=== PATIENT | female | born 1990 | race Two or more races ===

== ENCOUNTER → 2021-09-10 12:45 | Outpatient (BNVA) | payer OTHER, SELFPAY | PROVIDERS: PCP Internal Medicine; Referring Provider Internal Medicine; Visit Provider Physician Assistant ==

== ENCOUNTER → 2021-10-02 08:13 | Outpatient (BNVA) | payer OTHER, SELFPAY | PROVIDERS: PCP Internal Medicine; Visit Provider Dietitian, Registered | DX: E66.01 Morbid (severe) obesity due to excess calories (principal) | CPT/HCPCS: 97802 ==

== ENCOUNTER → 2021-10-22 08:14 | Outpatient (BNVA) | payer OTHER, SELFPAY | PROVIDERS: PCP Internal Medicine; Referring Provider Physician Assistant; Visit Provider Dietitian, Registered | DX: E66.9 Obesity, unspecified (principal) | CPT/HCPCS: 97803 ==

== ENCOUNTER → 2021-11-04 13:30 | Outpatient (BNVA) | payer OTHER, SELFPAY | PROVIDERS: PCP Internal Medicine; Visit Provider Counselor Mental Health | DX: Z13.89 Encounter for screening for other disorder (principal) ==

== ENCOUNTER → 2021-11-18 08:15 | Outpatient (BNVA) | payer OTHER, SELFPAY | PROVIDERS: PCP Internal Medicine; Referring Provider Physician Assistant; Visit Provider Dietitian, Registered | DX: Z13.89 Encounter for screening for other disorder (principal) ==

== ENCOUNTER 2024-05-08 10:30 | Outpatient (AMB) | payer OTHER, SELFPAY ==
--- NOTE | 2024-05-08 10:17 | A.OFFPC_ITS ---
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 Intake Note: New patient visit Allergies peanut Allergy (Severe, Verified 05/08/24 10:17) Anaphylaxis tree nut Allergy (Severe, Verified 05/08/24 10:17) Anaphylaxis, HIVE Tobacco use date assessed: 05/08/24 Dental Screening Dental Screen Date: 05/08/24 Did you have a dental visit in the last 12 months?: No Did you have a dental problem in the last 6 months where you did not have access to dental care?: No Was dental information given to patient?: Yes HPI HPI Comments 2 History of Present Illness Details This is a 34-year-old female with a past medical history of binge eating disorder, depression, obstructive sleep apnea, PCOS, asthma and morbid obesity presenting to [facility]. She transferred from [facility]. She is a hospital discharge follow up. She brought records from the hospitalization to her appointment today. Patient had acute hypoxic respiratory failure with hypercapnia secondary to status asthmaticus that was exacerbated by parainfluenza viral infection and community acquired pneumonia. She required intubation 02/07/2024. She was extubated on 02/18/2024 to BiPAP and weaned down to room air. She was treated with a course of antibiotics, Depo-Medrol and budesonide and oral prednisone. She was evaluated for cardiomyopathy with echocardiogram showing 40-45% ejection fraction. Cardiology was consulted. She was instructed to remain on Lasix 40 mg twice daily on discharge. She had an KAMILA. She had normal renal function prior to admission. During admission creatinine peaked at 2.49 and at discharge was between 1.4 and 1.6. Notes indicate she had elevated transaminase levels secondary to congestive hepatopathy. She was discharged to [place] for 5 days. She did PT and OT. Today patient says she is doing much better. She feels thankful to be alive. It was very traumatic. Her blood pressure is elevated today. Patient attributes this to healthcare anxiety stemming from the hospitalization. She says typically her blood pressure is 120/80. Dr.. Guillen is her expressive art therapist. She had an echo 04/21/24. She did not get the results yet. She has a follow up scheduled. She continues Lasix 40 mg twice daily and potassium supplementation. She monitors her weight every day. She is following a low-sodium diet. She has lost weight. Dr. Shirley is her color matcher. She had pulmonary function tests done in March, and she has a follow up in June. She has a center based sleep study scheduled this week. She uses a CPAP at night. She is not on supplemental oxygen. She was on Breo in rehab. She had a cold a week ago. She required her rescue inhaler for wheezing, and her symptoms resolved. She quit smoking cigarettes entirely. She smokes a small amount of cannabis once a month. This is substantially less than she was using prior to hospitalization. She takes Seroquel as needed from the hospital at night to help her sleep. She is not using this frequently. She was seeing a traditional therapist, and now she has transferred care to a holistic therapist. She feels well supported by friends and family. She is treated with Prozac for depression. She needs a refill on the medication. She went through a break-up last year after a 3 year relationship. There was also a lot of changes at her job. She works at an [employer] center. Her epipen is UTD. She is allergic to peanuts and tree nuts. ROS: Constitutional: No unexplained weight loss, fever, chills, fatigue or night sweats. Respiratory: No shortness of breath, cough or sputum production. Cardiovascular: No chest pain, chest pressure or chest discomfort. No palpitations or pedal edema. Psychiatric: No SI/HI. Physical exam: Constitutional: Alert, in no distress. Neck: Supple, Full range of motion. No lymphadenopathy. Respiratory: Clear to auscultation. Cardiovascular: S1 S2 regular. No murmurs. Neurologic: No focal neurological deficits. Extremities: Warm and well perfused. No clubbing, cyanosis or edema. Psychiatric: Normal mood and affect [facility] Medical History (Updated 05/08/24 @ 11:46 by MICHELE Kam) Major depressive disorder Severe obesity KAMILA (acute kidney injury) History of fluid overload Cardiomyopathy CAP (community acquired pneumonia) Respiratory failure with hypoxia and hypercapnia Surgical History (Updated 09/10/21 @ 13:00 by Franchesca España CMA) Hx of tonsillectomy Family History (Updated 05/08/24 @ 10:18 by Sugey Nesbitt CMA) Mother Lupus Psoriasis Kidney stone Asthma Allergies Father Thyroid condition Asthma Addiction Hypertension Stroke Brother ADHD Brother Autism Brother Obesity Brother Obesity Sister Obesity Social History (Updated 09/10/21 @ 13:06 by Franchesca España CMA) Housing: Apartment Alcohol intake: current Alcohol intake frequency: holidays/special occasions only Patient Tobacco Use Status: Former Tobacco user Cigarettes Per Day: 5 Years Smoked: 10 e-Cigarette/Vaping Use: Never Used Second Hand Smoke Exposure: No service: No Current occupational status: employed 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 How often do you have a drink containing alcohol?: Monthly or less 2. How many drinks containing alcohol do you have on a typical day when you are drinking?: 1 or 2 3. How often do you have six or more drinks on one occasion?: Never Total Score: 1 Physical exam (Primary Care) Vital Signs: Last Vital Signs Temp 98.8 F 05/08/24 10:44 Pulse 96 05/08/24 10:44 Resp 18 05/08/24 10:44 BP 141/77 H 05/08/24 10:44 Pulse Ox 98 05/08/24 10:44 Oxygen Delivery Method Room Air 05/08/24 10:44 BMI result Body Mass Index 60.6 Tobacco/Smoking Status: Tobacco use Status Tobacco use date assessed 05/08/24 05/08/24 10:19 Patient Tobacco Use Status Former Tobacco user 05/08/24 10:19 e-Cigarette/Vaping Use Never Used 05/08/24 10:19 Assessment and Plan Assessment & Plan (1) Major depressive disorder: Code(s): F32.9 - Major depressive disorder, single episode, unspecified Qualifiers: Major depression recurrence: recurrent Active/Remission status: currently active Major depression episode severity: unspecified Qualified Code(s): F33.9 - Major depressive disorder, recurrent, unspecified (2) MARJORIE on CPAP: Code(s): G47.33 - Obstructive sleep apnea (adult) (pediatric); Z99.89 - Dependence on other enabling machines and devices (3) Asthma: Code(s): J45.909 - Unspecified asthma, uncomplicated Qualifiers: Asthma severity: mild Asthma persistence: persistent Asthma complication type: uncomplicated Qualified Code(s): J45.30 - Mild persistent asthma, uncomplicated (4) Cardiomyopathy: Code(s): I42.9 - Cardiomyopathy, unspecified Qualifiers: Cardiomyopathy type: unspecified Qualified Code(s): I42.9 - Cardiomyopathy, unspecified (5) CAP (community acquired pneumonia): Code(s): J18.9 - Pneumonia, unspecified organism Qualifiers: Laterality: unspecified laterality Qualified Code(s): J18.9 - Pneumo molly, unspecified organism (6) Respiratory failure with hypoxia and hypercapnia: Code(s): J96.91 - Respiratory failure, unspecified with hypoxia; J96.92 - Respiratory failure, unspecified with hypercapnia Qualifiers: Chronicity: acute Qualified Code(s): J96.01 - Acute respiratory failure with hypoxia; J96.02 - Acute respiratory failure with hypercapnia (7) KAMILA (acute kidney injury): Code(s): N17.9 - Acute kidney failure, unspecified (8) Morbid obesity: Code(s): E66.01 - Morbid (severe) obesity due to excess calories Plan The patient recovered well following hospitalization for acute respiratory failure secondary to asthma exacerbation due to parainfluenza virus infection and community-acquired pneumonia. She went back to work last week. 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 She is doing fine with this. She feels well supported by her therapist and friends and family. I refilled her fluoxetine. She can continue Seroquel 25 mg at night as needed. She does not take it frequently. She had an echocardiogram repeated. Results are pending. She continues Lasix per Cardiology recommendations. No evidence of fluid overload on exam today. She will contact her color matcher to ask if she should restart a maintenance inhaler as she was on Breo during rehab. I recommended calling today rather than waiting until the follow up in June since we are heading into the viral season. I recommend seasonal influenza vaccine and pneumonia vaccine. Check CMP. Patient will continue her efforts at weight loss. We can discuss options to support weight loss in more detail at her follow up if she is open to that. Continue CPAP. She has a sleep study scheduled this week. Patient's blood pressure is mildly elevated today. She has PTSD related to healthcare now. I gave her a prescription for a blood pressure cuff. She will monitor at home a couple of times per week and bring the cuff and home log to her appointment in a month. Orders: Orders Comprehensive Met. Panel Today N17.9 - Acute kidney failure, unspecified Medications: New fluoxetine 10 mg PO DAILY 90 caps 3RF blood pressure kit-extra large As directed 1 ea 0RF blood pressure kit-extra large As directed 1 ea 0RF Coding Level of Care Code New Pt Level 4 (48820) Complex EM visit Add On G2211 Diagnoses Episode of recurrent major depressive disorder, unspecified depression episode severity F33.9 Major depression recurrence: recurrent Active/Remission status: currently active Major depression episode severity: unspecified MARJORIE on CPAP G47.33; Z99.89 Mild persistent asthma without complication J45.30 Asthma severity: mild Asthma persistence: persistent Asthma complication type: uncomplicated Cardiomyopathy, unspecified type I42.9 Cardiomyopathy type: unspecified Community acquired pneumonia, unspecified laterality J18.9 Laterality: unspecified laterality Acute respiratory failure with hypoxia and hypercapnia J96.01; J96.02 Chronicity: acute KAMILA (acute kidney injury) N17.9 Morbid obesity E66.01
[2024-05-08 10:44] VITALS: BP 141/77; PULSE 96; RESP 18; TEMP 37.1; O2SAT 98; BMI 60.6
[2024-05-08 10:54] VITALS: BP 137/94
== END 2024-05-08 11:26 | disposition home or self-care (01) ==
PROVIDERS: PCP Internal Medicine; Visit Provider Physician Assistant Medical
DX: I42.9 Cardiomyopathy, unspecified (principal); F33.9 Major depressive disorder, recurrent, unspecified; Z68.44 Body mass index [BMI] 60.0-69.9, adult; E66.01 Morbid (severe) obesity due to excess calories; J96.01 Acute respiratory failure with hypoxia; J96.02 Acute respiratory failure with hypercapnia; N17.9 Acute kidney failure, unspecified; G47.33 Obstructive sleep apnea (adult) (pediatric); Z99.89 Dependence on other enabling machines and devices; J45.30 Mild persistent asthma, uncomplicated; J18.9 Pneumonia, unspecified organism

== ENCOUNTER → 2024-05-08 10:30 | Outpatient (BNVA) | payer OTHER, SELFPAY | PROVIDERS: PCP Internal Medicine; Visit Provider Physician Assistant Medical ==

== ENCOUNTER 2024-05-08 11:31 | Outpatient (REF) | payer OTHER, SELFPAY ==
[2024-05-08 14:41] LABS: Alanine Aminotransferase 12 U/L (0-31); Alkaline Phosphatase 49 U/L (39-117); Anion Gap 11 (12-20); Aspartate Amino Transferase 10 U/L (5-31); Bilirubin Total 0.3 mg/dL (0.0-1.0); Blood Urea Nitrogen 19 mg/dL (9-16); Calcium 9.9 mg/dL (8.4-10.2); Carbon Dioxide 31 mmol/L (22-29); Chloride 104 mmol/L (96-108); Estimated Glomerular Filt Rate > 60; Glucose Random 91 mg/dL (60-115); Potassium 4.1 mmol/L (3.3-5.1); Sodium 142 mmol/L (135-145); Total Protein 7.3 g/dL (6.5-8.0)
== END 2024-05-08 11:32 | disposition home or self-care (01) ==
LOC: HO.WFDLDS 11:31
PROVIDERS: Visit Provider Physician Assistant Medical
DX: N17.9 Acute kidney failure, unspecified (principal)
CPT/HCPCS: 36415; 80053

== ENCOUNTER 2024-06-05 09:57 | Outpatient (AMB) | payer OTHER, SELFPAY ==
--- NOTE | 2024-06-05 10:03 | MHC.PC.OV ---
Vital Signs 06/05/24 10:06 Height 5 ft 3 in Weight 358 lb 2 oz BMI 63.4 BP 128/82 Blood Pressure Location Lt brachial Position Sitting Respiration 18 Pulse 105 H Pulse Source Pulse Oximeter Pulse Oximetry (%) 95 Oxygen Delivery Method Room Air Intake Visit Reasons: recheck blood pressure Intake Note: Blood pressure follow up. Needs refill on furosemide 40 mg. 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 Elevated blood pressure her blood pressure was 118/70 at her sleep study last week. Today it is 128/82. She she was checking it at home, but her cuff size is too small and was giving her falsely elevated readings. She has a prescription to get a new cuff. Pulmonary-as you recall the patient had acute hypoxic respiratory failure with hypercapnia secondary to status asthmaticus that was exacerbated by parainfluenza viral infection and community acquired pneumonia. She required intubation 02/07/2024. She was extubated on 02/18/2024 to BiPAP and weaned down to room air. She was treated with a course of antibiotics, Depo-Medrol and budesonide and oral prednisone. She was evaluated for cardiomyopathy with echocardiogram showing 40-45% ejection fraction. Cardiology was consulted. She was instructed to remain on Lasix 40 mg twice daily. She ran out of the prescription a week ago because the last refill from the cardiology office was sent as 40 mg once a day. She does note increased lower extremity edema and weight, but she denies increased shortness of breath, wheezing, chest pain or weakness. She is on a potassium supplement. Dr.. Guillen is her fermenter wine. She had an echo 04/21/24. She did not get the results yet. She is following a low-sodium diet. Patient says she has gained some weight due to dietary indiscretion and being off Lasix for the past week. She is seen weight management in the past, but she does not want surgery. She isn't interested in weight loss medications at this time including GLP 1. She is going to try Noom again. She has a follow up with her fermenter wine in August. Dr. 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 She had pulmonary function tests done in March, and she has a follow up in two weeks.ek. She got her new Bipap last week, and she feels like a new woman. Sleep feels restorative. Daytime fatigue resolved. She is working full-time again, and she isn't feeling like she has to fight through the [place]. She's required her albuterol rescue 3 times within the past month for wheezing. She is going to receive the flu vaccine and pneumonia vaccine at her pharmacy. She quit smoking cigarettes entirely. She has not needed to take Seroquel at night for sleep since her last visit. She is on Prozac for depression which works well. She saw a traditional therapist in the past, and she transferred care to a holistic therapist. Patient works at an [employer]. ROS: Constitutional: No unexplained weight loss, fever, chills, fatigue or night sweats. Respiratory: No shortness of breath, cough or sputum production. Cardiovascular: No chest pain, chest pressure or chest discomfort. No palpitations. Psychiatric: No SI/HI. Physical exam: Constitutional: Alert, in no distress. Neck: Supple, Full range of motion. No lymphadenopathy. Respiratory: Clear to auscultation. No wheezes, crackles or rales. Cardiovascular: S1 S2 regular. No murmurs. Neurologic: No focal neurological deficits. Extremities: Warm and well perfused. No clubbing, cyanosis. 2+ bilateral lower extremity edema. Psychiatric: Normal mood and affect [facility] Medical History (Updated 06/05/24 @ 10:45 by MICHELE Kam) Morbid obesity Asthma MARJORIE on CPAP MARJORIE (obstructive sleep apnea) Major depressive disorder Severe obesity KAMILA (acute kidney injury) History of fluid overload Cardiomyopathy CAP (community acquired pneumonia) Respiratory failure with hypoxia and hypercapnia Surgical History (Updated 09/10/21 @ 13:00 by Franchesca España CMA) Hx of tonsillectomy Family History (Updated 05/08/24 @ 10:18 by Sugey Nesbitt CMA) Mother Lupus Psoriasis Kidney stone Asthma Allergies Father Thyroid condition Asthma Addiction Hypertension Stroke Brother ADHD Brother Autism Brother Obesity Brother Obesity Sister Obesity Social History (Updated 09/10/21 @ 13:06 by Franchesca España [facility]) Housing: Apartment Alcohol intake: current Alcohol intake frequency: holidays/special occasions only Patient Tobacco Use Status: Former Tobacco user Cigarettes Per Day: 5 Years Smoked: 10 e-Cigarette/Vaping Use: Never Used Second Hand Smoke Exposure: No service: No Current occupational status: employed 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 1. Little interest or pleasure in doing things: several days 2. Feeling down, depressed, or hopeless: several days 3. Trouble falling or staying asleep, or sleeping too much: more than half the days 4. Feeling tired or having little energy: nearly every day 5. Poor appetite or overeating: several days 6. Feeling bad about yourself - or that you are a failure or have let yourself or your family down: not at all 7. Trouble concentrating on things, such as reading the newspaper or watching television: several days 8. Moving or speaking so slowly that other people could have noticed. Or the opposite - being so fidgety or restless that you have been moving around a lot more than usual: not at all 9. Thoughts that you would be better off or of hurting yourself in some way: not at all Total score: 9 Depression Screening Interpretation: Positive Depression Screening Follow-up: Existing condition and In treatment Depression Screening Done: Yes Source: Developed by Drs. Casey Samuel, Diane Doyle, Surya James and colleagues, with an educational newton from [employer]. Thrive Questionnaire I am a: Patient What is your living situation today?: I have a steady place to live Within the past 12 months, did the food you bought not last and you didn't have the money to get more?: Never true Within the past 12 months, did you worry whether your food would run out before you got money to buy more?: Never true Do you have trouble paying for medicines?: No Do you have trouble getting transportation to medical appointments?: No Do you have trouble paying your heating and electricity bill?: No Do you have trouble taking care of your child, family member or friend?: No Do you have trouble with day-to-day activities such as bathing, preparing meals, shopping, managing finances, etc.?: No Are you currently unemployed and looking for a job?: No Are you interested in more education?: No Please select the resources that you would like help with: None Currently or been in a relationship where the following occur: No concerns reported THRIVE Score: 0 AUDIT C Alcohol Use Questionnaire (AUDIT-C) 1. How often do you have a drink containing alcohol?: Monthly or less Total Score: 1 CONOR-7 AMB Questionnaire CONOR-7 Feeling nervous, anxious, or on edge: 1 = Several days Not being able to stop or control worryin = Several days Worrying too much about different things: 0 = Not at all Trouble relaxin = Several days Being so restless that it is hard to sit still: 0 = Not at all Becoming easily annoyed or irritable: 1 = Several days Feeling afraid as if something awful might happen: 0 = Not at all Total CONOR-7 score (0-4 normal; 5-9 mild; 10-14 moderate; 15-21 severe): 4 Source: Developed by Drs. Casey Samuel, Diane Doyle, Surya James and colleagues, with an educational newton from [employer]. Physical exam (Primary Care) Vital Signs: Last Vital Signs Pulse 105 H 06/05/24 10:06 Resp 18 06/05/24 10:06 BP 128/82 06/05/24 10:06 Pulse Ox 95 06/05/24 10:06 Oxygen Delivery Method Room Air 06/05/24 10:06 BMI result Body Mass Index 63.4 Tobacco/Smoking Status: Tobacco use Status Tobacco use date assessed 05/08/24 06/05/24 10:04 Patient Tobacco Use Status Former Tobacco user 06/05/24 10:04 e-Cigarette/Vaping Use Never Used 06/05/24 10:04 PHQ-9: PHQ-9 Score PHQ-9: Total score 9 06/05/24 10:29 Depression Screening Interpretation: Positive Depression Screening Follow-up: Existing condition and In treatment Currently or been in a relationship where the following occur: No concerns reported Coding Level of Care Code Est Pt Level 4 (86297) Complex EM visit Add On G2211 Diagnoses Acute respiratory failure with hypoxia and hypercapnia J96.01; J96.02 Chronicity: acute MARJORIE (obstructive sleep apnea) G47.33 Morbid obesity E66.01 Mild persistent asthma without complication J45.30 Asthma severity: mild Asthma persistence: persistent Asthma complication type: uncomplicated Cardiomyopathy, unspecified type I42.9 Cardiomyopathy type: unspecified Episode of recurrent major depressive disorder, unspecified depression episode severity F33.9 Major depression recurrence: recurrent Active/Remission status: currently active Major depression episode severity: unspecified Assessment & Plan Assessment & Plan (1) Respiratory failure with hypoxia and hypercapnia: Code(s): J96.91 - Respiratory failure, unspecified with hypoxia; J96.92 - Respiratory failure, unspecified with hypercapnia Category: Medical Qualifiers: Chronicity: acute Qualified Code(s): J96.01 - Acute respiratory failure with hypoxia; J96.02 - Acute respiratory failure with hypercapnia (2) MARJORIE (obstructive sleep apnea): Code(s): G47.33 - Obstructive sleep apnea (adult) (pediatric) Category: Medical (3) Morbid obesity: Code(s): E66.01 - Morbid (severe) obesity due to excess calories Category: Medical (4) Asthma: Code(s): J45.909 - Unspecified asthma, uncomplicated Category: Medical Qualifiers: Asthma severity: mild Asthma persistence: persistent Asthma complication type: uncomplicated Qualified Code(s): J45.30 - Mild persistent asthma, uncomplicated (5) Cardiomyopathy: Code(s): I42.9 - Cardiomyopathy, unspecified Category: Medical Qualifiers: Cardiomyopathy type: unspecified Qualified Code(s): I42.9 - Cardiomyopathy, unspecified (6) Major depressive disorder: Code(s): F32.9 - Major depressive disorder, single episode, unspecified Category: Medical Qualifiers: Major depression recurrence: recurrent Active/Remission status: currently active Major depression episode severity: unspecified Qualified Code(s): F33.9 - Major depressive disorder, recurrent, unspecified Plan The patient and I discussed the impact of morbid obesity on her medical conditions. She declines referral to weight loss management, and she does not want to take weight loss medications. She is going to try Noom again. I refilled her furosemide prescription. She will pick it up today. Recent electrolytes and renal function within normal. Patient will keep her follow up appointment scheduled with pulmonology and Cardiology. She will receive influenza and pneumococcal vaccines at the pharmacy. She is feeling well using her new BiPAP for MARJORIE. Stable on fluoxetine for depression. She is not currently taking Seroquel, but I will keep it on her med list for now. Patient's blood pressure normalized. She does have healthcare anxiety following her hospital admission. Follow up in 6 weeks for a physical exam. Medications: Changed From furosemide 40 mg PO BID To furosemide 40 mg PO BID 180 tabs 1RF 90 days
[2024-06-05 10:06] VITALS: BP 128/82; PULSE 105; RESP 18; O2SAT 95; BMI 63.4
== END 2024-06-05 10:43 | disposition home or self-care (01) ==
PROVIDERS: PCP Physician Assistant Medical; Visit Provider Physician Assistant Medical
DX: J96.01 Acute respiratory failure with hypoxia (principal); J96.02 Acute respiratory failure with hypercapnia; E66.01 Morbid (severe) obesity due to excess calories; Z68.44 Body mass index [BMI] 60.0-69.9, adult; I42.9 Cardiomyopathy, unspecified; F33.9 Major depressive disorder, recurrent, unspecified; G47.33 Obstructive sleep apnea (adult) (pediatric); J45.30 Mild persistent asthma, uncomplicated

== ENCOUNTER → 2024-06-05 09:57 | Outpatient (BNVA) | payer OTHER, SELFPAY | PROVIDERS: PCP Physician Assistant Medical; Visit Provider Physician Assistant Medical ==

== ENCOUNTER 2024-07-20 15:33 | Outpatient (AMB) | payer OTHER, SELFPAY ==
--- NOTE | 2024-07-20 15:41 | A.OFFPC_ITS ---
Vital Signs 07/20/24 15:45 Height 5 ft 3 in Weight 361 lb BMI 63.9 BP 115/73 Blood Pressure Location Rt brachial Position Sitting Pulse 107 H Pulse Source Pulse Oximeter Temp 98.2 F Temp Source Temporal Artery Scan Pulse Oximetry (%) 95 Oxygen Delivery Method Room Air Intake Visit Reasons: Has cold, negative covid test Intake Note: Chest congestion, cough. SX started Wednesday. Tested for covid on Wednesday and was negative. Allergies peanut Allergy (Severe, Verified 07/20/24 15:42) Anaphylaxis tree nut Allergy (Severe, Verified 07/20/24 15:42) Anaphylaxis, HIVE Tobacco use date assessed: 05/08/24 Dental Screening Dental Screen Date: 05/08/24 HPI HPI Comments History of Present Illness Details This is a 34-year-old female with a past medical history of MARJORIE, morbid obesity, asthma, community-acquired pneumonia resulting in hospitalization for respiratory failure in 2023 presenting for a sick visit. Patient was informed and verbally consented to the use of an ambient scribe for clinic note documentation during this visit. The symptoms began on , coinciding with dry throat that escalated by Wednesday to cough, wheezing and shortness of breath. Interim self-care involved ekta shots, vitamin C, hydration, and albuterol treatments every four hours which provided relief. 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 This past Wednesday the patient was working from home and contacted our office for evaluation albeit having titrated down albuterol treatment. Her symptoms further included coughing up white phlegm without fever or chills and a minor degree of wheezing and dyspnea. Oxygen saturation was stable, reporting 95% or higher. The historical diagnosis of COVID and recent course of Paxlovid without respiratory complications were noted. The current exacerbation began after recent beginning of Symbicort for maintenance inhalation therapy. She is followed by pulmonology. She quit smoking 6 months ago. She took a COVID test that was negative. Today she used her nebulizer only this morning, and she took her rescue heel inhaler once in the afternoon. Patient says she continues to have a very deep cough. ROS: Constitutional: No fevers or chills or night sweats. Eyes: No eye redness or discharge ENT: No ear pain or sore throat. + nasal congestion. Respiratory: See HPI. No hemoptysis. Cardiovascular: No chest pain, palpitations or increased pedal edema. Gastrointestinal: No anorexia, nausea, vomiting or diarrhea. Physical exam: Constitutional: Alert, in no distress. Ear, Nose and Throat: Canals clear. TMs normal. Nasal mucosa erythematous, clear nasal discharge present. No oral lesions, erythema or exudates. Neck: Supple, Full range of motion. No lymphadenopathy. Respiratory: crackles in right middle/lower posterior lung nesbitt which clear after coughing, normal respiratory effort, no dyspnea Cardiovascular: S1 S2 regular. No murmurs. Extremities: Warm and well perfused. No clubbing, cyanosis or edema. Psychiatric: Normal mood and affect [facility] Medical History (Updated 07/20/24 @ 16:29 by MICHELE Kam) Asthma exacerbation Morbid obesity Asthma MARJORIE on CPAP MARJORIE (obstructive sleep apnea) Major depressive disorder Severe obesity KAMILA (acute kidney injury) History of fluid overload Cardiomyopathy CAP (community acquired pneumonia) Respiratory failure with hypoxia and hypercapnia Surgical History (Updated 09/10/21 @ 13:00 by Franchesca España CRUSHER MACHINE OPERATOR) Hx of tonsillectomy Family History (Updated 05/08/24 @ 10:18 by Sugey Nesbitt CMA) Mother Lupus Psoriasis Kidney stone Asthma Allergies Father Thyroid condition Asthma Addiction Hypertension Stroke Brother ADHD Brother Autism Brother Obesity Brother Obesity Sister Obesity Social History (Updated 09/10/21 @ 13:06 by Franchesca España CMA) Housing: Apartment Alcohol intake: current Alcohol intake frequency: holidays/special occasions only Patient Tobacco Use Status: Former Tobacco user Cigarettes Per Day: 5 Years Smoked: 10 e-Cigarette/Vaping Use: Never Used Second Hand Smoke Exposure: No service: No Current occupational status: employed 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) Cognitive needs: No Hearing needs: No Vision needs: No Questionnaire Thrive Questionnaire Date Thrive assessed: 06/05/24 I am a: Patient What is your living situation today?: I have a steady place to live Within the past 12 months, did the food you bought not last and you didn't have the money to get more?: Never true Within the past 12 months, did you worry whether your food would run out before you got money to buy more?: Never true Do you have trouble paying for medicines?: No Do you have trouble getting transportation to medical appointments?: No Do you have trouble paying your heating and electricity bill?: No Do you have trouble taking care of your child, family member or friend?: No Do you have trouble with day-to-day activities such as bathing, preparing meals, shopping, managing finances, etc.?: No Are you currently unemployed and looking for a job?: No Are you interested in more education?: No Please select the resources that you would like help with: None Currently or been in a relationship where the following occur: No concerns reported THRIVE Score: 0 Physical exam (Primary Care) Vital Signs: Last Vital Signs Temp 98.2 F 07/20/24 15:45 Pulse 107 H 07/20/24 15:45 BP 115/73 07/20/24 15:45 Pulse Ox 95 07/20/24 15:45 Oxygen Delivery Method Room Air 07/20/24 15:45 BMI result Body Mass Index 63.9 Tobacco/Smoking Status: Tobacco use Status Tobacco use date assessed 05/08/24 07/20/24 15:49 Patient Tobacco Use Status Former Tobacco user 07/20/24 15:49 e-Cigarette/Vaping Use Never Used 07/20/24 15:49 Thrive Assessment: Date of Thrive Assessment Date Thrive assessed 06/05/24 07/20/24 15:49 Currently or been in a relationship where the following occur: No concerns reported Coding Level of Care Code Est Pt Level 4 (22110) Complex EM visit Add On G2211 Diagnoses Asthma exacerbation J45.901 Cough R05.9 Assessment & Plan Assessment & Plan (1) Asthma exacerbation: Code(s): J45.901 - Unspecified asthma with (acute) exacerbation Category: Medical (2) Cough: Code(s): R05.9 - Cough, unspecified Plan Patient prescribed prednisone and azithromycin. Stat chest x-ray ordered. Continue albuterol via nebulizer or inhaler every 4 hours as needed for coughing, wheezing and shortness of breath. Continue Symbicort 2 puffs twice daily. Warning signs warranting ER evaluation reviewed. Orders: Orders XR chest 2V Today R05.9 - Cough, unspecified Medications: New albuterol sulfate 90 mcg/actuation 2 puffs inhalation Q4H PRN 8.5 grams 3RF wheezing prednisone orally daily; Take 3 tabs po qam x 3 days, then take 2 tabs po qam x 3 days, then take 1 tab po qam x 3 days 18 tabs 0RF azithromycin For 250 mg dose pack: take 500 mg today (day 1), then 250 mg for 4 days (days 2-5) PO 6 tabs 0RF
[2024-07-20 15:45] VITALS: BP 115/73; PULSE 107; TEMP 36.8; O2SAT 95; BMI 63.9
== END 2024-07-20 16:18 | disposition home or self-care (01) ==
PROVIDERS: PCP Physician Assistant Medical; Visit Provider Physician Assistant Medical
DX: J45.901 Unspecified asthma with (acute) exacerbation (principal); R05.9 Cough, unspecified

== ENCOUNTER 2024-07-22 13:26 | Outpatient (REF) | payer OTHER, SELFPAY ==
--- NOTE | ~2024-07-22 | XR_ITS ---
EXAMINATION: XR CHEST CLINICAL INFORMATION: R05.9 - Cough, unspecified COMPARISON: None available. TECHNIQUE: 2 views of the chest were obtained. FINDINGS: There is no gross pneumothorax. Cardiac silhouette is enlarged. Limited visualization due to body habitus. No significant pleural effusion. Dextroscoliosis of the thoracic spine with multilevel degenerative changes. Prominence of the right hilar region possibly related to vascular technical factors or adenopathy or other lesion. Mild retrocardiac streaky opacities. XR/XR chest 2V IMPRESSION: 1. Cardiac silhouette is enlarged. Limited visualization due to body habitus. 2. Prominence of the right hilar region possibly related to vascular technical factors or adenopathy or other lesion. 3. Mild retrocardiac streaky opacities. This study was presented today to July 19, 2024 for interpretation. Stat results provided at this time as requested by referring provider. Electronically signed by: Emmie Mccoy MD 07/24/2024 09:01 AM KORI
== END 2024-07-22 13:27 | disposition home or self-care (01) ==
LOC: HO.HMGCX 13:26
PROVIDERS: PCP Physician Assistant Medical; Visit Provider Physician Assistant Medical
DX: R05.9 Cough, unspecified (principal)
CPT/HCPCS: 71046

== ENCOUNTER 2024-12-07 14:32 | Outpatient (AMB) | payer OTHER, SELFPAY ==
--- NOTE | 2024-12-07 14:35 | A.OFFPC_ITS ---
Vital Signs 12/07/24 14:43 Height 5 ft 3 in Weight 373 lb 2 oz BMI 66.1 BP 116/72 Blood Pressure Location Rt brachial Position Sitting Respiration 18 Pulse 91 Pulse Source Pulse Oximeter Temp 97.9 F Temp Source Temporal Artery Scan Pulse Oximetry (%) 96 Oxygen Delivery Method Room Air Intake Visit Reasons: annual physical Intake Note: Miriam presents in the office today for her annual physical. Allergies peanut Allergy (Severe, Verified 12/07/24 14:39) Anaphylaxis tree nut Allergy (Severe, Verified 12/07/24 14:39) Anaphylaxis, HIVE mold Allergy (Verified 12/07/24 14:39) Asthma flare Seasonal Allergies Allergy (Verified 12/07/24 14:39) Runny nose, watery eyes Cat dander Allergy (Uncoded 12/07/24 14:38) Itchy eyes, SOB Medication List - Last Reconciled 12/08/24 by MICHELE Kam albuterol sulfate 90 mcg/actuation 2 puffs inhalation Q4H PRN blood pressure kit-extra large As directed budesonide-formoterol 160-4.5 mcg/actuation (Symbicort) 1 inh inhalation BID empagliflozin (Jardiance) 10 mg PO DAILY epinephrine (EpiPen) 0.3 mg (0.3 mL) IM Q10M PRN fluoxetine 10 mg PO DAILY furosemide 40 mg PO BID 90 days loratadine 10 mg PO DAILY losartan 25 mg PO DAILY potassium chloride ER 20 mEq PO DAILY Tobacco use date assessed: 12/07/24 Dental Screening Dental Screen Date: 12/07/24 Did you have a dental visit in the last 12 months?: No Did you have a dental problem in the last 6 months where you did not have access to dental care?: No Was dental information given to patient?: Yes HPI HPI Comments History of Present Illness Details This is a 34-year-old female with a past medical history of binge eating disorder, depression, obstructive sleep apnea, PCOS, asthma and morbid obesity presenting for a physical exam. The patient has a history of acute hypoxic respiratory failure with hypercapnia secondary to status asthmaticus that was exacerbated by parainfluenza viral infection and community acquired pneumonia requiring intubation in February 2024. During hospitalization echocardiogram showed left ventricular ejection fraction around 45%, and Cardiology was consulted. Patient reports having repeat echocardiogram in April 2024, but we do not have the results from that or her most recent cardiology note. Patient said she had a recent follow up, and they told her she is doing well. She remains on furosemide, losartan, Jardiance. Dr. Shirley is her b2b sales consultant. She is using a BiPAP and uses supplemental oxygen at night. She is on Symbicort and albuterol as needed. She also takes loratadine for allergies. She quit smoking cigarettes following hospitalization. She is on Prozac for depression which works well. She is seeing a holistic therapist. The patient has had ongoing discussions about obesity with her providers. BMI is 66.1. She is not interested in bariatric surgery. GLP 1 has been discussed, but she continues to decline it today. She would like to be referred to dietitian because she has not been able to lose weight on her own. She recognizes how her weight impacts her health. She has been overweight all her life. She sees Gynecology for annual exams. She did not receive the pneumonia vaccine which was unavailable at the office today. She was asked to get this at her pharmacy, and I explained the importan ce of it. Also recommended remaining up-to-date with COVID-19 boosters and annual influenza vaccine. She declined Tdap vaccine. ROS: Constitutional: No unexplained weight loss, fever, chills, fatigue or night sweats. Eyes: No vision changes, blurry vision, double vision, eye pain, eye redness, eye discharge. ENT: No hearing loss, sneezing, congestion, runny nose or sore throat. Respiratory: No shortness of breath, cough or sputum production. Cardiovascular: No chest pain, chest pressure or chest discomfort. No palpitations or pedal edema. Gastrointestinal: No anorexia, nausea, vomiting or diarrhea. No abdominal pain or blood in stool. Genitourinary: No dysuria, hematuria, urinary frequency. Neurologic: No headache, dizziness, syncope, unilateral weakness, ataxia, num bness or tingling in the extremities. Musculoskeletal: No muscle pain, back pain, joint pain or swelling. Hematologic/Lymphatics: No bleeding or bruising. No painful lymph nodes. Skin: No rash Endocrine: No cold or heat intolerance. No polyuria or polydipsia. Psychiatric: No depression symptoms and anxiety. No SI or HI. Physical exam: Constitutional: Alert, in no distress. Head: Normocephalic. Eyes: Pupils are equal, round and reactive to light. Extraocular muscles intact. Ear, Nose and Throat: Canals clear. TMs normal. Normal nasal mucosa. No nasal discharge. No oral lesions. Neck: Supple, Full range of motion. No lymphadenopathy. No palpable thyroid masses. Respiratory: Clear to auscultation. Cardiovascular: S1 S2 regular. No murmurs. Gastrointestinal: Abdomen soft, non-tender, non-distended. Normal bowel sounds. No palpable masses. Neurologic: No focal neurological deficits. Symmetric patellar reflexes. Moves all extremities spontaneously. Sensation intact bilaterally. Skin: No rash Musculoskeletal: No gross deformities. Normal range of motion. Extremities: Warm and well perfused. No clubbing, cyanosis. 1+ lower extremity edema bilaterally. Intact peripheral pulses. Psychiatric: Normal mood and affect [facility] Medical History (Updated 12/08/24 @ 09:34 by MICHELE Kam) Routine physical examination Asthma exacerbation Morbid obesity Asthma MARJORIE on CPAP MARJORIE (obstructive sleep apnea) Major depressive disorder Severe obesity KAMILA (acute kidney injury) History of fluid overload Cardiomyopathy CAP (community acquired pneumonia) Respiratory failure with hypoxia and hypercapnia Surgical History (Updated 09/10/21 @ 13:00 by Franchesca España CMA) Hx of tonsillectomy Family History Mother Lupus Psoriasis Kidney stone Asthma Allergies Father Thyroid condition Asthma Addiction Hypertension Stroke Brother ADHD Brother Autism Brother Obesity Brother Obesity Sister Obesity Social History (Updated 12/07/24 @ 14:41 by Suyapa Sy MA) Housing: Apartment Alcohol intake: current Alcohol intake frequency: holidays/special occasions only Patient Tobacco Use Status: Former Tobacco user Cigarettes Per Day: 5 Years Smoked: 10 e-Cigarette/Vaping Use: Never Used Second Hand Smoke Exposure: No Substance Use Type: Marijuana service: No Current occupational status: employed 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 1. Little interest or pleasure in doing things: not at all 2. Feeling down, depressed, or hopeless: not at all 3. Trouble falling or staying asleep, or sleeping too much: not at all 4. Feeling tired or having little energy: several days 5. Poor appetite or overeating: not at all 6. Feeling bad about yourself - or that you are a failure or have let yourself or your family down: not at all 7. Trouble concentrating on things, such as reading the newspaper or watching television: not at all 8. Moving or speaking so slowly that other people could have noticed. Or the opposite - being so fidgety or restless that you have been moving around a lot more than usual: not at all 9. Thoughts that you would be better off or of hurting yourself in some way: not at all Total score: 1 Depression Screening Interpretation: Negative Depression Screening Done: Yes 25957 - PHQ-9 Billing: Patient declined-do not bill Source: Developed by Drs. Casey Samuel, Diane Doyle, Surya James and colleagues, with an educational newton from [employer]. Thrive Questionnaire Date Thrive assessed: 12/07/24 I am a: Patient What is your living situation today?: I have a steady place to live Within the past 12 months, did the food you bought not last and you didn't have the money to get more?: Never true Within the past 12 months, did you worry whether your food would run out before you got money to buy more?: Never true Do you have trouble paying for medicines?: No Do you have trouble getting transportation to medical appointments?: No Do you have trouble paying your heating and electricity bill?: No Do you have trouble taking care of your child, family member or friend?: No Do you have trouble with day-to-day activities such as bathing, preparing meals, shopping, managing finances, etc.?: No Are you currently unemployed and looking for a job?: No Are you interested in more education?: No Please select the resources that you would like help with: None Currently or been in a relationship where the following occur: No concerns reported THRIVE Score: 0 AUDIT C Alcohol Use Questionnaire (AUDIT-C) 1. How often do you have a drink containing alcohol?: 2-4 times a month 2. How many drinks containing alcohol do you have on a typical day when you are drinking?: 1 or 2 3. How often do you have six or more drinks on one occasion?: Never Total Score: 2 Score Reviewed/Action Taken: No CONOR-7 AMB Questionnaire CONOR-7 Date CONOR - 7 assessed: 12/07/24 Feeling nervous, anxious, or on edge: 0 = Not at all Not being able to stop or control worryin = Not at all Worrying too much about different things: 0 = Not at all Trouble relaxin = Not at all Being so restless that it is hard to sit still: 0 = Not at all Becoming easily annoyed or irritable: 0 = Not at all Feeling afraid as if something awful might happen: 0 = Not at all Total CONOR-7 score (0-4 normal; 5-9 mild; 10-14 moderate; 15-21 severe): 0 Source: Developed by Drs. Casey Samuel, Diane Doyle, Surya James and colleagues, with an educational newton from [employer]. CONOR-7 Assessment Billing CONOR-7 Assessment Tool: CONOR-7 Assessment 16346 ACT Questionnaire In the past 4 weeks, how much of the time did your asthma keep you from getting as much done at work, school or at home?: None of the time During the past 4 weeks, how often have you had shortness of breath?: Not at all During the past 4 weeks, how often did your asthma symptoms wake you up at night or earlier than usual in the morning?: Not at all During the past 4 weeks, how often have you had to use your rescue inhaler or nebulizer medication?: Not at all How would you rate your asthma control during the past 4 weeks?: Well controlled Score: 24 Physical exam (Primary Care) Vital Signs: Last Vital Signs Temp 97.9 F 12/07/24 14:43 Pulse 91 12/07/24 14:43 Resp 18 12/07/24 14:43 BP 116/72 12/07/24 14:43 Pulse Ox 96 12/07/24 14:43 Oxygen Delivery Method Room Air 12/07/24 14:43 BMI result Body Mass Index 66.1 Tobacco/Smoking Status: Tobacco use Status Tobacco use date assessed 12/07/24 12/07/24 14:46 Patient Tobacco Use Status Former Tobacco user 12/07/24 14:46 e-Cigarette/Vaping Use Never Used 12/07/24 14:46 PHQ-9: PHQ-9 Score PHQ-9: Total score 1 12/07/24 14:48 Depression Screening Interpretation: Negative Thrive Assessment: Date of Thrive Assessment Date Thrive assessed 12/07/24 12/07/24 14:46 Currently or been in a relationship where the following occur: No concerns reported Coding Level of Care Code Est Pt Prev Care 18-39y(90748) Diagnoses MARJORIE (obstructive sleep apnea) G47.33 Morbid obesity E66.01 Mild persistent asthma without complication J45.30 Asthma severity: mild Asthma persistence: persistent Asthma complication type: uncomplicated Cardiomyopathy, unspecified type I42.9 Cardiomyopathy type: unspecified Episode of recurrent major depressive disorder, unspecified depression episode severity F33.9 Major depression recurrence: recurrent Active/Remission status: currently active Major depression episode severity: unspecified Routine physical examination Z00.00 Additional Codes CONOR-7 Assessment Billing - CONOR-7 Assessment Tool: CONOR-7 Assessment 48172 ([id number]) Assessment & Plan Assessment & Plan (1) MARJORIE (obstructive sleep apnea): Code(s): G47.33 - Obstructive sleep apnea (adult) (pediatric) Category: Medical (2) Morbid obesity: Code(s): E66.01 - Morbid (severe) obesity due to excess calories Category: Medical (3) Asthma: Code(s): J45.909 - Unspecified asthma, uncomplicated Category: Medical Qualifiers: Asthma severity: mild Asthma persistence: persistent Asthma complication type: uncomplicated Qualified Code(s): J45.30 - Mild persistent asthma, uncomplicated (4) Cardiomyopathy: Code(s): I42.9 - Cardiomyopathy, unspecified Category: Medical Qualifiers: Cardiomyopathy type: unspecified Qualified Code(s): I42.9 - Cardiomyopathy, unspecified (5) Major depressive disorder: Code(s): F32.9 - Major depressive disorder, single episode, unspecified Category: Medical Qualifiers: Major depression recurrence: recurrent Active/Remission status: currently active Major depression episode severity: unspecified Qualified Code(s): F33.9 - Major depressive disorder, recurrent, unspecified (6) Routine physical examination: Code(s): Z00.00 - Encounter for general adult medical examination without abnormal findings Category: Medical Plan Patient is seen today for a routine physical. As part of this visit we reviewed the following issues, which are considered and essential part of preventative health in this age group: - Breast Cancer screening - Annual Cylinder Valve Repairer exam - Blood pressure screening - Cholesterol screening - Osteoporosis prevention including calcium/vitamin D intake, weight bearing exercise & smoking cessation - Nutritional and exercise counseling - Counseling of injury prevention including fire prevention, smoke alarms and seat belt usage - Screening for depression - Prevention of and/or testing for infectious diseases - declined screening labs - Education about skin cancer - Recommendations about immunizations - Recommendation of an eye exam - Screening for substance abuse EpiPen refilled for food allergies. Administration reviewed. The patient and I discussed the impact of morbid obesity on her medical conditions. She declines weight loss medication and referral to bariatric surgery. She accepts referral to the registered dietitian. We will make a follow up appointment in 8 weeks for re-evaluation and to discuss medication further. She declines contraindications to GLP 1. Check labs. Continue routine follow up with pulmonology and Cardiology and current medications. Orders: Orders Comprehensive Met. Panel 12/07/24 E66.01 - Morbid (severe) obesity due to excess calories, J45.30 - Mild persistent asthma, uncomplicated Lipid Panel 12/07/24 E66.01 - Morbid (severe) obesity due to excess calories, E78.5 - Hyperlipidemia, unspecified, J45.30 - Mild persistent asthma, uncomplicated Hemoglobin A1c 12/07/24 E11.9 - Type 2 diabetes mellitus without complications, E66.01 - Morbid (severe) obesity due to excess calories, J45.30 - Mild persistent asthma, uncomplicated Cortisol Random 12/07/24 E66.01 - Morbid (severe) obesity due to excess calories Complete Blood Count no Diff 12/07/24 E66.01 - Morbid (severe) obesity due to excess calories, J45.30 - Mild persistent asthma, uncomplicated TSH reflex Free T4 12/07/24 E66.01 - Morbid (severe) obesity due to excess calories, J45.30 - Mild persistent asthma, uncomplicated Referrals Housetrailer Servicer Nutrition Referral E66.01 - Morbid (severe) obesity due to excess calories Medications: New epinephrine (EpiPen) for 2 doses 0.3 mg (0.3 mL) IM Q10M PRN 2 ea 0RF anaphylaxis Refilled fluoxetine 10 mg PO DAILY 90 caps 3RF
[2024-12-07 14:43] VITALS: BP 116/72; PULSE 91; RESP 18; TEMP 36.6; O2SAT 96; BMI 66.1
--- OUTSIDE RECORDS SUMMARY | 2024-12-07 16:36 | XMS_ITS | Data Portability ---
Author Organization MICHELE Gunn s, [address] Address [address] [place] [address] Care Team Providers Care Manager Art Name Role Phone NATALIE ENNIS Electronics Specialist Assessment No assessment recorded. Plan of Treatment Reminders Order Date Submit Date Provider Last Modified By Organization Details Last Modified Time Details Appointments None recorded. Lab None recorded. Referral None recorded. Procedures None recorded. Surgeries None recorded. Imaging None recorded. Medication Orders prednisone 20 mg tablet 2023 024 [id number], [address], [place], [id number], 4 10:05:22 prednisone 50 mg tablet 2023 024 [facility] #[id number], [address], [place], [id number], 4 09:48:28 Zithromax Z-Bunny 250 mg tablet 2023 024 [facility][id number], [address], [place], [id number], 4 09:48:32 Tessalon Perles 100 mg capsule 2023 024 [id number], [address], [place], [id number], 4 09:48:34 Patient TargetsNo targets recorded. Patient Instructions Encounter Date Encounter Id Patient Instructions Last Modified By Organization Details Last Modified Time 11/26/2023 [id number] cough: care instructions grant Not available 11/26/2023 08:50:45 02/07/2024 [id number] Follow-up with your doctor if no improvement in 3 days. Seek Emergency Medical evaluation for any worsening symptoms. [email or web address] Not available 02/07/2024 10:05:15 Reason for Referral None Reported. Problems Name Problem SNOMED Code Status Onset Date Resolution Date Notes Provider Name and Address Organization Details Recorded Time Asthma 495405485 Active [place] - [facility] 4 08:25:11 Cough 14064296 Active 2023 BELKYS GRAY NP [address] [place], [place], [address], [place] - [facility] 4 08:47:33 Exacerbation of intermittent asthma 112101016 Active 2023 BELKYS GRAY NP [address], [address], [place] - [facility] 4 08:49:41 Problem Notes None recorded. Procedures Surgical History Date Name Laterality Status Provider Name and Address Organization Details Recorded Time 4 Virtual Visit completed Laure Mendoza [place] - [facility] 02/07/2024 09:49:27 4 Virtual Visit completed Yulisa Maravilla [place] - [facility] 11/26/2023 08:41:07 Imaging Results None recorded. Procedure Notes None recorded. Medical Equipment None Reported. Allergies No known drug allergies Medications Name Sig Start Date Stop Date Status Note LastModified by Organization Details LastModified Time azithromyci n 250 mg tablet TAKE 2 TABLETS (500 MG) BY ORAL ROUTE ONCE DAILY FOR 1 DAY THEN 1 TABLET (250 MG) BY ORAL ROUTE ONCE DAILY FOR 4 DAYS 02/06 completed Not Available Not Available Not Available fluconazole 150 mg tablet TAKE 1 TABLET BY MOUTH 1 TIME FOR 1 DOSE. MAY REPEAT IN 3 DAYS. IF NO IMPROVEME NT 11/25 completed Not Available Not Available Not Available Claritin 10 mg tablet Take 1 tablet every day by oral route. 02/06 completed Not Available Not Available Not Available prednisone 20 mg tablet Take 3 tablets every day by oral route in the morning for 7 days, for Asthma. 2023 active Not Available Not Available Not Avai lable fluoxetine 10 mg tablet TAKE 1 TABLET BY MOUTH DAILY 11/25 completed Not Available Not Available Not Available benzonatate 100 mg capsule TAKE 1 CAPSULE BY MOUTH THREE TIMES DAILY FOR 10 DAYS 02/06 completed Not Available Not Available Not Available prednisone 50 mg tablet TAKE 1 TABLET BY MOUTH EVERY DAY FOR 5 DAYS 02/06 completed Not Available Not Available Not Available albuterol 90 mcg-budeson albert 80 mcg/actuati on HFA aerosol inhaler Inhale by inhalatio n route. active Not Available Not Available No t Available Vitals Date Recorded Body height Body mass index (BMI) Body weight Provider Name and Address Organization Details Last Updated DateTime 11/26/2023 157.48 cm 62.2 kg/m2 022694.41 g [place] Mckeon [facility] 11/26/2023 08:26:11 Date Recorded Body height Body mass index (BMI) Body weight Pain severity - 0-10 verbal numeric rating [Score] - Reported Provider Name and Address Organization Details Last Updated DateTime 02/07/2024 157.48 cm 62.2 kg/m2 975284.41 g 0 Laure Mendoza [facility] 02/07/2024 09:47:52 Social History Question Answer Notes LastModified by Organizat ion Details LastModified Time Tobacco Smoking Status Never Smoker Laure dc [facility] 02/07/2024 09:48:44 What Is Your Level Of Alcohol Consumption? None Information not available 11/26/2023 Are You Currently Employed? Yes Information not available 11/26/2023 Which Illicit Or Recreational Drugs Have You Used? William Information not available 11/26/2023 Have You Had A Flu Shot This Season? No Information not available 11/26/2023 If No, Would You Like A Flu Shot Today? No Information not available 11/26/2023 Have You Had Direct Contact, Or Contact During Intimacy, With Monkeypox Rash, Scabs, Or Body Fluids From A Person With Monkeypox? No Information not available 11/26/2023 What Was The Date Of Your Most Recent Tobacco Screening? 11/26/2023 Information not available 11/26/2023 What Is Your Current Pack Years? 10packyears Information not available 11/26/2023 What Is Your Relationship Status? Single Information not available 11/26/2023 How Much Tobacco Do You Smoke? 1 PPW Information not available 11/26/2023 Do You Use Any Illicit Or Recreational Drugs? No [email or web address] Information not available 02/07/2024 Have You Recently Traveled Abroad? No Information no t available 11/26/2023 Are You Currently In School? No Information not available 11/26/2023 Do You Or Have You Ever Used Any Other Forms Of Tobacco Or Nicotine? No Information not available 11/26/2023 Sex: Unknown Functional Status None recorded. Mental Status None recorded. Family History Relationship Description Onset Age of this Age Resolved Age Notes LastModified by Organization Details LastModified Time Father No current problems or disability [email or web address] ivis Not available 11/26/2023 08:30:51 Mother No current problems or disability [email or web address] ivis Not available 11/26/2023 08:30:51 Medical History No medical history recorded. Gynecological History Statement/Question Response Date of LMP 01/28/2024 Is there any chance of ? No LMP Approximate Obstetrics History GPAL:G 0 P 0 0 0 0 Immunizations Vaccine Type Date Status Note Provider Nam e and Address Organization Details Recorded Time Influenza, MDCK, quadrivalent, PF 0 completed [place] Mckeon null, [place] - [facility] 11/26/2023 08:25:24 Influenza, MDCK, quadrivalent, PF 2 completed [place] Mckeon null, [place] - [facility] 11/26/2023 08:25:24 Influenza, MDCK, quadrivalent, PF 0 completed [place] Mckeon null, [place] - [facility] 11/26/2023 08:25:24 MMR 7 completed [place] Linda null, [place] - [facility] 11/26/2023 08:25:24 MMR 3 completed [place] Linda null, [place] - [facility] 11/26/2023 08:25:24 COVID-19, mRNA, LNP-S, PF, 100 mcg/0.5mL dose or 50 mcg/0.25mL dose 2 completed [place] Linda null, [place] - [facility] 11/26/2023 08:25:24 COVID-19, mRNA, LNP-S, PF, 100 mcg/0.5mL dose or 50 mcg/0.25mL dose 2 completed [place] Linda null, [place] - [facility] 11/26/2023 08:25:24 Tdap 9 completed [place] Linda null, [place] - [facility] 11/26/2023 08:25:24 varicella 2 completed [place] Linda null, [place] - [facility] 11/26/2023 08:25:24 varicella 9 completed [place] Linda null, [place] - [facility] 11/26/2023 08:25:24 DTP 3 completed [place] Linda null, [place] - [facility] 11/26/2023 08:25:24 DTP 4 completed [place] Linda null, [place] - [facility] 11/26/2023 08:25:24 DTP 3 completed [place] Linda null, [place] - [facility] 11/26/2023 08:25:24 DTP 7 completed [place] Linda null, [place] - [facility] 11/26/2023 08:25:24 DTP 2 completed [place] Linda null, [place] - [facility] 11/26/2023 08:25:24 OPV 3 completed [place] Linda null, [place] - [facility] 11/26/2023 08:25:24 OPV 4 completed [place] Linda null, [place] - [facility] 11/26/2023 08:25:24 OPV 3 completed [place] Linda null, [place] - [facility] 11/26/2023 08:25:24 OPV 7 completed [place] Linda null, [place] - [facility] 11/26/2023 08:25:24 OPV 2 completed [place] Linda null, [place] - [facility] 11/26/2023 08:25:24 Influenza, split virus, trivalent, preservative 2 completed [place] Linda null, [place] - [facility] 11/26/2023 08:25:24 Influenza, split virus, trivalent, preservative 6 completed [place] Linda null, [place] - [facility] 11/26/2023 08:25:24 Influenza, split virus, trivalent, preservative 5 completed [place] Linda null, [place] - [facility] 11/26/2023 08:25:24 Influenza, split virus, trivalent, preservative 7 completed [place] Linda null, [place] - [facility] 11/26/2023 08:25:24 Influenza, split virus, trivalent, preservative 8 completed [place] Linda null, [place] - [facility] 11/26/2023 08:25:24 Influenza, split virus, trivalent, preservative 1 completed [place] Linda null, [place] - [facility] 11/26/2023 08:25:24 Influenza, split virus, trivalent, preservative 3 completed [place] Linda null, [place] - [facility] 11/26/2023 08:25:24 Influenza, split virus, trivalent, preservative 0 completed [place] Linda null, [place] - [facility] 11/26/2023 08:25:24 Influenza, split virus, trivalent, preservative 4 completed [place] Linda null, [place] - [facility] 11/26/2023 08:25:24 Novel [id number], preservative-free 9 completed [place] Lnida null, [place] - [facility] 11/26/2023 08:25:24 HPV, quadrivalent 8 completed [place] Linda null, [place] - [facility] 11/26/2023 08:25:24 HPV, quadrivalent 7 completed [place] Linda null, [place] - [facility] 11/26/2023 08:25:24 HPV, quadrivalent 7 completed [place] Linda null, [place] - [facility] 11/26/2023 08:25:24 Td (adult), 2 Lf tetanus toxoid, preservative free, adsorbed 4 completed [place] Linda null, [place] - [facility] 11/26/2023 08:25:24 Hep B, adolescent or pediatric 2 completed [place] Linda null, [place] - [facility] 11/26/2023 08:25:24 Hep B, adolescent or pediatric 3 completed [place] Linda null, [place] - [facility] 11/26/2023 08:25:24 Hep B, adolescent or pediatric 2 completed [place] Linda null, [place] - [facility] 11/26/2023 08:25:24 Hib (HbOC) 3 completed [place] Linda null, [place] - [facility] 11/26/2023 08:25:24 Hib (HbOC) 3 completed [place] Linda null, [place] - [facility] 11/26/2023 08:25:24 Hib (HbOC) 2 completed [place] Linda null, [place] - [facility] 11/26/2023 08:25:24 Hib (HbOC) 3 completed [place] Linda null, [place] - [facility] 11/26/2023 08:25:24 meningococcal MCV4P 7 completed [place] Linda null, [place] - [facility] 11/26/2023 08:25:24 Past Encounters Encounter ID Performer Location Encounter Start Date Encounter Closed Date Diagnosis/Indication Diagnosis SNOMED-CT Code Diagnosis ICD10 Code Diagnosis Note [id number] [facility] [address] 10/24/2018 11:21:37 10/24/2018 12:36:[id number] [place] [address] [facility] [address] [place] [address] 07/23/2016 11:05:23 07/23/2016 11:27:00 [id number] [address] [place] [address] 06/04/2022 09:34:07 06/04/2022 13:57:[id number] [place] [address] [address] [address] 09/23/2016 11:14:37 09/23/2016 12:37:[id number] [place] [address] [address] [address] 06/27/2018 18:22:51 06/27/2018 19:24:[id number] [place] [address] [address] 07/14/2016 14:01:34 07/14/2016 14:36:[id number] [place] [address] [address] 11/21/2016 18:15:31 11/21/2016 18:51:17 [id number] BELKYS GRAY NP [address] [place] [address] 11/26/2023 08:19:53 11/26/2023 09:04:47 Cough 58324118 R05.9 Exacerbati on of intermittent asthma 964531718 J45.21 [id number] [place] [address] [facility] [address] [place] [address] 02/07/2024 09:42:05 02/07/2024 10:06:49 Cough 46054868 R05.9 CoughBlack Elderberry Syrup:1-2 tsp 2-3 times a day for 5 days as needed for coughing.S ambucol Black Elderberry Original Syrup (available at [email or web address] )Salena Herbs Black Elderberry Syrup, 5.4-Ounce Bottle (available at [employer] or [employer]) Use a cool mist humidifier in the room that you sleep to add moisture to the air, which should soothe the airways and help loosen any mucus that may be present. Exacerbati on of mild persistent asthma 777485814 J45.31 Continue the albuterol nebulizer 3 times a day for 7 days Health Concerns Section Related Observation LastModified by Organization Detai ls LastModified Time None Recorded Concern Status LastModified by Organization Details LastModified Time None Recorded Advance Directives Directive None Recorded Payers Encounter Date Sequence Insurance Name Policy Number Policy [place] Covered Member ID [place] Member ID Guarantor Name 06/04/2022 1 [facility] [id number] Anaralis M Frias [id number] Anaralis Frias 11/26/2023 1 [facility] [id number] Anaralis M Frias [id number] Anaralis Frias 02/07/2024 1 [facility] [id number] Anaralis M Frias [id number] Anaralis Frias Notes Date Note Type Note Provider Name and Address Organization Details Recorded Time 11/26/2023 text/html Verified the Patient's Name and at the start of visit.Audio/Visual Technology was used and functioning properly.Patient (and Guardian) - verbally understands limitations of a medical exam using A/V Technology - understands alternative treatment would be to visit an on-site medical facility.The patient did confirm they are physically located in the state that I hold a valid medical license. BELKYS GRAY NP [address] [place], [address], [place] - [facility] 11/26/2023 09:00:57 02/07/2024 text/html 33 yo female c/o persistent cough x 3 days after smoking cannabis. Hx of Asthma and is using albuterol inhaler and nebulizer intermittently. She states she usually responds to the addition of prednisone. Tmax = 99.2. No ear pian, headache, sore throat, abdo pian, n/v/rash. JEIMY ANAND MD [address] [facility] [place], [address], [place] - [facility] 02/07/2024 10:11:16 OBGyn Episode No OBEpisode recorded.
--- OUTSIDE RECORDS SUMMARY | 2024-12-07 16:36 | XMS_ITS | Clinical Summary ---
Author Organization [facility] [address] [place] [address] [place] [phone] Phone Care Team Providers Care Long Wall Mining Machine Tender Name Role Phone Vika Bustamante MD Primary Care Provider [phone] Allergies Active Allergy Reactions Criticality Noted Date Comments Cat Hair Standardized Allergenic Extract Other 07/22/2008 Dog Dander Other 07/22/2008 Horse Dander Other 07/22/2008 House Dust Runny nose 07/22/2008 Mold Runny nose 07/22/2008 Peanut 07/10/2024 Other Reaction(s): pt uses an epi pen with this food and all other nuts also per pt Walnuts, Almonds Pollen Extracts Runny nose 07/22/2008 Tree Nuts Other 07/22/2008 Medications albuterol HFA (PROAIR HFA ; PROVENTIL HFA ; VENTOLIN HFA) 90 mcg/actuation inhaler Inhale 2 Puffs into the lungs every 4 hours as needed for Cough, Wheezing or Shortness of Breath. 2 Active EPINEPHrine (EpiPen 2-Bunny) 0.3 mg/0.3 mL injection Inject 0.3 mL into the muscle as needed for Anaphylaxis for up to 30 days. 1 Active ibuprofen (ADVIL,MOTRIN) 800 mg tablet 8 Active loratadine (CLARITIN) 10 mg tablet Take 1 Tablet by mouth daily. 3 Active Lactobacillus acidophilus (PROBIOTIC ACIDOPHILUS ORAL) Take by mouth. Activ e budesonide-formo teroL (SYMBICORT) 80-4.5 mcg/actuation inhaler Inhale 2 puffs by mouth 2 (two) times a day. Rinse mouth with water after use to reduce aftertaste and incidence of candidiasis. Do not swallow. Active furosemide (LASIX) 40 mg tablet Take 1 tablet (40 mg total) by mouth 2 (two) times a day. Active potassium chloride (KLOR-CON) 20 mEq packet 20 mEq 1 (one) time each day. Active FLUoxetine (PROzac) 10 mg capsule Take 1 capsule (10 mg total) by mouth 1 (one) time each day. Active Jardiance 10 mg tablet Take 1 tablet (10 mg total) by mouth 1 (one) time each day. 5 Active losartan (COZAAR) 25 mg tablet Take 1 tablet (25 mg total) by mouth 1 (one) time each day. 5 Active furosemide (Lasix) 80 mg tablet Take 0.5 tablets (40 mg total) by mouth. 4 Active Active Problems Problem Noted Date Diagnosed Date PCOS (polycystic ovarian syndrome) 09/14/2022 Prediabetes 09/14/2022 Osteoarthritis of right knee 09/20/2020 Marijuana smoker, episodic 10/28/2012 Obstructive sleep apnea 08/27/2011 Overview (05/19/2024): [facility] Home sleep test 09/25/2021; weight 350; BMI 64. AHI 37, AI 2; HI 35. 14 obstructive apneas and 254 hypopneas. Average oxygen saturation 81% and oxygen jenni 63%. Obstructive sleep apnea severe with nocturnal hypoxemia; mostly hypopneas with nocturnal hypoxemia based on 2021 home sleep test. History of ETOH abuse 07/15/2011 Asthma 11/30/2005 Encounters Date Type Department Care Team Description 10/06/2024 10:15 AM EST Office Visit Obstetrics and Gynecology [address] [address] Catherine Santos, RIA Vaginal yeast infection (Primary Dx); Vaginal itching; Screen for STD (sexually transmitted disease); High risk heterosexual behavior; Bacterial vaginitis from Last 3 Months Immunizations Name Administration Dates Next Due DTP 03/30/1997, 4,1992,08/14,1992 [id number] (Pentacel) 2mo to less than 5yo 07/09/1993,1992,1992,06/12 H1N1 Inj Preservative Free 07/08/2009 HPV, Quadrivalent 12/06/2007,08/03/2007,05/26/20 07 Hepatitis B Pediatric (Enger ix B; Recombivax HB) to less than 20 yo 04/16/1993,1992,1992 Influenza Quadravalent, MDCK , 0.5ml, preservative free (Flucelvax) 6mo and older 04/22/2022,07/18/2020,08/22/2019 Influenza trivalent, with pr eservative (Fluzone; Afluria) 6mo and older 06/25/2014,06/23/2013,05/11/2012,06/06,06/05/2011,06/24/2010,05/28/2008 ,05/26/2007,05/19/2006,05/20/2005 MMR, measles mumps and rubel la Live (Priorix; M-M-R II) 12mo and older 03/30/1997,07/09/1993 Meningococcal MCV4P 05/26/2007 OPV 03/30/1997, 4,1992,08/14,1992 PPD Test 10/28/2012 Pneumococcal polysaccharide 23 valent (Pneumovax 23) 2yo and older 06/05/2011 Td Tetanus diptheria (Tdvax) 7yo and older 05/05/2004 Tdap Tetanus diptheria acell ular pertussis (Boostrix; Adacel) 7yo and older 07/08/2009 Varicella live (Varivax) 12m o and older 07/08/2009,04/11/2002 Surgical History Surgery Date Site/Laterality Comments TONSILLECTOMY ADENOIDECTOMY, BILATERAL MYRINGOTOMY AND TUBES 01/07/1999 PROCEDURE: PA TONSILLECTOMY & ADENOIDECTOMY <AGE 12 WISDOM TOOTH EXTRACTION PROCEDURE: HISTORICAL WISDOM TEETH EXTRACTION Medical History Medical History Date Comments Unspecified otitis media DX:Unsp ecified otitis media Other atopic dermatitis and related conditions DX:Other atopic dermatitis a nd related conditions Unspecified asthma(493.90) DX:Un specified asthma(493.90) Obesity, unspecified DX:Obesity, unspecified; COMMENT: [employer] WORK[employer] [facility] History of ETOH abuse 07/15/2011 DX:History of ETOH abuse Abscess of left leg 05/19 DX:Abscess o f left leg Sleep apnea, obstructive 08/20 DX:Slee p apnea, obstructive; COMMENT: Rx with NCPAP Family History Medical History Relation Name Comments Other: cerebral palsy Aunt maternal Asthma Brother 1/2 siblings Crohn's disease Asthma Father thyroid issues, drug/EtOH abuse, anxiety/depression Heart attack Maternal Grandfather EtOH ab use; dementia? Hyperlipidemia Maternal Grandmother BCC Asthma Mother psoriasis Breast cancer Neg Hx Relation Name Status Comments Aunt maternal Brother 1/2 siblings Alive Father Alive Maternal Grandfather Alive Maternal Grandmother Alive Mother Alive Paternal Grandfather unknown Alive Paternal Grandmother unknown Alive Social History Tobacco Use Types Packs/Day Years Used Date Smoking Tobacco: Former Cigarettes Q uit: 02/06/2021 Smokeless Tobacco: Never Tobacco Cessation:Counseling Given: Not Answered Alcohol Use Standard Drinks/Week Comments Not Currently 0 (1 standard drink = 0.6 oz pur e alcohol) Comments No Sex and Gender Information Value Date Recorded Sex Assigned at Not on file Legal Sex Female 1:34 PM EST Gender Identity Not on file Sexual Orientation Not on file Obstetrics History Para Term AB IAB SAB Ectopic Multiple Livin g Live Births 0 0 0 0 0 0 0 0 0 0 0 Last Filed Vital Signs Vital Sign Reading Time Taken Comments Blood Pressure 134/76 10/06/2024 10:37 AM EST Pulse 86 10/06/2024 10:37 AM EST Temperature - - Respiratory Rate - - Oxygen Saturation - - Inhaled Oxygen Concentration - - Weight 166 kg (367 lb) 10/06/2024 10:37 AM EST Height 157.5 cm (5' 2 ) 10/06/2024 10:37 AM EST Body Mass Index 67.13 10/06/2024 10:37 AM EST Plan of Treatment Health Maintenance Due Date Last Done Comments Hepatitis A Vaccines (1 of 2 - Risk 2-dose series) 2011 Pneumococcal Vaccine: Pediatrics (0 to 5 Years) and At-Risk Patients (6 to 64 Years) (2 of 2 - PCV) 06/05/2012 06/05/2011 DTaP,Tdap,and Td Vaccines (8 - Td or Tdap) 07/08/2019 07/08/2009, 05/05/2004, 03/30/1997, Additional history exists Depression Screening 07/18/2022 Social Influencers of Health Screening 07/18/2022 COVID-19 Vaccine ( season) 2024 09/11/2021, 08/14/2021 Influenza Vaccine (Season Ended) 2025 04/22/2022, 07/18/2020, 08/22/2019, Additional history exists Cholesterol Screening (Lipid Panel) 09/15/2027 09/15/2022 Cervical Cancer Screening: HPV 09/01/2028 09/01/2023 Hepatitis B Vaccines Completed 04/16/1993, 1992, 1992 HIB Vaccines Completed 07/09/1993, 08/1992, 1992, Additional history exists IPV Vaccines Completed 03/30/1997, 04/1994, 07/09/1993, Additional history exists MMR Vaccines Completed 03/30/1997, 07/09/1993 Meningococcal ACWY Vaccine Aged Out 05/26/2007 N o longer eligible based on patient's age to complete this topic HPV Vaccines Completed 12/06/2007, 07/10, 05/26/2007 Varicella Vaccines Completed 07/08/2009, 04/11/2002 HIV Screening Completed 10/06/2024, 09/2023, 09/01/2023 Hepatitis C Screening Completed 10/06/2024 , 07/10/2024, 09/01/2023 Meningococcal B Vaccine Aged Out No l onger eligible based on patient's age to complete this topic RSV Immunization Patients Under 20 months Aged Out No longer eligible based on patient's age to complete this topic Procedures Procedure Name Priority Date/Time Associated Diagnosis Comments HIV 1, 2 ANTIBODY, P24 ANTIGEN WITH REFLEX TO DIFFERENTIATION Routine 10/06/2024 11:17 AM EST Screen for STD (sexually transmitted disease) HEPATITIS B SURFACE ANTIGEN WITH CONFIRMATION Routine 10/06/2024 11:17 AM EST Screen for STD (sexually transmitted disease) TREPONEMA PALLIDUM ANTIBODY WITH REFLEX TO RPR AND PARTICLE AGGLUTINATION Routine 10/06/2024 11:17 AM EST Screen for STD (sexually transmitted disease) HEPATITIS C ANTIBODY Routine 10/06/2024 11:17 AM EST Screen for STD (sexually transmitted disease) TRICHOMONAS VAGINALIS ANTIGEN Routine 10/06/2024 11:01 AM EST Vaginal itching WET PREP, GENITAL Routine 10/06/2024 11: 01 AM EST Vaginal itching CHLAMYDIA TRACHOMATIS AND NEISSERIA GONORRHOEAE PCR Routine 10/06/2024 11:01 AM EST Screen for STD (sexually transmitted disease) HM HPV Routine 09/01/2023 LIPID PANEL Routine 09/15/2022 from Last 3 Months or Most Recently Relevant to Health Maintenance Results * Hepatitis C antibody (10/06/2024 11:17 AM EST) Pathologist [facility] Hepatitis C Antibody Negative Negative LAB CHEMISTRY METHOD 10/06/2024 5:56 PM EST [facility] Blood Venous blood specimen / Unknown Venipuncture / Unknown 10/06/2024 11:17 AM EST 10/06/2024 11:17 AM EST us Catherine Santos CNM LAB BLOOD ORDERABLES Final Res ult [facility] [address] [place] [address], [place] [phone] * HIV 1,2 antibody, p24 antigen with reflex to differentiation (10/06/2024 11:17 AM EST) Pathologist [facility] HIV Combo AB/AG Negative Negative LAB CHEMISTRY METHOD 10/06/2024 5:57 PM EST [facility] Blood Venous blood specimen / Unknown Venipuncture / Unknown 10/06/2024 11:17 AM EST 10/06/2024 11:17 AM EST [facility] - 10/06/2024 5:57 PM EST This assay is a 4th generation assay allowing for earlier detection of HIV infection by detecting the presence of the HIV-1 p24 antigen as well as the traditional antibodies to HIV type 1 (including group O) and type 2. ??Use of a 4th generation assay is the current CDC recommendation for HIV screening. Catherine Santos [facility] LAB BLOOD ORDERABLES Final Res ult Performing Organization Address [facility] Co de Phone Number [facility] [address] [place] [address], [place] [phone] * Hepatitis B surface antigen with reflex to confirmation (10/06/2024 11:17 AM EST) Hepatitis B Surface Ag Negative Negative LAB CHEMISTRY METHOD 10/06/2024 5:27 PM EST [facility] Blood Venous blood specimen / Unknown Venipuncture / Unknown 10/06/2024 11:17 AM EST 10/06/2024 11:17 AM EST Narrative [facility] - 10/06/2024 5:27 PM EST Over the counter supplements containing high doses of biotin may interfere with this assay. ??If interference is suspected, patients shoud be retested after refraining from biotin supplements for 72 hours. [facility] LAB BLOOD ORDERABLES Final Res ult Performing Organization Address City/[facility]/ZIP Co de Phone Number [facility] [address] [place] [address], [place] [phone] * Treponema pallidum antibody with reflex to RPR and particle agglutination (10/06/2024 11:17 AM EST) T. Pallidum Antibodies Negative Negative LAB CHEMISTRY METHOD 10/06/2024 6:38 PM EST [facility] Blood Venous blood specimen / Unknown Venipuncture / Unknown 10/06/2024 11:17 AM EST 10/06/2024 11:17 AM EST us Catherine Santos CNM LAB BLOOD ORDERABLES Final Res ult [facility] [address] [place] [address], [place] [phone] * Trichomonas vaginalis antigen (10/06/2024 11:01 AM EST) Trichomonas vaginalis Negative Negative 10/06/2024 6:51 PM EST [facility] Swab Vaginal structure / Unknown Non-blood Collection / Unknown 10/06/2024 11:01 AM EST 10/06/2024 11:01 AM EST us Catherine Santos CNM LAB MICROBIOLOGY - GENERAL ORD ERABLES Final Result Performing Organization Address City/[facility]/ZIP Co de Phone Number [facility] [address] [place] [address], [place] [phone] * Chlamydia trachomatis and Neisseria gonorrhoeae molecular study (10/06/2024 11:01 AM EST) Neisseria gonorrhoeae PCR Negative Negative LAB MOLECULAR DIAGNOSTICS METHOD 10/07/2024 9:19 AM EST [facility] Chlamydia trachomatis PCR Negative Negative LAB MOLECULAR DIAGNOSTICS METHOD 10/07/2024 9:19 AM EST [facility] Swab Cervix uteri structure / Unknown Non-blood Collection / Unknown 10/06/2024 11:01 AM EST 10/06/2024 11:01 AM EST us Catherine Santos CNM LAB MICROBIOLOGY - GENERAL ORD ERABLES Final Result [facility] [address] [place] [address], * (ABNORMAL) Wet prep, genital (10/06/2024 11:01 AM EST) [facility] Clue Cells, Wet Prep Positive(A) Negative 10/06/2024 6:42 PM EST [facility] Yeast, Wet Prep Positive(A) Negative 10/06/2024 6:42 PM EST [facility] Trichomonas, Wet Prep Indeterminate Negative 10/06/2024 6:42 PM EST [facility] Comment:Refer to Trichomonas antigen. Swab Vaginal structure / Unknown Non-blood Collection / Unknown 10/06/2024 11:01 AM EST 10/06/2024 11:01 AM EST Catherine Santos CNM LAB MICROBIOLOGY - GENERAL ORD ERABLES Final Result [facility] [address] [place] [address], * Cervical Cancer Screening: HPV (09/01/2023) [facility] Cervical Cancer Screening: HPV Negative, Abstracted Historical Provider HEALTH MAINTENANCE Final Result * (ABNORMAL) Lipid panel (09/15/2022) [facility] LDL/HDL Ratio 5(A) 0 - 4 Triglycerides 101 0 - 150 mg/dL Cholesterol 179 0 - 200 mg/dL HDL 40 >=40 mg/dL LDL Cholesterol 119(A) 0 - 100 mg/dL Blood Venous blood specimen / Unknown Historical Provider LAB BLOOD ORDERABLES Giselle l Result from Last 3 Months or Most Recently Relevant to Health Maintenance [facility] [id number] Care Teams Long Wall Mining Machine Tender Relationship Specialty Start Date End Date Vika Bustamante MD [address] [place] [address] [address] [place] [address] PCP - General Internal Medicine 10/05/24
== END 2024-12-07 15:09 | disposition home or self-care (01) ==
LOC: HO.HMCFM 14:33
PROVIDERS: PCP Physician Assistant Medical; Visit Provider Physician Assistant Medical
DX: Z00.00 Encounter for general adult medical examination without abnormal findings (principal); I42.9 Cardiomyopathy, unspecified; E66.01 Morbid (severe) obesity due to excess calories; Z68.44 Body mass index [BMI] 60.0-69.9, adult; G47.33 Obstructive sleep apnea (adult) (pediatric); J45.30 Mild persistent asthma, uncomplicated; F33.9 Major depressive disorder, recurrent, unspecified

== ENCOUNTER → 2024-12-07 14:32 | Outpatient (BNVA) | payer OTHER, SELFPAY | PROVIDERS: PCP Physician Assistant Medical; Visit Provider Physician Assistant Medical | DX: Z00.00 Encounter for general adult medical examination without abnormal findings (principal); G47.33 Obstructive sleep apnea (adult) (pediatric); E28.2 Polycystic ovarian syndrome; E66.01 Morbid (severe) obesity due to excess calories; J45.30 Mild persistent asthma, uncomplicated; I42.9 Cardiomyopathy, unspecified; F33.9 Major depressive disorder, recurrent, unspecified; Z68.44 Body mass index [BMI] 60.0-69.9, adult | CPT/HCPCS: 96127 ==

== ENCOUNTER 2024-12-12 08:44 | Outpatient (REF) | payer OTHER, SELFPAY ==
--- OUTSIDE RECORDS SUMMARY | 2024-12-12 09:12 | XMS_ITS | Encounter Summary ---
Author Organization [facility] Address [address] [place] [address] Care Team Providers Care Delinquency Counselor Name Role Phone Cris Hernández MD Primary Care Provider [phone] [facility], Pcp Primary Care Provider Unavailabl e Encounter Details Date Type Department Care Team Description 03/09/2023 Pt. Non Urgent Medical Question Adult Medicine [address] [address] Cris Hernández MD [address] [place] [id number] Social History Tobacco Use Types Packs/Day Years Used Date Smoking Tobacco: Some Days Cigarettes Last attempted to quit: 02/06/2021 Smokeless Tobacco: Never Comments:Started age 23; max 1/4 PPD Alcohol Use Standard Drinks/Week Comments Yes 0 (1 standard drink = 0.6 oz pur e alcohol) 1 servings every other week Education Answer Date Recorded What is the highest level of school you have completed or the highest degree you have received? Master's degree (e.g., MARITZA, , [employer], Arthur, MANAGER LAN, DEE DEE) 09/14/2022 Sex Assigned at Date Recorded Female 01/12/2022 9:59 PM E DT Job Start Date Occupation Industry Not on file Not on file Not on file documented as of this encounter Plan of Treatment Not on file documented as of this encounter Visit Diagnoses Not on filedocumented in this encounter Additional Health Concerns Infection Onset Date Last Indicated Resolved Time COVID-19 05/05/2022 05/05/2022 documented as of this encounter Care Teams Delinquency Counselor Relationship Specialty Start Date End Date Cris Hernández MD [address] [place] [address] PCP - General Internal Medicine 09/14/22 05/21/24 [facility], [address] [address] PCP - General Internal Medicine 05/22/24 documented as of this encounter
--- OUTSIDE RECORDS SUMMARY | 2024-12-12 09:12 | XMS_ITS | Encounter Summary ---
Author Organization [facility] Address [address] [place] [address] Care Team Providers Care Adjunct Professor Of [employer].[place]. History Name Role Phone Cierra Lizarraga MD Primary Care Provider [phone] Cris Hernández MD Primary Care Provider [phone] [facility] Primary Care Provider Unavailabl e Reason for Visit * Reason Onset Date Comments DME Request 12/03/2021 Encounter Details Date Type Department Care Team Description 12/03/2021 Telephone Pulmonology - [place] [address] [facility] [address] [place] [address] Vida Harvey, [facility] [address] [place] [address] DME Request Social History Tobacco Use Types Packs/Day Years Used Date Smoking Tobacco: Former Cigarettes 0.3 7 Q uit: 02/06/2021 Smokeless Tobacco: Never Alcohol Use Standard Drinks/Week Comments No 0 (1 standard drink = 0.6 oz pur e alcohol) Sex Assigned at Date Recorded Female 01/12/2022 9:59 PM E DT Job Start Date Occupation Industry Not on file Not on file Not on file COVID-19 Exposure Response Date Recorded In the last 10 days, have yo u been in contact with someone who was confirmed or suspected to have Coronavirus/COVID-19? No / Unsure 11/19/2021 4:08 PM EDT documented as of this encounter Miscellaneous Notes * Telephone Encounter - Marifer Walter - 12/03/2021 10:49 AM EDT Done faxed order to [employer] for replacement machine documented in this encounter Plan of Treatment Not on file documented as of this encounter Visit Diagnoses Not on filedocumented in this encounter Additional Health Concerns Infection Onset Date Last Indicated Resolved Time COVID-19 05/05/2022 05/05/2022 documented as of this encounter Care Teams Adjunct Professor Of U.S. History Relationship Specialty Start Date End Date Cierra Lizarraga MD [address] [place] [address] PCP - General Internal Medicine 02/24/21 09/13/22 Cris Hernández MD [address] [place] [address] PCP - General Internal Medicine 09/14/22 05/21/24 [facility], [address] [address] PCP - General Internal Medicine 05/22/24 documented as of this encounter
--- OUTSIDE RECORDS SUMMARY | 2024-12-12 09:12 | XMS_ITS | Encounter Summary ---
Author Organization [facility] Address [address] [place] [address] Care Team Providers Care Boss Miner Name Role Phone Vika Restrepo MD Primary Care Provider Thang allen [facility], Pcp Primary Care Provider UnavailCierra Wilde MD Primary Care Provider [phone] Cris Hernández MD Primary Care Provider [phone] [facility], Pcp Primary Care Provider Unavailtrista e Encounter Details Date Type Department Care Team Description 10/26/2018 Pt. Non Urgent Medic al Question Medicine/Pediatrics - [address] [phone] Dena Robles PA-C Social History Tobacco Use Types Packs/Day Years Used Date Smoking Tobacco: Some Days Cigarettes 0.1 1 Last attempted to quit: 08/09/2015 Smokeless Tobacco: Never Comments:Down to 1 every oth er week. Alcohol Use Standard Drinks/Week Comments Yes 0 (1 standard drink = 0.6 oz pur e alcohol) once a month Sex Assigned at Date Recorded Female 01/12/2022 9:59 PM E DT Job Start Date Occupation Industry Not on file Not on file Not on file documented as of this encounter Progress Notes * Hailey Granados L.P.N. - 10/27/2018 9:08 AM EDTFrom: Miriam Cervantestron To: Dena Robles PA-C Sent: 10/26/2018 11:32 PM EDT Subject: Right knee injury Hello, I have sustained an injury to my right knee on Wednesday10/21/18z This is my 3rd injury on the same knee and have not had proper healing the other two times. I was seen at urgent care on Wednesday10/24/18 and was told I need to follow up with an orthopedic doctor. Do I need a referral or do I just call them and set up an appointment? documented in this encounter Plan of Treatment Not on file documented as of this encounter Visit Diagnoses Not on filedocumented in this encounter Additional Health Concerns Infection Onset Date Last Indicated Resolved Time COVID-05/05/2022 05/05/2022 documented as of this encounter Care Teams Boss Miner Relationship Specialty Start Date End Date Vika Restrepo MD PCP - General Internal Medicine 08/28/15 02/06/21 [facility], Pcp PCP - General Internal Medicine 02/07/21 02/23/21 Cierra Lizarraga MD [address] [place] [id number] PCP - General Internal Medicine 02/24/21 09/13/22 Cris Hernández MD [address] [place] [address] PCP - General Internal Medicine 09/14/22 05/21/24 [facility], Pcp PCP - General Internal Medicine 05/22/24 documented as of this encounter
--- OUTSIDE RECORDS SUMMARY | 2024-12-12 09:12 | XMS_ITS | Clinical Summary ---
Author Organization [facility] Address [address] [place] [address] Care Team Providers Care Fish Machine Feeder Name Role Phone Community, Pcp Primary Care Provider Unavailabl e Allergies Active Allergy Reactions Severity Noted Date Comments Cat Hair Extract Diagnosed by allergy testing 1 09/22/2007 Dog Dander Diagnosed by allergy testing 008 Dust Runny Nose/Rhinitis 07/22/2008 Horses Diagnosed by allergy testing 008 Mold Runny Nose/Rhinitis 07/22/2008 Nuts Diagnosed by allergy testing 008 Pollen Runny Nose/Rhinitis 07/22/2008 Medications Medication Sig Dispensed Refills Start Date End Date Status ibuprofen (ADVIL,MOTRIN) 800 MG tablet Take 1 Tab by mouth every 8 hours as needed for Pain. 270 Tab 0 09/06/2017 Active epinephrine (EpiPen 2-Bunny) 0.3 MG/0.3ML injection Inject 0.3 mL into the muscle as needed for Anaphylaxis for up to 30 days. 2 Each 0 12/16/2020 Active ALBUTEROL SULFATE (ProAir HFA) 108 (90 Base) MCG/ACT Aero Soln Inhale 2 Puffs into the lungs every 4 hours as needed for Cough, Wheezing or Shortness of Breath. 8.5 g 0 04/21/2022 Active loratadine (CLARITIN) 10 MG tablet Take 1 Tablet by mouth daily. 90 Tablet 1 11/26/2022 Active fluoxetine (PROZAC) 20 MG capsule Take 1 Capsule by mouth daily for 90 days. 30 Capsule 2 03/09/2023 Active Lactobacillus (PROBIOTIC ACIDOPHILUS OR) Take by mouth. 0 Activ e Active Problems Problem Noted Date Prediabetes 09/14/2022 PCOS (polycystic ovarian syndrome) 09/14 Osteoarthritis of right knee 09/20/2020 Family history of melanoma 12/01/2017 Marijuana smoker, episodic 10/28/2012 Obstructive sleep apnea severe AHI 37 wi th nocturnal hypoxemia 08/27/2011 Overview: [facility] Home sleep test 09/25/2021; weight 350; BMI 64. AHI 37, AI 2; HI 35. 14 obstructive apneas and 254 hypopneas. Average oxygen saturation 81% and oxygen jenni 63%. Obstructive sleep apnea severe with nocturnal hypoxemia; mostly hypopneas with nocturnal hypoxemia based on 2021 home sleep test. Morbid obesity with BMI of 60.0-69.9, ad ult 07/15/2011 Overview: Following with [facility] History of ETOH abuse 07/15/2011 Asthma 11/30/2005 Resolved Problems Problem Noted Date Resolved Date Acanthosis nigricans 12/20/2009 12/02/2021 Dysmenorrhea in the adolescent 07/08/2009 0 12/02/2021 Obesity, unspecified 05/19/2006 07/15/2011 Routine infant or child health check 11/30/2005 12/02/2021 Immunizations Name Administration Dates Next Due COVID-19 (Moderna) 09/11/2021,08/14/2021 DTP 03/30/1997, 4,1992,08/14,1992 Flu (Generic) 06/05/2011 HIB 07/09/1993, 3,1992,06/12 HPV (Gardasil) 12/06/2007,08/03/2007,05/26/2007 Hepatitis B-3 Dose (<19yrs) 04/16/1993, 2,1992 Influenza (> 6 Months) 06/25/2014,2012,05/11/2012,06/06,06/24/2010,05/28/2008,05/26/2007 ,05/19/2006,05/20/2005 Influenza H1N1 Pandemic Flu Vaccine 07/08/2009 Influenza Vaccine-preservati ve Free-quadrivalent 4 Years 04/22/2022,07/18/2020,08/22/2019 MMR (Bjqqpbg-Blzkb-Hfbozfw) 03/30/1997, 3 Meningococcal (Menactra) 05/26/2007 PPD-RBMG 10/28/2012 Pneumoccoccal(Adult) Polysac charide PPSV23 06/05/2011 Polio (OPV) 03/30/1997, 4,1992,08/14,1992 TD (STATE SUPPLIED FOR ADULT S AND CHILDREN) 05/05/2004 Tdap 07/08/2009 Varicella 07/08/2009,04/11/2002 Family History Medical History Relation Name Comments cerebral palsy Aunt maternal Asthma Brother 1/2 siblings Crohn's disease Asthma Father thyroid issues, drug/EtOH abuse, anxiety/depression [place] Maternal Grandfather EtOH ab use; dementia? Hypercholesterolemia Maternal Grandmother BCC Asthma Mother psoriasis CA Breast Negative Hx Relation Name Status Comments Aunt maternal Brother 1/2 siblings Alive Father Alive Maternal Grandfather Alive Maternal Grandmother Alive Mother Alive Paternal Grandfather unknown Alive Paternal Grandmother unknown Alive Social History Tobacco Use Types Packs/Day Years Used Date Smoking Tobacco: Every Day Cigarettes Last attempted to quit: 02/06/2021 Smokeless Tobacco: Never Comments:Started age 23; max 1/4 PPD Alcohol Use Standard Drinks/Week Comments Yes 0 (1 standard drink = 0.6 oz pur e alcohol) 1 servings every other week Education Answer Date Recorded What is the highest level of school you have completed or the highest degree you have received? 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 DEE) 09/14/2022 Sex Assigned at Date Recorded Female 01/12/2022 9:59 PM E DT Job Start Date Occupation Industry Not on file Not on file Not on file Last Filed Vital Signs Vital Sign Reading Time Taken Comments Blood Pressure 90/60 11/12/2022 9:31 AM EDT Pulse 100 11/12/2022 9:31 AM EDT Temperature 36.4 ??C (97.6 ??F) 11/12/2022 9:31 AM ED T Respiratory Rate 14 11/12/2022 9:31 AM EDT Oxygen Saturation 98% 03/25/2021 3:19 PM EDT Inhaled Oxygen Concentration - - Weight 159.2 kg (351 lb) 09/01/2023 9:00 AM EST Height 157.5 cm (5' 2 ) 11/12/2022 9:31 AM EDT Body Mass Index 64.2 11/12/2022 9:31 AM EDT Plan of Treatment Health Maintenance Due Date Last Done Comments DTAP/TDAP/TD (8 - Td or Tdap) 02/07/2024 (External Completion of Vaccination per patient), 07/08/2009, 05/05/2004, Additional history exists Covid-19 Vaccine (2022- 4 season) 2024 09/11/2021, 08/14/2021 BMI CHECK/ADVISE 08/09/2024 09/01/2023, 01/2023, 09/14/2022, Additional history exists INFLUENZA (Season Ended) 2025 022, 07/18/2020, 08/22/2019, Additional history exists CERVICAL CANCER SCREENING 09/01/20262023, 03/05/2021, 06/09/2018, Additional history exists BASELINE HEALTH EXAM 18-39 09/15/202709/15, 09/14/2022, 03/25/2021, Additional history exists CHOLESTEROL SCREENING 09/15/2027 09/15/2022 , 03/25/2021, 08/22/2019, Additional history exists PNEUMOCOCCAL VACCINE FOR HIG H RISK PATIENTS (#2) 2057 06/05/2011 Additional Health Concerns Infection Onset Date Last Indicated COVID-19 05/05/2022 05/05/2022 Care Teams Fish Machine Feeder Relationship Specialty Start Date End Date Community, Pcp PCP - General Internal Medicine 05/22/24
--- OUTSIDE RECORDS SUMMARY | 2024-12-12 09:12 | XMS_ITS | Encounter Summary ---
Author Organization [facility] Address [address] [place] [address] Care Team Providers Care Flight Radio Operator Name Role Phone Cierra Lizarraga MD Primary Care Provider [phone] Cris Hernández MD Primary Care Provider [phone] [facility] Primary Care Provider Unavailabl e Encounter Details Date Type Department Care Team Description 03/25/2021 Cherry Pitter Report Medical Records [address] [place] [address] Valarie Hsu MD [address] [facility] Diabetes [place] [address] Social History Tobacco Use Types Packs/Day Years [...] Exposure Response Date Recorded In the last month, have you been in contact with someone who was confirmed or suspected to have Coronavirus / COVID-19? No / Unsure 03/25/2021 3:04 PM EDT documented as of this encounter Plan of Treatment Not on file documented as of this encounter Visit Diagnoses Not on filedocumented in this encounter Additional Health Concerns Infection Onset Date Last Indicated Resolved Time COVID-19 05/05/2022 05/05/2022 documented as of this encounter Care Teams Flight Radio Operator Relationship Specialty Start Date End Date Cierra Lizarraga MD [address] [place] [address] PCP - General Internal Medicine 02/24/21 09/13/22 Cris Hernández MD [address] [place] [address] PCP - General Internal Medicine 09/14/22 05/21/24 [facility], [address] [address] PCP - General Internal Medicine 05/22/24 documented as of this encounter
--- OUTSIDE RECORDS SUMMARY | 2024-12-12 09:12 | XMS_ITS | Encounter Summary ---
Author Organization [facility] Address [address] [place] [address] Care Team Providers Care Automotive Exhaust Emissions Technician Name Role Phone Vika Restrepo MD Primary Care Provider Unavailheaven allen [facility], Pcp Primary Care Provider Unavailtrista e Cierra Lizarraga MD Primary Care Provider [phone] Cris Hernández MD Primary Care Provider [facility], Pcp Primary Care Provider Unavailabl e Reason for Visit * Reason Onset Date Comments Appointment-Internal Referral 09/13/2019 Ge neral Surgery Encounter Details Date Type Department Care Team Description 09/13/2019 Telephone General Surgery - [place] [address] [facility] [address] [place] [address] Mayank Maloney PA-C Appointment-Internal Referral (General Surgery) Social History Tobacco Use Types Packs/Day Years Used Date Smoking Tobacco: Some Days Cigarettes 0.1 1 Last attempted to quit: 08/09/2015 Smokeless Tobacco: Never Comments:Down to 1 every oth er week. Alcohol Use Standard Drinks/Week Comments No 0 (1 standard drink = 0.6 oz pur e alcohol) Sex Assigned at Date Recorded Female 01/12/2022 9:59 PM E DT Job Start Date Occupation Industry Not on file Not on file Not on file documented as of this encounter Miscellaneous Notes * Telephone Encounter - Mayank Maloney PA-C - 09/13/2019 4:34 PM EST Thanks for FYI * Telephone Encounter - Hailey Castrejon - 09/13/2019 3:21 PM EST Miriam Talley has not responded to the telephone calls that were made on 08/23/19 and 08/25/19 as well as a letter that was sent on 08/2219 to schedule a General Surgery Consult for a Morbid Obesity ; therefore we are removing the patient from our open internal referrals report at this time. If you should hear from the patient please let them know that we did attempt to reach them. ?? Thank you, Hailey Internal Central Scheduling documented in this encounter Plan of Treatment Not on file documented as of this encounter Visit Diagnoses Not on filedocumented in this encounter Additional Health Concerns Infection Onset Date Last Indicated Resolved Time COVID-19 05/05/2022 05/05/2022 documented as of this encounter Care Teams Automotive Exhaust Emissions Technician Relationship Specialty Start Date End Date Vika Restrepo MD PCP - General Internal Medicine 08/28/15 02/06/21 [facility], Pcp PCP - General Internal Medicine 02/07/21 02/23/21 Cierra Lizarraga MD [address] [place] [address] PCP - General Internal Medicine 02/24/21 09/13/22 Cris Hernández MD [address] [place] [address] PCP - General Internal Medicine 09/14/22 05/21/24 Community, Pcp PCP - General Internal Medicine 05/22/24 documented as of this encounter
--- OUTSIDE RECORDS SUMMARY | 2024-12-12 09:12 | XMS_ITS | Encounter Summary ---
Author Organization [facility] Address [address] [place] [address] Care Team Providers Care Detective Bowling Alley Name Role Phone Aleksandar So MD Primary Care Provider Un available Jaya Burnham MD Primary Care Provider Unavail able Vika Restrepo MD Primary Care Provider Unavaila alejandro [facility], Pcp Primary Care Provider Unavailabl e Cierra Lizarraga MD Primary Care Provider [phone] Cris Hernández MD Primary Care Provider [phone] [facility], [facility] Primary Care Provider Unavailtrista odonnell Encounter Details Date Type Department Care Team Description 01/26/2005 Orders Only Medicine/Pediatrics - [address] [address] Aleksandar So MD ACUTE PHARYNGITIS (Primary Dx) Social History Tobacco Use Types Packs/Day Years Used Date Smoking Tobacco: Never Assessed Sex Assigned at Date Recorded Female 01/12/2022 9:59 PM E DT Job Start Date Occupation Industry Not on file Not on file Not on file documented as of this encounter Plan of Treatment Not on file documented as of this encounter Procedures Procedure Name Priority Date/Time Associated Diagnosis Comments GROUP A STREP CULTURE-[place] Routine 01/26/2005 11:00 AM EDT Acute Pharyngitis documented in this encounter Results * GROUP A STREP CULTURE-[place] (01/26/2005 11:00 AM EDT) STREP SCREEN THROAT NEGATIVE FOR BETA HEMOLYTIC STREPTOCOCCUS GROUP A Testing Performed at [facility], [address] [place], [place] [address]S [facility] 01/26/2005 11:0 0 AM EDT 01/26/2005 11:42 AM EDT Aleksandar So MD LAB [facility] documented in this encounter Visit Diagnoses Diagnosis Acute pharyngitis- Primary documented in this encounter Additional Health Concerns Infection Onset Date Last Indicated Resolved Time COVID-19 05/05/2022 05/05/2022 documented as of this encounter Care Teams Detective Bowling Alley Relationship Specialty Start Date End Date Aleksandar So MD PCP - General 09/04/1997 10/18/12 Jaya Burnham MD PCP - General Internal Medicine 10/19/12 08/27/15 Vika Restrepo MD PCP - General Internal Medicine 08/28/15 02/06/21 [facility], [facility] PCP - General Internal Medicine 02/07/21 02/23/21 Cierra Lizarraga MD [address] [place] [address] PCP - General Internal Medicine 02/24/21 09/13/22 Cris Hernández MD [address] [place] [address] PCP - General Internal Medicine 09/14/22 05/21/24 [facility], Pcp PCP - General Internal Medicine 05/22/24 documented as of this encounter
--- OUTSIDE RECORDS SUMMARY | 2024-12-12 09:12 | XMS_ITS | Data Portability ---
Author Organization [facility] [address] Address [address] [place] [address] Care Team Providers Care Meal Room Hand Name Role Phone NATALIE ENNIS Thoracic Medicine Physician Assessment No assessment recorded. Plan of Treatment Reminders Order Date Submit Date Provider Last Modified By Organization Details Last Modified Time Details Appointments None recorded. Lab None recorded. Referral None recorded. Procedures None recorded. Surgeries None recorded. Imaging None recorded. Medication Orders prednisone 20 mg tablet 2023 [address] [id number], [address] [place] [address], [place], [id number], 4 10:05:22 prednisone 50 mg tablet [address] [id number], [address] [place] [address], [place], [id number], 4 09:48:28 Zithromax Z-Bunny 250 mg tablet 2023 024 [id number], [address] [place] [address], [place], [id number], 4 09:48:32 Tessalon Perles 100 mg capsule 2023 024 [id number], [address] [address], [place], [id number], 4 09:48:34 Patient TargetsNo targets recorded. Patient Instructions Encounter Date Encounter Id Patient Instructions Last Modified By Organization Details Last Modified Time 11/26/2023 [id number] cough: care instructions grant Not available 11/26/2023 08:50:45 02/07/2024 [id number] Follow-up with your doctor if no improvement in 3 days. Seek Emergency Medical evaluation for any worsening symptoms. [email or web address] Not available 02/07/2024 10:05:15 Reason for Referral None Reported. Problems Name Problem SNOMED Code Status Onset Date Resolution Date Notes Provider Name and Address Organization Details Recorded Time Asthma 205447596 Active [place] dc [place] - [facility] 4 08:25:11 Cough 34178044 Active 2023 BELKYS GRAY NP [address] [place], [place], [address], [place] - [facility] 4 08:47:33 Exacerbation of intermittent asthma 739643908 Active 2023 BELKYS GRAY NP [address] [place], [address], [place] - [facility] 4 08:49:41 Problem Notes None recorded. Procedures Surgical History Date Name Laterality Status Provider Name and Address Organization Details Recorded Time 4 Virtual Visit completed Laure Mendoza [place] - [facility] 02/07/2024 09:49:27 4 Virtual Visit completed Yulisa Maravilla [place] - [facility] 11/26/2023 08:41:07 Imaging Results [...] Updated DateTime 11/26/2023 157.48 cm 62.2 kg/m2 959599.41 g Paris Mckeon [employer] 11/26/2023 08:26:11 Date Recorded Body height Body mass index (BMI) Body weight Pain severity - 0-10 verbal numeric rating [Score] - Reported Provider Name and Address Organization Details Last Updated DateTime 02/07/2024 157.48 cm 62.2 kg/m2 669122.41 g 0 Laure Mendoza [employer] 02/07/2024 09:47:52 Social History Question Answer Notes LastModified by Organizat ion Details LastModified Time Tobacco Smoking Status Never Smoker Laure dc [facility] 02/07/2024 09:48:44 What Is Your Level [...] PA - [facility] 11/26/2023 08:25:24 Novel [id number], preservative-free 9 completed Paris Linda null, PA - [...] SNOMED-CT Code Diagnosis ICD10 Code Diagnosis Note [id number] [facility] [address] [facility] [address] [address] 10/24/2018 11:21:37 10/24/2018 12:36:[id number] [place] [address] [facility] [address] [place] [address] 07/23/2016 11:05:23 07/23/2016 11:27:00 [id number] [address] [place] [address] 06/04/2022 09:34:07 06/04/2022 13:57:[id number] [place] [address] [address] [address] 09/23/2016 11:14:37 09/23/2016 12:37:[id number] [place] [address] [address] 06/27/2018 18:22:51 06/27/2018 19:24:[id number] [place] [address] [address] 07/14/2016 14:01:34 07/14/2016 14:36:[id number] [place] [address] [address] 11/21/2016 18:15:31 11/21/2016 18:51:17 [id number] BELKYS GRAY NP [address] [place] [address] 11/26/2023 08:19:53 11/26/2023 09:04:47 Cough 78679058 R05.9 Exacerbati on of intermittent asthma 106670491 J45.21 [id number] [place]ND [place] [address] [address] [place] [address] 02/07/2024 09:42:05 02/07/2024 10:06:49 Cough 52060097 R05.9 CoughBlack Elderberry Syrup:1-2 tsp 2-3 times a day for 5 days as needed for coughing.S ambucol Black Elderberry Original Syrup (available at [employer] )Salena Herbs Black Elderberry Syrup, 5.4-Ounce Bottle (available at [employer] or [employer]) Use a cool mist humidifier in the room that you sleep to add moisture to the air, which should soothe the airways and help loosen any mucus that may be present. Exacerbati on of mild persistent asthma 393957830 J45.31 Continue the albuterol nebulizer 3 times a day for 7 days Health Concerns Section Related Observation LastModified by Organization Detai ls LastModified Time None Recorded Concern Status LastModified by Organization Details LastModified Time None Recorded Advance Directives Directive None Recorded Payers Encounter Date Sequence Insurance Name Policy Number Policy [place] Covered Member ID [place] Member ID Guarantor Name 06/04/2022 1 [facility] [id number] Anaralis M Frias [id number] Anaralis Frias 11/26/2023 1 [facility] [id number] Anaralis M Frias [id number] Anaralis Frias 02/07/2024 1 [facility] [id number] Anaralis M Frias [id number] Anaralis Frias Notes Date Note Type Note [...] BELKYS GRAY NP [address] [place], [address], [place] - [facility] 11/26/2023 09:00:57 02/07/2024 text/html 33 yo female c/o persistent cough x 3 days after smoking cannabis. Hx of Asthma and is using albuterol inhaler and nebulizer intermittently. She states she usually responds to the addition of prednisone. Tmax = 99.2. No ear pian, headache, sore throat, abdo pian, n/v/rash. JEIMY ANAND MD [address] [facility] [place], [address], [place] - [facility] 02/07/2024 10:11:16 OBGyn Episode No OBEpisode recorded.
--- OUTSIDE RECORDS SUMMARY | 2024-12-12 09:12 | XMS_ITS | Encounter Summary ---
Author Organization [facility] Address [address] [place] [address] Care Team Providers Care Planer Offbearer Name Role Phone Aleksandar So MD Primary Care Provider Un available Jaya Burnham MD Primary Care Provider Unavail able Vika Restrepo MD Primary Care Provider Unavaila ble [facility], Pcp Primary Care Provider Unavailabl e Cierra Lizarraga MD Primary Care Provider [phone] Cris Hernández MD Primary Care Provider [phone] [facility], [facility] Primary Care Provider Unavailabl e Reason for Visit * Reason Onset Date Comments Nurse Triage Follow-up 06/11/2011 Encounter Details Date Type Department Care Team Description 06/11/2011 Telephone Pediatrics - [facility] [address] [place] [address] Tera Key MD Nurse Triage Follow-up Social History Tobacco Use Types Packs/Day Years Used Date Smoking Tobacco: Never Alcohol Use Standard Drinks/Week Comments Not Asked 0 (1 standard drink = 0.6 oz pur e alcohol) Sex Assigned at Date Recorded Female 01/12/2022 9:59 PM E DT Job Start Date Occupation Industry Not on file Not on file Not on file documented as of this encounter Miscellaneous Notes * Telephone Encounter - Aleksandar So MD - 06/15/2011 10:52 AM EST Please call Miriam and see how she is doing. If worse or no beeter let me know immwdiately. If improving, I should see her in the office this wk. * Telephone Encounter - Tera Key MD - 06/14/2011 10:37 AM EST Below noted. Any further plans via Miriam's PCP, Aleksandar So MD * Telephone Encounter - Criselda AceP.N. - 06/12/2011 10:57 AM EDT I spoke with Miriam; states that she did not go back to [facility] ER yesterday. Patient states that the area on her leg has decreased in size. Patient states that she was going to go back to ER on Wednesday (06/15/11;) advised her to be seen sooner-today if at all possible. * Telephone Encounter - Tera Key MD - 06/12/2011 10:07 AM EDT Please check with Miriam or her mom and see how she is doing. What is the surgical plan for removal of abscess as well as plan for antibiotics? Please notify Aleksandar So MD of plans as well. * Telephone Encounter - Tera Key MD - 06/11/2011 5:27 PM EDT I spoke with mom this afternoon and referred Miriam back to the [facility] ER for surgical re-evaluationthimilan rees. We contacted peds surgery who felt that given her age Miriam would best be served by adult general surgery. The staff contacted [facility] adult general surg. The attending requested a copy of my notes from today. We faxed those along with a copy of the [facility] hospital d/c note. The surgeon's office replied that they would see her on 06/22/2011. I discussed this with Dr Juni Donahue at [facility], peds hospitalist, who participated in Elliralmartha's care in [facility]. He agreed that she should be re-evaluated sooner than 11 days from now. He suggested she be referred back to [facility] via the ER. I spoke with triage nurse at [facility] ER. She agreed to look for Anaralis and triage her so that she can be reassessed thiseve. documented in this encounter Plan of Treatment Not on file documented as of this encounter Visit Diagnoses Not on filedocumented in this encounter Additional Health Concerns Infection Onset Date Last Indicated Resolved Time COVID-19 05/05/2022 05/05/2022 documented as of this encounter Care Teams Planer Offbearer Relationship Specialty Start Date End Date Aleksandar So MD PCP - General 09/04/1997 10/18/12 Jaya Burnham MD PCP - General Internal Medicine 10/19/12 08/27/15 Vika Restrepo MD PCP - General Internal Medicine 08/28/15 02/06/21 [facility], Pcp PCP - General Internal Medicine 02/07/21 02/23/21 Cierra Lizarraga MD [address] [place] [address] PCP - General Internal Medicine 02/24/21 09/13/22 Cris Hernández MD [address] [place] [address] PCP - General Internal Medicine 09/14/22 05/21/24 [facility], Pcp PCP - General Internal Medicine 05/22/24 documented as of this encounter
--- OUTSIDE RECORDS SUMMARY | 2024-12-12 09:12 | XMS_ITS | Encounter Summary ---
Author Organization [facility] Address [address] [place] [address] Care Team Providers Care Glove Printer Name Role Phone Vika Restrepo MD Primary Care Provider Thang allen [facility], Pcp Primary Care Provider Cierra Bravo MD Primary Care Provider [phone] Cris Hernández MD Primary Care Provider [phone] [facility], Pcp Primary Care Provider Unavailtrista odonnell Encounter Details Date Type Department Care Team Description 12/18/2015 Grain Cleaner Report Medical Records [address] [place] [address] Social History Tobacco Use Types Packs/Day Years Used Date Smoking Tobacco: Former Cigarettes 0.3 1 Q uit: 08/09/2015 Smokeless Tobacco: Never Alcohol Use Standard Drinks/Week Comments Yes 0 (1 standard drink = 0.6 oz pure alcohol) 1 drink every other week or so. Sex Assigned at Date Recorded Female 01/12/2022 [...] documented as of this encounter Care Teams Glove Printer Relationship Specialty Start Date End Date Vika Restrepo MD PCP - General Internal Medicine 08/28/15 02/06/21 [facility], Pcp PCP - General Internal Medicine 02/07/21 02/23/21 Cierra Lizarraga MD [address] [place] [address] PCP - General Internal Medicine 02/24/21 09/13/22 Cris Hernández MD [address] [place] [address] PCP - General Internal Medicine 09/14/22 05/21/24 [facility], Pcp PCP - General Internal Medicine 05/22/24 documented as of this encounter
--- OUTSIDE RECORDS SUMMARY | 2024-12-12 09:12 | XMS_ITS | Encounter Summary ---
Author Organization [facility] Address [address] [place] [address] Care Team Providers Care Coat Room Attendant Name Role Phone Aleksandar So MD Primary Care Provider Un available Jaya Burnham MD Primary Care Provider Unavail able Vika Restrepo MD Primary Care Provider Unavaila alejandro [facility], Pcp Primary Care Provider Unavailabl Cierra Santos MD Primary Care Provider [phone] Cris Hernández MD Primary Care Provider [phone] [facility], Pcp Primary Care Provider Unavailtrista odonnell Encounter Details Date Type Department Care Team Description 02/26/2010 Magnetometer Operator Report Medical Records [address] [place] [address] Social History Tobacco Use Types Packs/Day Years [...] documented as of this encounter Care Teams Coat Room Attendant Relationship Specialty Start Date End Date Aleksandar So MD PCP - General 09/04/1997 10/18/12 Jaya Burnham MD PCP - General Internal Medicine 10/19/12 08/27/15 Vika Restrepo MD PCP - General Internal Medicine 08/28/15 02/06/21 [facility] Pcp PCP - General Internal Medicine 02/07/21 02/23/21 Cierra Lizarraga MD [address] [place] [address] PCP - General Internal Medicine 02/24/21 09/13/22 Cris Hernández MD [address] [place] [address] PCP - General Internal Medicine 09/14/22 05/21/24 [facility], Pcp PCP - General Internal Medicine 05/22/24 documented as of this encounter
--- OUTSIDE RECORDS SUMMARY | 2024-12-12 09:12 | XMS_ITS | Encounter Summary ---
Author Organization [facility] Address [address] [place] [address] Care Team Providers Care Diesel Engine Ii Pipe Fitter Name Role Phone Aleksandar So MD Primary Care Provider Un available Jaya Burnham MD Primary Care Provider Unavail able Vika Restrepo MD Primary Care Provider Unavaila alejandro [facility], Pcp Primary Care Provider Unavailabl e Cierra Lizarraga MD Primary Care Provider [phone] Cris Hernández MD Primary Care Provider [phone] [facility], [facility] Primary Care Provider Unavailtrista odonnell Encounter Details Date Type Department Care Team Description 04/06/2011 Eye Accelerator Systems Director Report Medical Records [address] [place] [address] [facility] Eye Social History Tobacco Use Types Packs/Day Years [...] documented as of this encounter Care Teams Diesel Engine Ii Pipe Fitter Relationship Specialty Start Date End Date Aleksandar So MD PCP - General 09/04/1997 10/18/12 Jaya Burnham MD PCP - General Internal Medicine 10/19/12 08/27/15 Vika Restrepo MD PCP - General Internal Medicine 08/28/15 02/06/21 [facility], Pcp PCP - General Internal Medicine 02/07/21 02/23/21 Cierra Lizarraga MD [address] [place] [address] PCP - General Internal Medicine 02/24/21 09/13/22 Cris Hernández MD [address] [place] [address] PCP - General Internal Medicine 09/14/22 05/21/24 [facility], Pcp PCP - General Internal Medicine 05/22/24 documented as of this encounter
--- OUTSIDE RECORDS SUMMARY | 2024-12-12 09:12 | XMS_ITS | Encounter Summary ---
Author Organization [facility] Address [address] [place] [address] Care Team Providers Care Assistant Store Manager Name Role Phone Vika Restrepo MD Primary Care Provider Thang allen [facility], Pcp Primary Care Provider Cierra Bravo MD Primary Care Provider Cris Hernández MD Primary Care Provider [phone] [facility], Pcp Primary Care Provider Unavailtrista odonnell Encounter Details Date Type Department Care Team Description 12/18/2016 Release of Information Medical Records [address] [place] [address] Abstract, Provider Social History Tobacco Use Types Packs/Day Years [...] documented as of this encounter Care Teams Assistant Store Manager Relationship Specialty Start Date End Date Vika Restrepo MD PCP - General Internal Medicine 08/28/15 02/06/21 [facility], Pcp PCP - General Internal Medicine 02/07/21 02/23/21 Cierra Lizarraga MD [address] [place] [address] PCP - General Internal Medicine 02/24/21 09/13/22 Cris Hernández MD [address] [place] [address] PCP - General Internal Medicine 09/14/22 05/21/24 [facility], Pcp PCP - General Internal Medicine 05/22/24 documented as of this encounter
--- OUTSIDE RECORDS SUMMARY | 2024-12-12 09:12 | XMS_ITS | Encounter Summary ---
Author Organization [facility] Address [address] [place] [address] Care Team Providers Care Maintenance Apprentice Name Role Phone iVka Restrepo MD Primary Care Provider Thang allen [facility] Includes [facility], Pcp Primary Care Provider Cierra Bravo MD Primary Care Provider [phone] Cris Hernández MD Primary Care Provider [phone] Count Includes [facility], Pcp Primary Care Provider Unavailabl e Encounter Details Date Type Department Care Team Description 09/04/2019 Telephone Internal Medicine - [address], [address] [place] [address] Vi King, ,RDN,LDN Social History Tobacco Use Types Packs/Day Years [...] Telephone Encounter - Mayank Maloney PA-C - 09/11/2019 8:25 AM EST Thanks for FYI. * Telephone Encounter - Laure Moralez - 09/04/2019 11:38 AM EST All attempts to reach patient to schedule Nutrition appointment have been exhausted. documented in this encounter Plan of Treatment Not on file documented as of this encounter Visit Diagnoses Not on filedocumented in this encounter Additional Health Concerns Infection Onset Date Last Indicated Resolved Time COVID-19 05/05/2022 05/05/2022 documented as of this encounter Care Teams Maintenance Apprentice Relationship Specialty Start Date End Date Vika Restrepo MD PCP - General Internal Medicine 08/28/15 02/06/21 Count Includes [facility], Pcp PCP - General Internal Medicine 02/07/21 02/23/21 Cierra Lizarraga MD [address] [place] [address] PCP - General Internal Medicine 02/24/21 09/13/22 Cris Hernández MD [address] [place] [address] PCP - General Internal Medicine 09/14/22 05/21/24 Count Includes [facility], Pcp PCP - General Internal Medicine 05/22/24 documented as of this encounter
--- OUTSIDE RECORDS SUMMARY | 2024-12-12 09:12 | XMS_ITS | Encounter Summary ---
Author Organization [facility] Address [address] [place] [address] Care Team Providers Care Vial Gauger Name Role Phone Jaya Burnham MD Primary Care Provider Unavail able Vika Restrepo MD Primary Care Provider Unavailheaven allen [facility], Pcp Primary Care Provider Unavailabl e Cierra Lizarraga MD Primary Care Provider [phone] Cris Hernández MD Primary Care Provider [phone] [facility], Pcp Primary Care Provider Unavailtrista odonnell Encounter Details Date Type Department Care Team Description 12/06/2012 Transfer Records Medical Records [address] [place] [id number] Abstract, Provider Social History Tobacco Use Types Packs/Day Years Used Date Smoking Tobacco: Never Smokeless Tobacco: Never Alcohol Use Standard Drinks/Week [...] documented as of this encounter Care Teams Vial Gauger Relationship Specialty Start Date End Date Jaya Burnham MD PCP - General Internal Medicine 10/19/12 08/27/15 Vika Restrepo MD PCP - General Internal Medicine 08/28/15 02/06/21 [facility], Pcp PCP - General Internal Medicine 02/07/21 02/23/21 Cierra Lizarraga MD [address] [place] [address] PCP - General Internal Medicine 02/24/21 09/13/22 Cris Hernández MD [address] [place] [address] PCP - General Internal Medicine 09/14/22 05/21/24 [facility], Pcp PCP - General Internal Medicine 05/22/24 documented as of this encounter
--- OUTSIDE RECORDS SUMMARY | 2024-12-12 09:12 | XMS_ITS | Encounter Summary ---
Author Organization [facility] Address [address] [place] [address] Care Team Providers Care Hydraulic Press In Operator Name Role Phone Vika Restrepo MD Primary Care Provider Unavailheaven allen [facility], Pcp Primary Care Provider UnavailCierra Wilde MD Primary Care Provider [phone] Cris Hernández MD Primary Care Provider [phone] [facility], Pcp Primary Care Provider Unavailtrista odonnell Encounter Details Date Type Department Care Team Description 12/29/2016 Orders Only Medicine/Pediatrics - [address] [phone] Sal Alicia PA-C Right calf pain Social History Tobacco Use Types Packs/Day Years [...] Procedure Name Priority Date/Time Associated Diagnosis Comments IN DUP-SCAN XTR VEINS UNILATERAL/LIMITED STUDY STAT 12/22/2016 Right calf pain documented in this encounter Results * EXTREMITY VEINS STUDY, LIMITED (12/22/2016) Sal Alicia PA-C ULTRASOUND documented in this encounter Visit Diagnoses Diagnosis Right calf pain documented in this encounter Additional Health Concerns Infection Onset Date Last Indicated Resolved Time COVID-19 05/05/2022 05/05/2022 documented as of this encounter Care Teams Hydraulic Press In Operator Relationship Specialty Start Date End Date Vika Restrepo MD PCP - General Internal Medicine 08/28/15 02/06/21 [facility], Pcp PCP - General Internal Medicine 02/07/21 02/23/21 Cierra Lizarraga MD [address] [place] [address] PCP - General Internal Medicine 02/24/21 09/13/22 Cris Hernández MD [address] [place] [address] PCP - General Internal Medicine 09/14/22 05/21/24 [facility], Pcp PCP - General Internal Medicine 05/22/24 documented as of this encounter
--- OUTSIDE RECORDS SUMMARY | 2024-12-12 09:12 | XMS_ITS | Encounter Summary ---
Author Organization [facility] Address [address] [place] [address] Care Team Providers Care Medical Practice Assistant Name Role Phone Cierra Lizarraga MD Primary Care Provider [phone] Cris Hernández MD Primary Care Provider [phone] [facility] Primary Care Provider Unavailabl e Encounter Details Date Type Department Care Team Description 03/10/2022 Orders Only Medical Records [address] [place] [address] Laure Blanco PA-C Social History Tobacco Use Types Packs/Day [...] Procedure Name Priority Date/Time Associated Diagnosis Comments OUTSIDE SLEEP STUDY Routine 01/31/2022 documented in this encounter Results * OUTSIDE SLEEP STUDY (01/31/2022) Laure Blanco PA-C PULMONOLOGY documented in this encounter Visit Diagnoses Not on filedocumented in this encounter Additional Health Concerns Infection Onset Date Last Indicated Resolved Time COVID-19 05/05/2022 05/05/2022 documented as of this encounter Care Teams Medical Practice Assistant Relationship Specialty Start Date End Date Cierra Lizarraga MD [address] [place] [address] PCP - General Internal Medicine 02/24/21 09/13/22 Cris Hernández MD [address] [place] [address] PCP - General Internal Medicine 09/14/22 05/21/24 [facility], [address] [address] PCP - General Internal Medicine 05/22/24 documented as of this encounter
--- OUTSIDE RECORDS SUMMARY | 2024-12-12 09:12 | XMS_ITS | Encounter Summary ---
Author Organization [facility] Address [address] [place] [address] Care Team Providers Care Portable Track Crew Chief Name Role Phone Cierra Lizarraga MD Primary Care Provider [phone] Cris Hernández MD Primary Care Provider [phone] [facility] Primary Care Provider Unavailabl e Encounter Details Date Type Department Care Team Description 03/17/2022 Pt. Non Urgent Medical Question Pediatrics - [place] [address] [place] [address] Vida Harvey FNP [address] [place] [address] Social History Tobacco Use Types Packs/Day Years [...] encounter Miscellaneous Notes * Telephone Encounter - Vika Banda L.P.N. - 03/18/2022 7:35 AM EDTFrom: Miriam Frias To: Denae Harvey Sent: 03/17/2022 11:31 PM EDT Subject: Cpap machine Hi I had a second sleep study done at the end of January with a cpap machine over at [facility] sleep medicine services. I haven???t received any notice on the status of my machine or any update since thesleep study was done. any information would be helpful. documented in this encounter Plan of Treatment Not on file documented as of this encounter Visit Diagnoses Not on filedocumented in this encounter Additional Health Concerns Infection Onset Date Last Indicated Resolved Time COVID-19 05/05/2022 05/05/2022 documented as of this encounter Care Teams Portable Track Crew Chief Relationship Specialty Start Date End Date Cierra Lizarraga MD [address] [place] [address] PCP - General Internal Medicine 02/24/21 09/13/22 Cris Hernández MD [address] [place] [address] PCP - General Internal Medicine 09/14/22 05/21/24 [facility], Pcp [address] [place] [address] PCP - General Internal Medicine 05/22/24 documented as of this encounter
--- OUTSIDE RECORDS SUMMARY | 2024-12-12 09:12 | XMS_ITS | Encounter Summary ---
Author Organization [facility] Address [address] [place] [address] Care Team Providers Care Head Concierge Name Role Phone Vika Restrepo MD Primary Care Provider Thang allen [facility], Pcp Primary Care Provider UnavailCierra Wilde MD Primary Care Provider [phone] Cris Hernández MD Primary Care Provider [phone] [facility], Pcp Primary Care Provider Unavailabl e Encounter Details Date Type Department Care Team Description 08/07/2019 Pt. Non Urgent Medical Question MANUFACTURING SYSTEMS ENGINEER - [address] [id number] Delfin Randall MD Social History Tobacco Use Types Packs/Day Years [...] encounter Miscellaneous Notes * Telephone Encounter - Letha Lopez R.N. - 08/07/2019 9:00 AM ESTFrom: Miriam Altagracia To: Delfin Randall MD Sent: 08/07/2019 5:04 AM EST Subject: Vaginal itchiness Hi Dr. Randall, I have been experiencing discomfort dryness and itchiness around my vagina. I was recently tested for std's and was found all clear and have not had intercourses since then. I also have been experiencing stinging pain after showering or urinating. It feels like a rash, but I'm not able to ge t a good look myself. I saw you don't have openings until August 22. Is there a possibility to be seen sooner or should I try to schedule an appointment with my PCP? Any information will be helpful documented in this encounter Plan of Treatment Not on file documented as of this encounter Visit Diagnoses Not on filedocumented in this encounter Additional Health Concerns Infection Onset Date Last Indicated Resolved Time COVID-19 05/05/2022 05/05/2022 documented as of this encounter Care Teams Head Concierge Relationship Specialty Start Date End Date Vika Restrepo MD PCP - General Internal Medicine 08/28/15 02/06/21 [facility], Pcp PCP - General Internal Medicine 02/07/21 02/23/21 Cierra Lizarraga MD [address] [place] [address] PCP - General Internal Medicine 02/24/21 09/13/22 Cris Hernández MD [address] [place] [address] PCP - General Internal Medicine 09/14/22 05/21/24 [facility], Pcp PCP - General Internal Medicine 05/22/24 documented as of this encounter
--- OUTSIDE RECORDS SUMMARY | 2024-12-12 09:12 | XMS_ITS | Encounter Summary ---
Author Organization [facility] Address [address] [place] [address] Care Team Providers Care Microbiology Manager Name Role Phone Cierra Lizarraga MD Primary Care Provider [phone] Cris Hernández MD Primary Care Provider [phone] [facility], Pcp Primary Care Provider Unavailabl e Encounter Details Date Type Department Care Team Description 01/03/2022 Pt. Non Urgent Medical Question Pulmonology - [place] [address] [facility] [address] [place] [id number] Vida Harvey, [facility] [address] [place] [address] Social History Tobacco Use Types Packs/Day Years [...] documented as of this encounter Care Teams Microbiology Manager Relationship Specialty Start Date End Date Cierra Lizarraga MD [address] [place] [address] PCP - General Internal Medicine 02/24/21 09/13/22 Cris Hernández MD [address] [place] [address] PCP - General Internal Medicine 09/14/22 05/21/24 [facility], [place] [address] PCP - General Internal Medicine 05/22/24 documented as of this encounter
--- OUTSIDE RECORDS SUMMARY | 2024-12-12 09:12 | XMS_ITS | Encounter Summary ---
Author Organization [facility] Address [address] [place] [address] Care Team Providers Care Wet Finisher Wool Name Role Phone Cierra Lizarraga MD Primary Care Provider [phone] Cris Hernández MD Primary Care Provider [phone] [facility] Primary Care Provider Unavailabl e Reason for Visit * Reason Onset Date Comments REFERRAL 09/01/2021 External Sleep Soham rogers Encounter Details Date Type Department Care Team Description 09/01/2021 Telephone Adult Medicine [facility] [address] [place] [address] [phone] Cierra Lizarraga MD [address] [place] [address] [phone] REFERRAL (External Sleep Study ) Social History Tobacco Use Types Packs/Day Years [...] encounter Miscellaneous Notes * Telephone Encounter - Jaycee Carmichael - 09/02/2021 11:45 AM EST Wrong pool we do not do referrals for sleep study. * Telephone Encounter - Heavenly Olvera - 09/01/2021 12:14 PM EST What insurance does the patient have today? [facility] Effective 05/09/09: [employer] will not retro referral requests over 90 days. If request is for this please instruct patient to call the 800# on their insurance card to appeal. Do not submit a request. Referrals cannot be processed if the insurance is not accurate. If the insurance listed above in red is NO BILLING INFORMATION FOUND FOR THIS ENCOUTNER The patients correct insurance must be obtained and registered in [facility] or their referral can not be processed. Is this a retro request? NO. If yes for what date of service do you need the retro referral? N/A Who is calling to request this referral? Patient If the caller is not the patient, what is their name? N/A Ask the patient WHO referred them to this specialty: Patient self referred FIRST and LAST NAME of SPECIALIST PATIENT is seeing: Sleep Medicine Services What specialty is this? Sleep Clinic (Previous referral done, See encounter 04/03/21) DIAGNOSIS Patient is being seen for (Not a body part or a procedure): Sleep Apnea Have you seen this SPECIALIST for this PROBLEM/DX before?NO If YES, when:n/a Have you checked REVIEW or the APPT DESK to see if this referral has already been done or has visits left? YES Is this visit:Initial Visit Address of Specialist:[address] [place] [address] Phone # of Specialist:[phone] Fax #: (if applicable)[phone] Does patient have an appointment scheduled?: NO Date of appointment- (including a retro-request): n/a Is this appointment related to: Not MVA, WC or Surgery related documented in this encounter Plan of Treatment Not on file documented as of this encounter Visit Diagnoses Not on filedocumented in this encounter Additional Health Concerns Infection Onset Date Last Indicated Resolved Time COVID-19 05/05/2022 05/05/2022 documented as of this encounter Care Teams Wet Finisher Wool Relationship Specialty Start Date End Date Zia, Cierra B., MD [address] [place] [address] PCP - General Internal Medicine 02/24/21 09/13/22 Cris Hernández MD [address] [place] [address] PCP - General Internal Medicine 09/14/22 05/21/[address] [address] PCP - General Internal Medicine 05/22/24 documented as of this encounter
--- OUTSIDE RECORDS SUMMARY | 2024-12-12 09:12 | XMS_ITS | Encounter Summary ---
Author Organization [facility] Address [address] [place] [address] Care Team Providers Care Psychologist Counseling Name Role Phone Cierra Lizarraga MD Primary Care Provider [phone] Cris Hernández MD Primary Care Provider [facility] Primary Care Provider Unavailabl e Reason for Visit * Reason Onset Date Comments Dish Up Person Feedback 03/06/2021 Endo Encounter Details Date Type Department Care Team Description 03/06/2021 Telephone Adult Medicine [address] [phone] Cierra Lizarraga MD [address] [place] [address] [phone] Dish Up Person Feedback (Endo) Social History Tobacco Use Types Packs/Day Years [...] have Coronavirus / COVID-19? No / Unsure 03/05/2021 3:30 PM EDT documented as of this encounter Miscellaneous Notes * Telephone Encounter - Lindy Briscoe - 03/06/2021 10:23 AM EDT My apologies, Dr. Lizarraga - it was routed in error. Sent to Sofie Ahn to sign off as well. Take care, and have a great weekend ahead! Thank you, Lindy Referrals Manager Interventional * Telephone Encounter - Cierra Lizarraga MD - 03/06/2021 9:14 AM EDT I did not place this referral - please send this to Sofie Ahn who did place the referral * Telephone Encounter - Lindy Briscoe - 03/06/2021 9:03 AM EDT FYI to Cierra Lizarraga MD: Hello Dr. Lizarraga, You referred the patient to see Endocrinology within a 1-week priority, but the soonest I could schedule the patient for is 03/25/21 via Telehealth appointment. An in-person appointment would have been 06/02/21. If you feel the patient needs to be seen sooner, please call and speak with [facility] Endocr[facility]ology at [phone]. If this appointment is acceptable, please document and close the encounter. A letter has been mailed to the patient with the appointment information. If the appointment information changes, please contact the patient with their new appointment information. Thank you, Lindy Referrals Manager Interventional documented in this encounter Plan of Treatment Not on file documented as of this encounter Visit Diagnoses Not on filedocumented in this encounter Additional Health Concerns Infection Onset Date Last Indicated Resolved Time COVID-19 05/05/2022 05/05/2022 documented as of this encounter Care Teams Psychologist Counseling Relationship Specialty Start Date End Date Cierra Lizarrgaa MD [address] [place] [address] PCP - General Internal Medicine 02/24/21 09/13/22 Cris Hernández MD [address] [place] [address] PCP - General Internal Medicine 09/14/22 05/21/24 [facility] [place] [address] [place] [address] PCP - General Internal Medicine 05/22/24 documented as of this encounter
--- OUTSIDE RECORDS SUMMARY | 2024-12-12 09:12 | XMS_ITS | Encounter Summary ---
Author Organization [facility] Address [address] [place] [address] Care Team Providers Care Tattoo Designer Name Role Phone Vika Restrepo MD Primary Care Provider Thang allen [facility], Pcp Primary Care Provider Cierra Bravo MD Primary Care Provider Cris Hernández MD Primary Care Provider [phone] [facility], Pcp Primary Care Provider Nadja odonnell Encounter Details Date Type Department Care Team Description 03/08/2017 Transfer Records Medical Records [address] [place] [id number] Abstract, Provider Social History Tobacco Use Types [...] documented as of this encounter Care Teams Tattoo Designer Relationship Specialty Start Date End Date Vika Restrepo MD PCP - General Internal Medicine 08/28/15 02/06/21 [facility], Pcp PCP - General Internal Medicine 02/07/21 02/23/21 Cierra Lizarraga MD [address] [place] [address] PCP - General Internal Medicine 02/24/21 09/13/22 Cris Hernández MD [address] [place] [address] PCP - General Internal Medicine 09/14/22 05/21/24 [facility], Pcp PCP - General Internal Medicine 05/22/24 documented as of this encounter
--- OUTSIDE RECORDS SUMMARY | 2024-12-12 09:12 | XMS_ITS | Encounter Summary ---
Author Organization [facility] Address [address] [place] [address] Care Team Providers Care Loss Prevention Agent Name Role Phone Vika Restrepo MD Primary Care Provider Unavailheaven allen [facility], Pcp Primary Care Provider UnavailCierra Wilde MD Primary Care Provider [phone] Cris Hernández MD Primary Care Provider [phone] [facility], Pcp Primary Care Provider Unavailtrista odonnell Encounter Details Date Type Department Care Team Description 04/16/2016 Pt. Non Urgent Medic al Question P[facility]ER - [address] [phone] Mary Alice Torres MD Social History Tobacco Use Types Packs/Day [...] as of this encounter Progress Notes * Letha Lopez R.N. - 04/17/2016 8:48 AM EDTFrom: Miriam Frias To: Mary Alice Torres MD Sent: 04/16/2016 6:12 PM EDT Subject: Follow up-irregularity Hi dr. Torres, I am emailing you as a follow up to my annual appointment a few weeks ago. When I came in I had missed my period for the month of February and we talked about my irregularity. I got my period this month,but it is now lasting longer than I am used to. I started my period April 05 and it's now the and I still have it. Also it is still pretty heavy with no signs of slowing down (still very bright red instead of darker like it's ending). What is also weird to me is that I do not have cramps, when I usually have really bad cramps. I just wanted to message you and voice this concern I have. Looking forward to your response Thank you Miriam Frias documented in this encounter Plan of Treatment Not on file documented as of this encounter Visit Diagnoses Not on filedocumented in this encounter Additional Health Concerns Infection Onset Date Last Indicated Resolved Time COVID-19 05/05/2022 05/05/2022 documented as of this encounter Care Teams Loss Prevention Agent Relationship Specialty Start Date End Date Vika Restrepo MD PCP - General Internal Medicine 08/28/15 02/06/21 [facility], Pcp PCP - General Internal Medicine 02/07/21 02/23/21 Cierra Lizarraga MD [address] [place] [address] PCP - General Internal Medicine 02/24/21 09/13/22 Cris Hernández MD [address] [place] [address] PCP - General Internal Medicine 09/14/22 05/21/24 [facility] PCP - General Internal Medicine 05/22/24 documented as of this encounter
[2024-12-12 11:35] LABS: Hematocrit 34.3 % (37.0-47.0); Hemoglobin 10.6 g/dl (12.0-16.0); Mean Corpuscular HGB Conc 30.9 g/dl (31.0-35.0); Mean Corpuscular Hemoglobin 27.2 pg (27.0-33.0); Mean Corpuscular Volume 87.9 fL (80.0-98.0); Mean Platelet Volume 9.8 fL (9.4-12.3); Platelet Count 314 X10*3/uL (160-400); Red Cell Distribution Width 15.1 % (11.0-16.0); White Blood Count 8.5 X10*3/uL (4.8-10.8)
[2024-12-12 11:53] LABS: Estimated Average Glucose 111 mg/dL; Hemoglobin A1c % 5.5 % (<6.0); Total Hemoglobin (HGBA1C) 2804.2588 umol/L
[2024-12-12 12:13] LABS: Cortisol Random 9.1 ug/dL
[2024-12-12 14:39] LABS: Anion Gap 12 (12-20)
[2024-12-12 14:45] LABS: Alanine Aminotransferase 20 U/L (0-31); Albumin Level 4.1 g/dL (3.5-5.0); Aspartate Amino Transferase 23 U/L (5-31); Bilirubin Total 0.3 mg/dL (0.0-1.0); Blood Urea Nitrogen 25 mg/dL (9-16); Calcium 9.5 mg/dL (8.4-10.2); Carbon Dioxide 30 mmol/L (22-29); Chloride 102 mmol/L (96-108); Cholesterol 166 mg/dL (<200); Estimated Glomerular Filt Rate > 60; Glucose Random 85 mg/dL (60-115); HDL Cholesterol 45 mg/dL (>40); LDL Cholesterol Calculated 101 mg/dL (<100); Potassium 4.3 mmol/L (3.3-5.1); Sodium 140 mmol/L (135-145); Total Protein 7.5 g/dL (6.5-8.0); Triglycerides 104 mg/dL (<150)
[2024-12-12 15:20] LABS: TSH reflex Free T4 1.83 uIU/mL (0.32-4.0)
[2024-12-12 17:59] LABS: Alkaline Phosphatase 50 U/L (39-117)
== END 2024-12-12 08:45 | disposition home or self-care (01) ==
LOC: HO.WFDLDS 08:44
PROVIDERS: Visit Provider Physician Assistant Medical
DX: J45.30 Mild persistent asthma, uncomplicated (principal); E66.01 Morbid (severe) obesity due to excess calories; E11.9 Type 2 diabetes mellitus without complications; E78.5 Hyperlipidemia, unspecified
CPT/HCPCS: 36415; 80053; 80061; 82533; 83036; 84443; 85027

== ENCOUNTER 2025-01-29 12:30 | Outpatient (AMB) | payer OTHER, SELFPAY ==
[2025-01-29 12:39] VITALS: BMI 65.9
--- NOTE | 2025-01-29 12:39 | A.OFFVIS_ITS ---
VS Expanded 01/29/25 12:39 01/30/25 12:28 Height 5 ft 3 in 5 ft 3 in Weight 372 lb 2.244 oz 372 lb BMI 65.9 65.9 Intake Visit Reasons: Morbid (severe) obesity Allergies peanut Allergy (Severe, Verified 12/07/24 14:39) Anaphylaxis tree nut Allergy (Severe, Verified 12/07/24 14:39) Anaphylaxis, HIVE mold Allergy (Verified 12/07/24 14:39) Asthma flare Seasonal Allergies Allergy (Verified 12/07/24 14:39) Runny nose, watery eyes Cat dander Allergy (Uncoded 12/07/24 14:38) Itchy eyes, SOB Nutrition Presentation Details: Pt presents for MNT for severe obesity. Pt reports working withe a mental health care provider and discusses emotional eating Pt reports having 3 meals/day working on following healthy plate method reports increased appetite for high salt/fat snacks learning to distinguish hunger vs appetite/emotions food frequency fruits : 0-1/d ve-4 x/wk dairy > 5/d fish : 0-1/wk starches > 40 /d beverages: working on reducing sugars from beverages, has flavored water with no sugar 36 oz/d physical activity: ADL etoh/smoking -denies reports eating fast allergies to peanut/tree nuts BS Monitoring Most Recent Diabetes Results: Cholesterol, (<200) 166 mg/dL 12/12/24 HDL Cholesterol, (>40) 45 mg/dL 12/12/24 Triglycerides, (<150) 104 mg/dL 12/12/24 Creatinine, (0.5-1.4) 0.92 mg/dL 12/12/24 BUN, (9-16) 25 mg/dL H 12/12/24 Sodium, (135-145) 140 mmol/L 12/12/24 Potassium, (3.3-5.1) 4.3 mmol/L 12/12/24 Chloride, (96-108) 102 mmol/L 12/12/24 Carbon Dioxide, (22-29) 30 mmol/L H 12/12/24 Calcium, (8.4-10.2) 9.5 mg/dL 12/12/24 AST, (5-31) 23 U/L 12/12/24 ALT, (0-31) 20 U/L 12/12/24 Total Protein, (6.5-8.0) 7.5 g/dL 12/12/24 Albumin, (3.5-5.0) 4.1 g/dL 12/12/24 YEG-Piobynu-Zt.Milan Equation Height: 5 ft 3 in Weight: 372 lb Resting Metabolic Rate: 2367.36 Calculated Activity Level: Sedentary Calories Needed to Maintain Weight: 2840.83 Diagnosis Nutrition problem #1: excessive energy intake and food nutri know defi As related to (etiology) #1: diagnosis As evidenced by (sign/symptom) #1: high BMI and knowledge deficit of diet [facility] Medical History (Updated 12/14/24 @ 21:43 by MICHELE Kam) Anemia Routine physical examination Asthma exacerbation Morbid obesity Asthma MARJORIE on CPAP MARJORIE (obstructive sleep apnea) Major depressive disorder Severe obesity KAMILA (acute kidney injury) History of fluid overload Cardiomyopathy CAP (community acquired pneumonia) Respiratory failure with hypoxia and hypercapnia Surgical History (Updated 09/10/21 @ 13:00 by Franchesca España CMA) Hx of tonsillectomy Family History Mother Lupus Psoriasis Kidney stone Asthma Allergies Father Thyroid condition Asthma Addiction Hypertension Stroke Brother ADHD Brother Autism Brother Obesity Brother Obesity Sister Obesity Social History (Updated 12/07/24 @ 14:41 by Suyapa Sy MA) Housing: Apartment Alcohol intake: current Alcohol intake frequency: holidays/special occasions only Patient Tobacco Use Status: Former Tobacco user Cigarettes Per Day: 5 Years Smoked: 10 e-Cigarette/Vaping Use: Never Used Second Hand Smoke Exposure: No Substance Use Type: Marijuana service: No Current occupational status: employed 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) Cognitive needs: No Hearing needs: No Vision needs: No Assessment & Plan Assessment & Plan (1) Morbid obesity: Code(s): E66.01 - Morbid (severe) obesity due to excess calories Category: Medical Plan: Wt: 169 kg Kg ( 01/31 ) Est kcal needs as per MSJ: 2800 (40% carb, 30% protein/fat) Est fluid needs as per 25-30 ml/d: 5100 Est prot per day as per 1 g/kg bw: 170 Recommend fiber intake : 8-10 g per day and gradually increase to 25-28 g per day for women and 35-38 g for men or as tolerated Recommend sodium intake per day : less than 2300 mg Educated patient on: ( R = reviewed V = verbalizes understanding N/R = needs review N/A = not applicable * Food sources of carbohydrate, adequate serving sizes and its role in various health conditions: R V N/R * Differences between complex carbohydrates a simple carbohydrates, role of fiber in diet: R * Lean protein sources of foods: R V NR * Differences between types of fats and role in diet (mono on saturated fat fatty acids, saturated fatty acids, trans fats): R V N/R * Food sources of sodium in salt and healthy modifications for heart health in kidney health: R V R/V * Vitamins and minerals: R V N/R * Healthy plate method concept: R * Physical activity: Benefits a precaution: R V N/R * Mindful eating strategies : distinguishing hunger vs appetite vs emotional eating and savoring food /flavors * Patient Instructions: Practice mindful eating Choose water, fruit/herb infused flavors as you continue to work on reducing sugary beverages Continue working on having 3 scheduled meals and 2 snacks/day , following healthy plate method see 2800 jennifer meal plan for now Coding Level of Care Code Nutr Indiv Intake (12760) Diagnoses Morbid obesity E66.01 Time Spent (min) 30
--- OUTSIDE RECORDS SUMMARY | 2025-01-29 13:50 | XMS_ITS | Data Portability ---
Author Organization [facility], [address] Address [address] [place] [address] Care Team Providers Care Development Geologist Name Role Phone NATALIE ENNIS Thoracic Medicine Physician Assessment No assessment recorded. Plan of Treatment Reminders Order Date Submit Date Provider Last Modified By Organization Details Last Modified Time Details Appointments None recorded. Lab None recorded. Referral None recorded. Procedures None recorded. Surgeries None recorded. Imaging None recorded. Medication Orders prednisone 20 mg tablet 2023 024 [id number], [address] [place], [place], [id number], 4 10:05:22 prednisone 50 mg tablet 2023 024 [id number], [address] [place], [place], [id number], 4 09:48:28 Zithromax Z-Bunny 250 mg tablet 2023 024 [facility][id number], [address] [place], [place], [id number], 4 09:48:32 Tessalon Perles 100 mg capsule 2023 024 [facility][id number], [address] [place], [place], [id number], 4 09:48:34 Patient TargetsNo targets recorded. Patient Instructions Encounter Date Encounter Id Patient Instructions Last Modified By Organization Details Last Modified Time 11/26/2023 [id number] cough: care instructions grant Not available 11/26/2023 08:50:45 02/07/2024 [id number] Follow-up with your doctor if no improvement in 3 days. Seek Emergency Medical evaluation for any worsening symptoms. [email or web address] Not available 02/07/2024 10:05:15 Reason for Referral None Reported. Problems Name Problem SNOMED Code Status Onset Date Resolution Date Notes Provider Name and Address Organization Details Recorded Time Asthma 334716283 Active [place] dc [place] - [facility] 4 08:25:11 Cough 95003814 Active 2023 BELKYS GRAY NP [address], [address], [place] - [facility] 4 08:47:33 Exacerbation of intermittent asthma 041575967 Active 2023 BELKYS GRAY NP [address], [address], [place] - [facility] 4 08:49:41 Problem Notes None recorded. Procedures Surgical History Date Name Laterality Status Provider Name and Address Organization Details Recorded Time 4 Virtual Visit completed Laure Mendoza MD - [facility] 02/07/2024 09:49:27 4 Virtual Visit completed Yulisa Maravilla PA - [facility] 11/26/2023 08:41:07 Imaging Results [...] Updated DateTime 11/26/2023 157.48 cm 62.2 kg/m2 173679.41 g Paris Mckeon MD [facility] [employer] 11/26/2023 08:26:11 Date Recorded Body height Body mass index (BMI) Body weight Provider Name and Address Organization Details Last Updated DateTime 02/07/2024 157.48 cm 62.2 kg/m2 747513.41 g Laure Mendoza [facility] 02/07/2024 09:47:45 Social History Question Answer Notes LastModified by Organizat ion Details LastModified Time Tobacco Smoking Status Never Smoker Laure dc PA [employer] [facility] 02/07/2024 09:48:44 Which Illicit Or Recreational Drugs Have You [...] Smoke? 1 PPW Information not available 11/26/2023 Have You Recently Traveled Abroad? No Information no t available 11/26/2023 Are You Currently In School? No Information not available 11/26/2023 Sex: Unknown Functional Status Question Answer Note LastModified by [employer] ion Details LastModified Time Do you use any illicit or recreational drugs? No [email or web address] Information not available 02/07/2024 Do you or have you ever used any other forms of tobacco or nicotine? No Information not available 11/26/2023 What is your level of alcohol consumption? None Information not available 11/26/2023 Are you currently employed? Yes Information not available 11/26/2023 Mental Status None recorded. Family History Relationship [...] [facility] 11/26/2023 08:25:24 OPV 2 completed [place] Lnida null, PA - [facility] 11/26/2023 08:25:24 Influenza, split virus, trivalent, preservative 2 completed [place] Linda null, [place] - [facility] 11/26/2023 08:25:24 Influenza, split virus, trivalent, preservative 6 completed Parsi Linda null, PA - [facility] 11/26/2023 [...] PA - [facility] 11/26/2023 08:25:24 Novel [id number], preservative-free 9 completed [place] Linda null, PA [...] SNOMED-CT Code Diagnosis ICD10 Code Diagnosis Note [id number] 2099[facility] [address] [address] 10/24/2018 11:21:37 10/24/2018 12:36:[id number] [place] [address] [address] [address] 07/23/2016 11:05:23 07/23/2016 11:27:00 [id number] [address] [place] [address] 06/04/2022 09:34:07 06/04/2022 13:57:[id number] [place] [address] [address] 09/23/2016 11:14:37 09/23/2016 12:37:[id number] [place] [address] [address] 06/27/2018 18:22:51 06/27/2018 19:24:[id number] [place] [address] [address] [address] 07/14/2016 14:01:34 07/14/2016 14:36:[id number] [place] [address] [address] 11/21/2016 18:15:31 11/21/2016 18:51:17 [id number] BELKYS GRAY NP [address] [place] [address] 11/26/2023 08:19:53 11/26/2023 09:04:47 Cough 82520277 R05.9 Exacerbati on of intermittent asthma 751570900 J45.21 [id number] [place] [address] [address] [place] [address] 02/07/2024 09:42:05 02/07/2024 10:06:49 Cough 37686249 R05.9 CoughBlack Elderberry Syrup:1-2 tsp 2-3 times a day for 5 days as needed for coughing.S ambucol Black Elderberry Original Syrup (available at [employer] )Salena Herbs Black Elderberry Syrup, 5.4-Ounce Bottle (available at [employer] or [facility]) Use a cool mist humidifier in the room that you sleep to add moisture to the air, which should soothe the airways and help loosen any mucus that may be present. Exacerbati on of mild persistent asthma 676642727 J45.31 Continue the albuterol nebulizer 3 times a day for 7 days Health Concerns Section Related Observation LastModified by Organization Detai ls LastModified Time None Recorded Concern Status LastModified by Organization Details LastModified Time None Recorded Advance Directives Directive None Recorded Payers Insurance Date Sequence Insurance Name Policy Number Policy [place] Covered Member ID [place] Member ID Guarantor Name 02/07/2024 1 [facility] [id number] Anaralis M Frias [id number] Anaralis Frias 07/08/2022 TE AND NIKOLE [facility] Med Generic (Move To Hold) [[id number]] Anaralis Frias Notes Date Note Type Note [...] BELKYS GRAY NP [address] [place], [address], [place] - [facility] 11/26/2023 09:00:57 02/07/2024 text/html 33 yo female c/o persistent cough x 3 days after smoking cannabis. Hx of Asthma and is using albuterol inhaler and nebulizer intermittently. She states she usually responds to the addition of prednisone. Tmax = 99.2. No ear pian, headache, sore throat, abdo pian, n/v/rash. JEIMY ANAND MD [address] [facility] [address] [place], [address], [place] - [facility] 02/07/2024 10:11:16 OBGyn Episode No OBEpisode recorded.
[2025-01-30 19:28] VITALS: BMI 65.9
== END 2025-01-29 13:19 | disposition home or self-care (01) ==
LOC: HO.ENCR 12:31
PROVIDERS: PCP Physician Assistant Medical; Visit Provider Dietitian, Registered
DX: E66.01 Morbid (severe) obesity due to excess calories (principal)

== ENCOUNTER → 2025-01-29 12:30 | Outpatient (BNVA) | payer OTHER, SELFPAY | PROVIDERS: PCP Physician Assistant Medical; Visit Provider Dietitian, Registered | DX: E66.01 Morbid (severe) obesity due to excess calories (principal); Z68.44 Body mass index [BMI] 60.0-69.9, adult; Z71.3 Dietary counseling and surveillance | CPT/HCPCS: 97802 ==

== ENCOUNTER 2025-03-22 14:57 | Outpatient (AMB) | payer OTHER, SELFPAY ==
--- NOTE | 2025-03-22 15:01 | A.OFFPC_ITS ---
Vital Signs 03/22/25 15:04 Height 5 ft 3 in Weight 375 lb 2 oz BMI 66.4 BP 133/65 Blood Pressure Location Lt brachial Position Sitting Respiration 16 Pulse 93 Pulse Source Pulse Oximeter Temp 99.1 F Temp Source Oral Pulse Oximetry (%) 95 Oxygen Delivery Method Room Air Intake Visit Reasons: follow up Intake Note: patient here for follow up Vine Fruit Farming Supervisor Required: No Is last menstrual period known: Yes Last menstrual period: 03/22/25 Post menopausal: No Patient : No Allergies peanut Allergy (Severe, Verified 03/22/25 15:03) Anaphylaxis tree nut Allergy (Severe, Verified 03/22/25 15:03) Anaphylaxis, HIVE mold Allergy (Verified 03/22/25 15:03) Asthma flare Seasonal Allergies Allergy (Verified 03/22/25 15:03) Runny nose, watery eyes phentermine Adverse Reaction (Intermediate, Verified 03/22/25 15:35) tachycardia Cat dander Allergy (Uncoded 12/07/24 14:38) Itchy eyes, SOB Medication List - Last Reconciled 03/22/25 by MICHELE Kma albuterol sulfate 90 mcg/actuation 2 puffs inhalation Q4H PRN blood pressure kit-extra large As directed budesonide-formoterol 160-4.5 mcg/actuation (Symbicort) 1 inh inhalation BID carvedilol 3.125 mg PO BID empagliflozin (Jardiance) 10 mg PO DAILY epinephrine (EpiPen) 0.3 mg (0.3 mL) IM Q10M PRN fluoxetine 10 mg PO DAILY furosemide 40 mg PO BID 90 days loratadine 10 mg PO DAILY losartan 25 mg PO DAILY potassium chloride ER 20 mEq PO DAILY tirzepatide (weight loss) (Zepbound) 2.5 mg (0.5 mL) subcut QWEEK Tobacco use date assessed: 03/22/25 Dental Screening Dental Screen Date: 03/22/25 Did you have a dental visit in the last 12 months?: No Did you have a dental problem in the last 6 months where you did not have access to dental care?: No Was dental information given to patient?: Yes HPI HPI Comments History of Present Illness Details This is a 34-year-old female with a past medical history of binge eating disorder, depression, obstructive sleep apnea, PCOS, asthma and morbid obesity presenting for follow up. The patient has a history of acute hypoxic respiratory failure with hypercapnia secondary to status asthmaticus that was exacerbated by parainfluenza viral infection and community acquired pneumonia requiring intubation in February 2024. During hospitalization echocardiogram showed left ventricular ejection fraction around 45%, She saw her economic forecaster, Dr. Pollack, yesterday. Echo is scheduled. She added Carvediol 3.125 mg twice daily. She remains on furosemide, losartan, Jardiance. Dr. Shirley is her line prep cook. She is using a BiPAP and uses supplemental oxygen at night. She is on Symbicort and albuterol as needed. She also takes loratadine for allergies. She quit smoking cigarettes following hospitalization. Denies interval exacerbations. She is on Prozac for depression which works well. She is seeing a holistic therapist. Obesity is an ongoing discussion. She is agreeable to trying a glp-1 now. She is not interested in bariatric surgery. She has been obese her entire life. She recognizes how this impacts her health. She tried seeing a director of corporate communications. She tried exercising 4-5 days per week. She continues to swim. She tried low carb. ROS: Constitutional: No unexplained weight loss, fever, chills, fatigue or night sweats.. Respiratory: No shortness of breath, cough or sputum production. Cardiovascular: No chest pain, chest pressure or chest discomfort. No palpitations. Stable pedal edema. Gastrointestinal: No anorexia, nausea, vomiting or diarrhea. No abdominal pain or blood in stool. Neurologic: No headache, dizziness, syncope Endocrine: No cold or heat intolerance. No polyuria or polydipsia. Psychiatric: No SI or HI. Physical exam: Constitutional: Alert, in no distress. Neck: Supple, Full range of motion. No lymphadenopathy. No palpable thyroid masses. Respiratory: Clear to auscultation. Cardiovascular: S1 S2 regular. No murmurs. Extremities: Warm and well perfused. No clubbing, cyanosis. 1+ lower extremity edema bilaterally. Intact peripheral pulses. Psychiatric: Normal mood and affect [facility] Medical History (Updated 12/14/24 @ 21:43 by MICHELE Kam) Anemia Routine physical examination Asthma exacerbation Morbid obesity Asthma MARJORIE on CPAP MARJORIE (obstructive sleep apnea) Major depressive disorder Severe obesity KAMILA (acute kidney injury) History of fluid overload Cardiomyopathy CAP (community acquired pneumonia) Respiratory failure with hypoxia and hypercapnia Surgical History (Updated 09/10/21 @ 13:00 by Franchesca España CMA) Hx of tonsillectomy Family History Mother Lupus Psoriasis Kidney stone Asthma Allergies Father Thyroid condition Asthma Addiction Hypertension Stroke Brother ADHD Brother Autism Brother Obesity Brother Obesity Sister Obesity Social History (Updated 12/07/24 @ 14:41 by Suyapa Sy MA) Housing: Apartment Alcohol intake: current Alcohol intake frequency: holidays/special occasions only Patient Tobacco Use Status: Former Tobacco user Cigarettes Per Day: 5 Years Smoked: 10 e-Cigarette/Vaping Use: Never Used Second Hand Smoke Exposure: No Substance Use Type: Marijuana service: No Current occupational status: employed 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) Cognitive needs: No Hearing needs: No Vision needs: No Female Reproductive History Menstrual Date of last menstrual period: 03/22/25 Questionnaire Thrive Questionnaire Date Thrive assessed: 12/07/24 I am a: Patient What is your living situation today?: I have a steady place to live Within the past 12 months, did the food you bought not last and you didn't have the money to get more?: Never true Within the past 12 months, did you worry whether your food would run out before you got money to buy more?: Never true Do you have trouble paying for medicines?: No Do you have trouble getting transportation to medical appointments?: No Do you have trouble paying your heating and electricity bill?: No Do you have trouble taking care of your child, family member or friend?: No Do you have trouble with day-to-day activities such as bathing, preparing meals, shopping, managing finances, etc.?: No Are you currently unemployed and looking for a job?: No Are you interested in more education?: No Please select the resources that you would like help with: None Currently or been in a relationship where the following occur: No concerns reported THRIVE Score: 0 CONOR-7 AMB Questionnaire CONOR-7 Date CONOR - 7 assessed: 12/07/24 Source: Developed by Drs. Casey Samuel, Diane Doyle, Surya James and colleagues, with an educational newton from [employer]. Physical exam (Primary Care) Vital Signs: Last Vital Signs Temp 99.1 F 03/22/25 15:04 Pulse 93 03/22/25 15:04 Resp 16 03/22/25 15:04 BP 133/65 03/22/25 15:04 Pulse Ox 95 03/22/25 15:04 Oxygen Delivery Method Room Air 03/22/25 15:04 BMI result Body Mass Index 66.4 Tobacco/Smoking Status: Tobacco use Status Tobacco use date assessed 03/22/25 03/22/25 15:08 Patient Tobacco Use Status Former Tobacco user 03/22/25 15:03 e-Cigarette/Vaping Use Never Used 03/22/25 15:03 Thrive Assessment: Date of Thrive Assessment Date Thrive assessed 12/07/24 03/22/25 15:03 Currently or been in a relationship where the following occur: No concerns r eported Coding Level of Care Code Est Pt Level 4 (28882) Complex EM visit Add On G2211 Diagnoses MARJORIE (obstructive sleep apnea) G47.33 Morbid obesity E66.01 Mild persistent asthma without complication J45.30 Asthma complication type: uncomplicated Asthma persistence: persistent Asthma severity: mild Cardiomyopathy, unspecified type I42.9 Cardiomyopathy type: unspecified Episode of recurrent major depressive disorder, unspecified depression episode severity F33.9 Active/Remission status: currently active Major depression episode severity: unspecified Major depression recurrence: recurrent Assessment & Plan Assessment & Plan (1) MARJORIE (obstructive sleep apnea): Code(s): G47.33 - Obstructive sleep apnea (adult) (pediatric) Category: Medical (2) Morbid obesity: Code(s): E66.01 - Morbid (severe) obesity due to excess calories Category: Medical (3) Asthma: Code(s): J45.909 - Unspecified asthma, uncomplicated Category: Medical Qualifiers: Asthma complication type: uncomplicated Asthma persistence: persistent Asthma severity: mild Qualified Code(s): J45.30 - Mild persistent asthma, uncomplicated (4) Cardiomyopathy: Code(s): I42.9 - Cardiomyopathy, unspecified Category: Medical Qualifiers: Cardiomyopathy type: unspecified Qualified Code(s): I42.9 - Cardiomyopathy, unspecified (5) Major depressive disorder: Code(s): F32.9 - Major depressive disorder, single episode, unspecified Category: Medical Qualifiers: Active/Remission status: currently active Major depression episode severity: unspecified Major depression recurrence: recurrent Qualified Code(s): F33.9 - Major depressive disorder, recurrent, unspecified Plan The patient and I discussed the impact of morbid obesity on her medical conditions. She has MARJORIE and hypoxia requiring supplemental oxygen and bipap, she has cardiomyopathy and asthma. She sees a therapist and has seen a director of corporate communications and attempted lifestyle modifications unsuccessfully. She declines referral to bariatric surgery. She is not a candidate for phentermine given cardiovascular disease. She declines contraindications to GLP 1. Reviewed potenial SEs. Prescribed Zepbound. PA required. Continue all other medications and follow up with specialists. Follow up 4 weeks after starting medication for a med check. Medications: New tirzepatide (weight loss) (Zepbound) for 4 weeks 2.5 mg (0.5 mL) subcut QWEEK 2 mL 0RF
[2025-03-22 15:04] VITALS: BP 133/65; PULSE 93; RESP 16; TEMP 37.3; O2SAT 95; BMI 66.4
--- OUTSIDE RECORDS SUMMARY | 2025-03-22 15:33 | XMS_ITS | Clinical Summary ---
Author Organization [facility] [address] [place] [address] [place] [phone] Phone Care Team Providers Care Salvage Mechanic Name Role Phone Vika Bustamante MD Primary Care Provider [phone] Allergies Active Allergy Reactions Criticality Noted Date [...] Obstructive sleep apnea 08/27/2011 Overview (05/19/2024): [facility] Home sleep test 09/25/2021; weight 350; BMI 64. AHI 37, AI 2; HI 35. 14 obstructive apneas and 254 hypopneas. Average oxygen saturation 81% and oxygen jenni 63%. Obstructive sleep apnea severe with nocturnal hypoxemia; mostly hypopneas with nocturnal hypoxemia based on 2021 home sleep test. History of ETOH abuse 07/15/2011 Asthma 11/30/2005 Immunizations Name Administration Dates Next Due DTP 03/30/1997, 4,1992,08/14,1992 [id number] (Pentacel) 2mo to less than 5yo 07/09/1993,1992,1992,06/12 [...] ADENOIDECTOMY, BILATERAL MYRINGOTOMY AND TUBES 01/07/1999 PROCEDURE: [place] TONSILLECTOMY & ADENOIDECTOMY <AGE 12 WISDOM TOOTH EXTRACTION PROCEDURE: HISTORICAL WISDOM TEETH EXTRACTION Medical History Medical History Date Comments Unspecified otitis media DX:Unsp ecified otitis media Other atopic dermatitis and related conditions DX:Other atopic dermatitis a nd related conditions Unspecified asthma(493.90) DX:Un specified asthma(493.90) Obesity, unspecified DX:Obesity, unspecified; 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[facility] History of ETOH abuse 07/15/2011 DX:History [...] 5 Years) and At-Risk Patients (6 to 49 Years) (2 of 2 - PCV) 06/05/2012 06/05/2011 DTaP,Tdap,and Td Vaccines (8 - Td or Tdap) 07/08/2019 07/08/2009, 05/05/2004, 03/30/1997, Additional history exists Social Influencers of Health Screening 07/18/2022 COVID-19 Vaccine ( season) 2024 09/11/2021, 08/14/2021 Depression Screening 08/09/2024 Influenza Vaccine (#1) 2025 , 07/18/2020, 08/22/2019, Additional history exists Cholesterol Screening [...] Procedure Name Priority Date/Time Associated Diagnosis Comments HEPATITIS C ANTIBODY Routine 10/06/2024 11:17 AM EST Screen for STD (sexually transmitted disease) HIV 1, 2 ANTIBODY, P24 ANTIGEN WITH REFLEX TO DIFFERENTIATION Routine 10/06/2024 11:17 AM EST Screen for STD (sexually transmitted disease) HM HPV Routine 09/01/2023 LIPID PANEL Routine 09/15/2022 from Last 3 Months or Most Recently Relevant to Health Maintenance Results * Hepatitis C antibody (10/06/2024 11:17 AM EST) [facility] Hepatitis C Antibody Negative Negative LAB CHEMISTRY METHOD 10/06/2024 5:56 PM EST [facility] Blood Venous blood specimen / Unknown Venipuncture / Unknown 10/06/2024 11:17 AM EST 10/06/2024 11:17 AM EST Catherine Gamboa [facility] LAB BLOOD ORDERABLES Final Res ult [facility] [address] [place] [address], [place] [phone] * HIV 1,2 antibody, p24 antigen with reflex to differentiation (10/06/2024 11:17 AM EST) [facility] HIV Combo AB/AG Negative Negative LAB CHEMISTRY METHOD 10/06/2024 5:57 PM EST [facility] Blood Venous blood specimen / Unknown Venipuncture / Unknown 10/06/2024 11:17 AM EST 10/06/2024 11:17 AM EST Narrative [facility] - 10/06/2024 5:57 PM EST This assay is a 4th generation assay allowing for earlier detection of HIV infection by detecting the presence of the HIV-1 p24 antigen as well as the traditional antibodies to HIV type 1 (including group O) and type 2. Use of a 4th generation assay is the current CDC recommendation for HIV screening. Catherine [facility] LAB BLOOD ORDERABLES Final Res ult Performing Organization Address City/[facility]/ZIP Co de Phone Number [facility] [address] [place] [address], [place] [phone] * Cervical Cancer Screening: HPV (09/01/2023) [facility] Cervical Cancer Screening: HPV Negative, Abstracted Historical Provider HEALTH MAINTENANCE Final Result * (ABNORMAL) Lipid panel (09/15/2022) LDL/HDL Ratio 5(A) 0 - 4 Triglycerides 101 0 - 150 mg/dL Cholesterol 179 0 - 200 mg/dL HDL 40 >=40 mg/dL LDL Cholesterol 119(A) 0 - 100 mg/dL Blood Venous blood specimen / Unknown Historical Provider LAB BLOOD ORDERABLES Giselle l Result from Last 3 Months or Most Recently Relevant to Health Maintenance Insurance [facility] [phone] Care Teams Salvage Mechanic Relationship Specialty Start Date End Date Vika Bustamante MD [address] [place] [id number] PCP - General Internal Medicine 10/05/24
== END 2025-03-22 15:38 | disposition home or self-care (01) ==
LOC: HO.HMCFM 14:58
PROVIDERS: PCP Physician Assistant Medical; Visit Provider Physician Assistant Medical
DX: G47.33 Obstructive sleep apnea (adult) (pediatric) (principal); E66.01 Morbid (severe) obesity due to excess calories; I42.9 Cardiomyopathy, unspecified; Z68.44 Body mass index [BMI] 60.0-69.9, adult; J45.30 Mild persistent asthma, uncomplicated; F33.9 Major depressive disorder, recurrent, unspecified

== ENCOUNTER 2025-04-25 09:34 | Outpatient (REF) | payer OTHER, SELFPAY ==
[2025-04-25 11:17] LABS: MANUAL DIFF FLAG NO
[2025-04-25 11:19] LABS: Hematocrit 34.9 % (37.0-47.0); Hemoglobin 10.8 g/dl (12.0-16.0); Imm Gran Abs Auto 0.03 X10*3/uL (0.00-0.03); Imm Gran Pct Auto 0.4 % (0.0-0.4); Lymphocytes Absolute Auto 1.7 X10*3/uL (1.2-4.9); Mean Corpuscular HGB Conc 30.9 g/dl (31.0-35.0); Mean Corpuscular Hemoglobin 26.5 pg (27.0-33.0); Mean Corpuscular Volume 85.7 fL (80.0-98.0); NRBC Abs Auto 0.000 X10*3/uL (0.0-0.012); NRBC Pct Auto 0.0 /100WBC (0.0-0.2); Platelet Count 284 X10*3/uL (160-400); Red Blood Count 4.07 X10*6/uL (4.20-5.50); White Blood Count 7.0 X10*3/uL (4.8-10.8)
[2025-04-25 11:42] LABS: Iron 48 mcg/dL (30-160); Percent Iron Saturation 20 % (15-50); Total Iron Binding Capacity 243 mcg/dL (228-428); Unsaturated Iron Binding 195 ug/dL
[2025-04-25 11:56] LABS: Ferritin 50 ng/mL (10-122)
[2025-04-25 12:10] LABS: Folate 7.8 ng/mL (> or = 4.0); Vitamin B12 319 pg/mL (200-900)
== END 2025-04-25 09:35 | disposition home or self-care (01) ==
LOC: HO.WFDLDS 09:34
PROVIDERS: PCP Physician Assistant Medical; Visit Provider Physician Assistant
DX: D64.9 Anemia, unspecified (principal); E66.01 Morbid (severe) obesity due to excess calories; F33.9 Major depressive disorder, recurrent, unspecified; Z68.44 Body mass index [BMI] 60.0-69.9, adult
CPT/HCPCS: 36415; 82607; 82728; 82746; 83540; 85025

== ENCOUNTER 2025-04-25 09:34 | Outpatient (AMB) | payer OTHER, SELFPAY ==
--- NOTE | 2025-04-25 09:48 | MHC.PC.OV ---
Vital Signs 04/25/25 09:52 Height 5 ft 3 in Weight 359 lb BMI 63.6 BP 133/60 Blood Pressure Location Lt brachial Position Sitting Respiration 16 Pulse 76 Pulse Source Pulse Oximeter Temp 98.3 F Temp Source Oral Intake Visit Reasons: med check Intake Note: Medication follow up Senior Clinical Consultant Required: No Allergies peanut Allergy (Severe, Verified 04/25/25 09:51) Anaphylaxis tree nut Allergy (Severe, Verified 04/25/25 09:51) Anaphylaxis, HIVE mold Allergy (Verified 04/25/25 09:51) Asthma flare Seasonal Allergies Allergy (Verified 04/25/25 09:51) Runny nose, watery eyes phentermine Adverse Reaction (Intermediate, Verified 04/25/25 09:51) tachycardia Cat dander Allergy (Uncoded 04/25/25 09:51) Itchy eyes, SOB Medication List - Last Reconciled 04/25/25 by Ese Cordero PA-C albuterol sulfate 90 mcg/actuation 2 puffs inhalation Q4H PRN blood pressure kit-extra large As directed budesonide-formoterol 160-4.5 mcg/actuation (Symbicort) 1 inh inhalation BID carvedilol 3.125 mg PO BID empagliflozin (Jardiance) 10 mg PO DAILY epinephrine (EpiPen) 0.3 mg (0.3 mL) IM Q10M PRN fluoxetine 10 mg PO DAILY furosemide 40 mg PO BID 90 days loratadine 10 mg PO DAILY losartan 25 mg PO DAILY potassium chloride ER 20 mEq PO DAILY tirzepatide (weight loss) (Zepbound) 5 mg (0.5 mL) subcut QWEEK Tobacco use date assessed: 03/22/25 Dental Screening Dental Screen Date: 03/22/25 HPI med check HPI Details Patient is a 35-year-old female who presents today for a med check. General: She is doing very well with the Zepbound 2.5 mg weekly. She states that it is very effective and she is down 15 lb. No adverse effects. She would like to go up on this. She is also using my fitness pal to track her diet. She says that she has being very careful and strict. Psych: No mood changes since starting Zepbound. Doing well on the Prozac 10 mg. CV: Blood pressure today in the office is 133/60. She is on carvedilol 3.125 mg b.i.d., furosemide 40 mg b.i.d., losartan 25 mg daily, Jardiance 10 mg daily and compliant with the potassium daily [facility] Medical History (Updated 12/14/24 @ 21:43 by MICHELE Kam) Anemia Routine physical examination Asthma exacerbation Morbid obesity Asthma MARJORIE on CPAP MARJORIE (obstructive sleep apnea) Major depressive disorder Severe obesity KAMILA (acute kidney injury) History of fluid overload Cardiomyopathy CAP (community acquired pneumonia) Respiratory failure with hypoxia and hypercapnia Surgical History (Updated 09/10/21 @ 13:00 by Franchesca España CMA) Hx of tonsillectomy Family History Mother Lupus Psoriasis Kidney stone Asthma Allergies Father Thyroid condition Asthma Addiction Hypertension Stroke Brother ADHD Brother Autism Brother Obesity Brother Obesity Sister Obesity Social History (Updated 12/07/24 @ 14:41 by Suyapa Sy MA) Housing: Apartment Alcohol intake: current Alcohol intake frequency: holidays/special occasions only Patient Tobacco Use Status: Former Tobacco user Cigarettes Per Day: 5 Years Smoked: 10 e-Cigarette/Vaping Use: Never Used Second Hand Smoke Exposure: No Substance Use Type: Marijuana service: No Current occupational status: employed 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) Cognitive needs: No Hearing needs: No Vision needs: No Questionnaire Thrive Questionnaire Date Thrive assessed: 12/07/24 I am a: Patient What is your living situation today?: I have a steady place to live Within the past 12 months, did the food you bought not last and you didn't have the money to get more?: Never true Within the past 12 months, did you worry whether your food would run out before you got money to buy more?: Never true Do you have trouble paying for medicines?: No Do you have trouble getting transportation to medical appointments?: No Do you have trouble paying your heating and electricity bill?: No Do you have trouble taking care of your child, family member or friend?: No Do you have trouble with day-to-day activities such as bathing, preparing meals, shopping, managing finances, etc.?: No Are you currently unemployed and looking for a job?: No Are you interested in more education?: No Please select the resources that you would like help with: None Currently or been in a relationship where the following occur: No concerns reported THRIVE Score: 0 CONOR-7 AMB Questionnaire CONOR-7 Date CONOR - 7 assessed: 12/07/24 Source: Developed by Drs. Casey Samuel, Diane Doyle, Surya James and colleagues, with an educational newton from [employer]. Physical exam (Primary Care) Vital Signs: Last Vital Signs Temp 98.3 F 04/25/25 09:52 Pulse 76 04/25/25 09:52 Resp 16 04/25/25 09:52 BP 133/60 04/25/25 09:52 BMI result Body Mass Index 63.6 Tobacco/Smoking Status: Tobacco use Status Tobacco use date assessed 03/22/25 04/25/25 09:49 Patient Tobacco Use Status Former Tobacco user 04/25/25 09:49 e-Cigarette/Vaping Use Never Used 04/25/25 09:49 Thrive Assessment: Date of Thrive Assessment Date Thrive assessed 12/07/24 04/25/25 09:49 Currently or been in a relationship where the following occur: No concerns reported Const Orientation/consciousness: patient oriented x3 HENMT Ears: hearing grossly normal bilaterally Neck Thyroid: Thyroid normal Lymphatic: no lymphadenopathy noted Resp Auscultation: clear to auscultation bilaterally Cardio Rate: regular rate Rhythm: regular rhythm Heart sounds: S1 normal heart sound present and S2 normal heart sound present GI Inspection: Yes normal to inspection Palpation (GI): Soft to palpation and Other GI palpation findings present (nontender, no cva tenderness) Auscultation: normoactive bowel sounds Rectal Exam - Female: deferred Skin General skin exam: no rashes or lesions noted Neuro General: patient oriented x3, gait normal and no focal motor deficits Coding Level of Care Code Est Pt Level 4 (95455) Complex EM visit Add On G2211 Diagnoses Morbid obesity E66.01 Anemia D64.9 Episode of recurrent major depressive disorder, unspecified depression episode severity F33.9 Major depression recurrence: recurrent Active/Remission status: currently active Major depression episode severity: unspecified Assessment & Plan Assessment & Plan (1) Morbid obesity: Code(s): E66.01 - Morbid (severe) obesity due to excess calories Category: Medical Plan: doing well on zepbound we increased dosage today (2) Anemia: Code(s): D64.9 - Anemia, unspecified Category: Medical Plan: reminded to get labs (3) Major depressive disorder: Code(s): F32.9 - Major depressive disorder, single episode, unspecified Category: Medical Qualifiers: Major depression recurrence: recurrent Active/Remission status: currently active Major depression episode severity: unspecified Qualified Code(s): F33.9 - Major depressive disorder, recurrent, unspecified Plan: stable and well controlled with prozac Medications: New tirzepatide (weight loss) (Zepbound) 5 mg (0.5 mL) subcut QWEEK 2 mL 3RF Discontinued tirzepatide (weight loss) (Zepbound) for 4 weeks Discontinued Reason: Doctor's Order 2.5 mg (0.5 mL) subcut QWEEK 2 mL 0RF
[2025-04-25 09:52] VITALS: BP 133/60; PULSE 76; RESP 16; TEMP 36.8; BMI 63.6
--- OUTSIDE RECORDS SUMMARY | 2025-04-25 11:21 | XMS_ITS | Clinical Summary ---
Author Organization [facility] [address] [place] [address] [place] [phone] Phone Care Team Providers Care Piping Engineer Name Role Phone Vika Bustamante MD Primary Care Provider [phone] Allergies Active Allergy Reactions Criticality Noted Date [...] 10/28/2012 Obstructive sleep apnea 08/27/2011 Overview (05/19/2024): [facility] Home sleep test 09/25/2021; weight 350; BMI 64. AHI 37, AI 2; HI 35. 14 obstructive apneas and 254 hypopneas. Average oxygen saturation 81% and oxygen jenni 63%. Obstructive sleep apnea severe with nocturnal hypoxemia; mostly hypopneas with nocturnal hypoxemia based on 2021 home sleep test. History of ETOH abuse 07/15/2011 Asthma 11/30/2005 Immunizations Name Administration Dates Next Due DTP 03/30/1997, 4,1992,08/14,1992 [id number] (Pentacel) 2mo to less than 5yo 07/09/1993,1992,1992,06/12 [...] ADENOIDECTOMY, BILATERAL MYRINGOTOMY AND TUBES 01/07/1999 PROCEDURE: [place] TONSILLECTOMY & ADENOIDECTOMY <AGE 12 WISDOM TOOTH EXTRACTION PROCEDURE: HISTORICAL WISDOM TEETH EXTRACTION Medical History Medical History Date Comments Unspecified otitis media DX:Unsp ecified otitis media Other atopic dermatitis and related conditions DX:Other atopic dermatitis a nd related conditions Unspecified asthma(493.90) DX:Un specified asthma(493.90) Obesity, unspecified DX:Obesity, unspecified; 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[facility] History of ETOH abuse 07/15/2011 DX:History [...] exists Social Influencers of Health Screening 07/18/2022 Depression Screening 08/09/2024 COVID-19 Vaccine (3 - 5-26 season) 2025 09/11/2021, 08/14/2021 Influenza Vaccine (#1) 2025 , 07/18/2020, 08/22/2019, [...] Hepatitis C antibody (10/06/2024 11:17 AM EST) [facility] [address] Hepatitis C Antibody Negative Negative LAB CHEMISTRY METHOD 10/06/2024 5:56 PM EST [facility] Blood Venous blood specimen / Unknown Venipuncture / Unknown 10/06/2024 11:17 AM EST 10/06/2024 11:17 AM EST Catherine Santos [facility] BLOOD ORDERABLES Final Res ult [facility] [address] [place] [address], [place] [phone] * HIV 1,2 antibody, p24 antigen with reflex to differentiation (10/06/2024 11:17 AM EST) [facility] [address] HIV Combo AB/AG Negative Negative LAB CHEMISTRY METHOD 10/06/2024 5:57 PM EST [facility] Blood Venous blood specimen / Unknown Venipuncture / Unknown 10/06/2024 11:17 AM EST 10/06/2024 11:17 AM EST Narrative [facility] - 10/06/2024 5:57 PM EST This assay is a 4th generation assay allowing for earlier detection of HIV infection by detecting the presence of the HIV-1 p24 antigen as well as the traditional antibodies to HIV type 1 (including group O) and type 2. Use of a 4th generation assay is the current CDC recommendation for HIV screening. Catherine Gamboa Santos [facility] BLOOD ORDERABLES Final Res ult Performing Organization Address City/[facility]/ZIP Co de Phone Number [facility] [address] [place] [address], [place] [phone] * Cervical Cancer Screening: HPV (09/01/2023) [facility] Cervical Cancer Screening: HPV Negative, [...] Most Recently Relevant to Health Maintenance [facility] [id number] Care Teams Piping Engineer Relationship Specialty Start Date End Date Vika Bustamante MD [address] [place] [address] [address] [place] [address] PCP - General Internal Medicine 10/05/24
== END 2025-04-25 10:16 | disposition home or self-care (01) ==
LOC: HO.HMCFM 09:35
PROVIDERS: PCP Physician Assistant Medical; Visit Provider Physician Assistant
DX: D64.9 Anemia, unspecified (principal); E66.01 Morbid (severe) obesity due to excess calories; Z68.44 Body mass index [BMI] 60.0-69.9, adult; F33.9 Major depressive disorder, recurrent, unspecified

== ENCOUNTER 2025-05-14 09:31 | Outpatient (AMB) | payer OTHER, SELFPAY ==
[2025-05-14 09:44] VITALS: BMI 61.2
--- NOTE | 2025-05-14 09:44 | A.OFFVIS_ITS ---
VS Expanded 05/14/25 09:44 05/24/25 13:23 Height 5 ft 3 in 5 ft 3 in Weight 345 lb 10.957 oz 346 lb BMI 61.2 61.3 Intake Visit Reasons: obesity Allergies peanut Allergy (Severe, Verified 04/25/25 09:51) Anaphylaxis tree nut Allergy (Severe, Verified 04/25/25 09:51) Anaphylaxis, HIVE mold Allergy (Verified 04/25/25 09:51) Asthma flare Seasonal Allergies Allergy (Verified 04/25/25 09:51) Runny nose, watery eyes phentermine Adverse Reaction (Intermediate, Verified 04/25/25 09:51) tachycardia Cat dander Allergy (Uncoded 04/25/25 09:51) Itchy eyes, SOB Nutrition Presentation Details: Pt presents for MNT follow up for obesity Pt on zepbound 5mg/wk Pt has hx of binge eating disorder, Pt repors having episodes on nausea in AM , denies vomitng pt reports working on lowering sugars, and working on choosing healthier meals Pt is motivated B: boiled eggs, smoothies (berries/yogurt/banana/low fat mil) L sandwich (ham/cheese) water or juice dinner: protein/veg/rice tracking steps working toward 29424 /day fluids: water, juice, reducing on sodas fried foods 1-2 z/wk physical activity: ADL etoh/smoking- denies BS Monitoring Most Recent Diabetes Results: Cholesterol, (<200) 166 mg/dL 12/12/24 HDL Cholesterol, (>40) 45 mg/dL 12/12/24 Triglycerides, (<150) 104 mg/dL 12/12/24 Creatinine, (0.5-1.4) 0.92 mg/dL 12/12/24 BUN, (9-16) 25 mg/dL H 12/12/24 Sodium, (135-145) 140 mmol/L 12/12/24 Potassium, (3.3-5.1) 4.3 mmol/L 12/12/24 Chloride, (96-108) 102 mmol/L 12/12/24 Carbon Dioxide, (22-29) 30 mmol/L H 12/12/24 Calcium, (8.4-10.2) 9.5 mg/dL 12/12/24 AST, (5-31) 23 U/L 12/12/24 ALT, (0-31) 20 U/L 12/12/24 Total Protein, (6.5-8.0) 7.5 g/dL 12/12/24 Albumin, (3.5-5.0) 4.1 g/dL 12/12/24 IZN-Vbnqyfu-Xh.Jeor Equation Height: 5 ft 3 in Weight: 346 lb Resting Metabolic Rate: 2244.63 Calculated Activity Level: Sedentary Calories Needed to Maintain Weight: 2693.56 Diagnosis Nutrition problem #1: food nutri know defi As related to (etiology) #1: diagnosis As evidenced by (sign/symptom) #1: knowledge deficit of diet PFSH Medical History (Updated 12/14/24 @ 21:43 by MICHELE Kam) Anemia Routine physical examination Asthma exacerbation Morbid obesity Asthma MARJORIE on CPAP MARJORIE (obstructive sleep apnea) Major depressive disorder Severe obesity KAMILA (acute kidney injury) History of fluid overload Cardiomyopathy CAP (community acquired pneumonia) Respiratory failure with hypoxia and hypercapnia Surgical History (Updated 09/10/21 @ 13:00 by Franchesca España CMA) Hx of tonsillectomy Family History Mother Lupus Psoriasis Kidney stone Asthma Allergies Father Thyroid condition Asthma Addiction Hypertension Stroke Brother ADHD Brother Autism Brother Obesity Brother Obesity Sister Obesity Social History (Updated 12/07/24 @ 14:41 by Suyapa Sy MA) Housing: Apartment Alcohol intake: current Alcohol intake frequency: holidays/special occasions only Patient Tobacco Use Status: Former Tobacco user Cigarettes Per Day: 5 Years Smoked: 10 e-Cigarette/Vaping Use: Never Used Second Hand Smoke Exposure: No Substance Use Type: Marijuana service: No Current occupational status: employed 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) Cognitive needs: No Hearing needs: No Vision needs: No Assessment & Plan Assessment & Plan (1) Morbid obesity: Code(s): E66.01 - Morbid (severe) obesity due to excess calories Category: Medical Plan: Wt: 169 kg Kg ( 01/31 ) 157 kg (06/02)- on zepbound titrated to 5mg/wk Est kcal needs as per MSJ: 2700 (40% carb, 30% protein/fat) Est fluid needs as per 25-30 ml/d: 4700 Est prot per day as per 1 g/kg bw: 160 Recommend fiber intake : 8-10 g per day and gradually increase to 25-28 g per day for women and 35-38 g for men or as tolerated Recommend sodium intake per day : less than 2300 mg Educated patient on: ( R = reviewed V = verbalizes understanding N/R = needs review N/A = not applicable * Food sources of carbohydrate, adequate serving sizes and its role in various health conditions: R V N/R * Differences between complex carbohydrates a simple carbohydrates, role of fiber in diet: R * Lean protein sources of foods: R * Differences between types of fats and role in diet (mono on saturated fat fatty acids, saturated fatty acids, trans fats): R * Food sources of sodium in salt and healthy modifications for heart health in kidney health: R V R/V * Vitamins and minerals: R V N/R * Healthy plate method concept: R * Physical activity: Benefits a precaution: R * Mindful eating strategies : distinguishing hunger vs appetite vs emotional eating and savoring food /flavors * Patient Instructions: Work on having scheduled meal (3/da and 1-2 snacks per day - keepin a schedule Work on choosing low fat food options (steam/baked poultry, fish , starches steamed, baked not fried, lightly on cheese, lightly on sauces) Chew foods well prior to swallowing Coding Level of Care Code Nutr Indiv Subseq (40272) Diagnoses Morbid obesity E66.01 Time Spent (min) 30
--- OUTSIDE RECORDS SUMMARY | 2025-05-14 10:51 | XMS_ITS | Clinical Summary ---
Author Organization [facility] [address] [place] [address] [place] [phone] Phone Care Team Providers Care Grape Pruner Name Role Phone Vika Bustamante MD Primary Care Provider [phone] Allergies Active Allergy Reactions Criticality Noted Date [...] 10/28/2012 Obstructive sleep apnea 08/27/2011 Overview (05/19/2024): [facility] Home sleep test 09/25/2021; weight 350; BMI 64. AHI 37, AI 2; HI 35. 14 obstructive apneas and 254 hypopneas. Average oxygen saturation 81% and oxygen jenni 63%. Obstructive sleep apnea severe with nocturnal hypoxemia; mostly hypopneas with nocturnal hypoxemia based on 2021 home sleep test. History of ETOH abuse 07/15/2011 Asthma 11/30/2005 Immunizations Immunization Administration Dates Next Due DTP 03/30/1997, 4,1992,08/14,1992 [id number] (Pentacel) 2mo to less than 5yo 07/09/1993,1992,1992,06/12 [...] ADENOIDECTOMY, BILATERAL MYRINGOTOMY AND TUBES 01/07/1999 PROCEDURE: [place] TONSILLECTOMY & ADENOIDECTOMY <AGE 14 WISDOM TOOTH EXTRACTION PROCEDURE: HISTORICAL WISDOM TEETH EXTRACTION Medical History Medical History Date Comments Unspecified otitis media DX:Unsp ecified otitis media Other atopic dermatitis and related conditions DX:Other atopic dermatitis a nd related conditions Unspecified asthma(493.90) DX:Un specified asthma(493.90) Obesity, unspecified DX:Obesity, unspecified; 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 [facility] History of ETOH abuse 07/15/2011 DX:History of [...] 09/15/2022 Cervical Cancer Screening: HPV 09/01/2028 09/01/2023 RSV Immunization Adult Patients (1 - 1-dose 75+ series) 2067 Hepatitis B Vaccines Completed 04/16/1993, 1992, 1992 [...] Hepatitis C antibody (10/06/2024 11:17 AM EST) [facility] Hepatitis C Antibody Negative Negative LAB CHEMISTRY METHOD 10/06/2024 5:56 PM EST [facility] Blood Venous blood specimen / Unknown Venipuncture / Unknown 10/06/2024 11:17 AM EST 10/06/2024 11:17 AM EST Catherine Santos [facility] LAB BLOOD ORDERABLES Final Res ult [facility] [address] [place] [address], [place] [phone] * HIV 1,2 antibody, p24 antigen with reflex to differentiation (10/06/2024 11:17 AM EST) [facility] HIV Combo AB/AG Negative Negative LAB CHEMISTRY METHOD 10/06/2024 5:57 PM EST [facility] Blood Venous blood specimen [...] the current CDC recommendation for HIV screening. us Catherine AGGARWAL LAB BLOOD ORDERABLES Final Res ult [facility] [address] [place] [address], [place] [phone] * Cervical Cancer Screening: HPV (09/01/2023) [facility] Cervical Cancer Screening: HPV Negative, Abstracted Historical Provider HEALTH MAINTENANCE Final Result * (ABNORMAL) Lipid panel (09/15/2022) LDL/HDL Ratio 5(A) 0 - 4 Triglycerides 101 0 - 150 mg/dL Cholesterol 179 0 - 200 mg/dL HDL 40 >=40 mg/dL LDL Cholesterol 119(A) 0 - 100 mg/dL Blood Venous blood specimen / Unknown us Historical Provider LAB BLOOD ORDERABLES Giselle l Result from Last 3 Months or Most Recently Relevant to Health Maintenance Insurance [facility] Care Teams Grape Pruner Relationship Specialty Start Date End Date Vika Bustamante MD [address] [place] [address] [address] [place] [address] PCP - General Internal Medicine 10/05/24
[2025-05-24 13:23] VITALS: BMI 61.3
== END 2025-05-14 10:12 | disposition home or self-care (01) ==
LOC: HO.ENCR 09:31
PROVIDERS: PCP Physician Assistant Medical; Visit Provider Dietitian, Registered
DX: E66.01 Morbid (severe) obesity due to excess calories (principal)

== ENCOUNTER → 2025-05-14 09:31 | Outpatient (BNVA) | payer OTHER, SELFPAY | PROVIDERS: PCP Physician Assistant Medical; Visit Provider Dietitian, Registered | DX: E66.01 Morbid (severe) obesity due to excess calories (principal); Z68.44 Body mass index [BMI] 60.0-69.9, adult | CPT/HCPCS: 97803 ==

== ENCOUNTER → 2025-07-09 14:00 | Outpatient (BNV) | payer OTHER, SELFPAY | PROVIDERS: PCP Physician Assistant Medical; Referring Provider Physician Assistant Medical; Visit Provider Nurse Practitioner Family | DX: D50.9 Iron deficiency anemia, unspecified (principal); R74.02 Elevation of levels of lactic acid dehydrogenase [LDH] | CPT/HCPCS: 99204 ==

== ENCOUNTER 2025-07-26 09:16 | Outpatient (AMB) | payer OTHER, SELFPAY ==
--- NOTE | 2025-07-26 09:20 | A.OFFPC_ITS ---
Vital Signs 07/26/25 09:26 Height 5 ft 2 in Weight 344 lb 6 oz BMI 63.0 BP 128/72 Blood Pressure Location Lt radial Position Sitting Respiration 16 Pulse 91 Pulse Source Pulse Oximeter Temp 97.9 F Temp Source Temporal Artery Scan Pulse Oximetry (%) 95 Oxygen Delivery Method Room Air Intake Visit Reasons: wiht pcp med check Intake Note: Arnulfo presents in the office for a medication check. Military Analyst Required: No Is last menstrual period known: Yes Last menstrual period: 07/16/25 Post menopausal: No Patient : No Allergies peanut Allergy (Severe, Verified 07/26/25 09:23) Anaphylaxis tree nut Allergy (Severe, Verified 07/26/25 09:23) Anaphylaxis, HIVE mold Allergy (Verified 07/26/25 09:23) Asthma flare Seasonal Allergies Allergy (Verified 07/26/25 09:23) Runny nose, watery eyes phentermine Adverse Reaction (Intermediate, Verified 07/26/25 09:23) tachycardia Cat dander Allergy (Uncoded 07/26/25 09:23) Itchy eyes, SOB Tobacco use date assessed: 07/26/25 Dental Screening Dental Screen Date: 07/26/25 Did you have a dental visit in the last 12 months?: No Did you have a dental problem in the last 6 months where you did not have access to dental care?: No Was dental information given to patient?: Patient declined HPI HPI Comments History of Present Illness Details This is a 35-year-old female with a past medical history of binge eating disorder, depression, obstructive sleep apnea, PCOS, asthma, admission for community-acquired pneumonia with respiratory failure requiring intubation and morbid obesity presenting for follow up. The patient has a history of acute hypoxic respiratory failure with hypercapnia secondary to status asthmaticus that was exacerbated by parainfluenza viral infection and community acquired pneumonia requiring intubation in February 2024. During hospitalization echocardiogram showed left ventricular ejection fraction around 45%, Followed by Cardiology, Dr. Pollack. Seen yesterday. She has a another echo scheduled in 3 months. Taking carvedilol, furosemide, losartan and Jardiance. Dr. Shirley is her travel registered nurse oncology. She is using a BiPAP and uses supplemental oxygen at night. She is on Symbicort and albuterol as needed. Patient has used albuterol more frequently during the past week due coughing. It alleviates symptoms. She has not needed a nebulizer treatment. No fevers or chills. She also takes loratadine for allergies. She quit smoking cigarettes following hospitalization. Denies interval exacerbations. She is on Prozac for depression which works well. She has a friend who has a holistic therapist that also supports her. She is taking tirzepatide 7.5 mg once a week. She would like to increase the dose. She has mild constipation for a day during the week. No other side effects. She saw a dietitian in the past. She is not interested in bariatric surgery. She exercises, swims, follows low carb diet. She tried low carb. Her weight on 03/22/2025 was 375 lb. Today she weighs 344 lb 6 oz. She received the flu vaccine and pneumonia vaccines at the pharmacy this Fall. Patient anemic, on B12 injections, followed by Hematology. She is also taking a folic acid supplement and iron. Lab work showed mildly decreased GFR likely secondary to diuretic use. It was repeated and improved. ROS: Constitutional: No unexplained weight loss, fever, chills or night sweats. ENT: No ear pain, sore throat or sinus pain. Respiratory: No shortness of breath, sputum production or wheezing. Cardiovascular: No chest pain Gastrointestinal: No anorexia, nausea, vomiting or diarrhea. No abdominal pain or blood in stool. Neurologic: No headache, dizziness, syncope Physical exam: Constitutional: Alert, in no distress. Ear, Nose and Throat: Canals clear. TMs normal. Normal nasal mucosa. No nasal discharge. No oral lesions. Neck: Supple, Full range of motion. No lymphadenopathy. No palpable thyroid masses. Respiratory: Clear to auscultation. Cardiovascular: S1 S2 regular. No murmurs. Extremities: Warm and well perfused. No clubbing, cyanosis. Trace bilateral lower extremity edema. Psychiatric: Normal mood and affect [facility] Medical History (Updated 07/27/25 @ 10:07 by MICHELE Kam) Decreased GFR Routine physical examination Asthma exacerbation Morbid obesity Asthma MARJORIE on CPAP MARJORIE (obstructive sleep apnea) Major depressive disorder Severe obesity KAMILA (acute kidney injury) History of fluid overload Cardiomyopathy CAP (community acquired pneumonia) Respiratory failure with hypoxia and hypercapnia Surgical History (Updated 06/28/25 @ 13:30 by Kitty Hernández NP) Hx of tonsillectomy Family History Mother Lupus Allergies Kidney stone Psoriasis Asthma Father Addiction Hypertension Thyroid condition Stroke Asthma Brother ADHD Brother Autism Brother Obesity Brother Obesity Sister Obesity Maternal Grandmother Skin cancer Social History (Updated 07/26/25 @ 09:26 by Suyapa Sy CMA) Household Members: Friend(s) Housing: Apartment Alcohol intake: current Alcohol intake frequency: holidays/special occasions only Patient Tobacco Use Status: Former Tobacco user Years Smoked: 10 e-Cigarette/Vaping Use: Never Used Second Hand Smoke Exposure: No Substance Use Type: Marijuana service: No Current occupational status: employed 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) Cognitive needs: No Hearing needs: No Vision needs: No Female Reproductive History Menstrual Date of last menstrual period: 07/16/25 Questionnaire Thrive Questionnaire Date Thrive assessed: 12/07/24 I am a: Patient What is your living situation today?: I have a steady place to live Within the past 12 months, did the food you bought not last and you didn't have the money to get more?: Never true Within the past 12 months, did you worry whether your food would run out before you got money to buy more?: Never true Do you have trouble paying for medicines?: No Do you have trouble getting transportation to medical appointments?: No Do you have trouble paying your heating and electricity bill?: No Do you have trouble taking care of your child, family member or friend?: No Do you have trouble with day-to-day activities such as bathing, preparing meals, shopping, managing finances, etc.?: No Are you currently unemployed and looking for a job?: No Are you interested in more education?: No Please select the resources that you would like help with: None Currently or been in a relationship where the following occur: No concerns reported THRIVE Score: 0 CONOR-7 AMB Questionnaire CONOR-7 Date CONOR - 7 assessed: 12/07/24 Source: Developed by Drs. Casey Samuel, Diane Doyle, Surya James and colleagues, with an educational newton from [employer]. Physical exam (Primary Care) Vital Signs: Last Vital Signs Temp 97.9 F 07/26/25 09:26 Pulse 91 07/26/25 09:26 Resp 16 07/26/25 09:26 BP 128/72 07/26/25 09:26 Pulse Ox 95 07/26/25 09:26 Oxygen Delivery Method Room Air 07/26/25 09:26 BMI result Body Mass Index 63.0 Tobacco/Smoking Status: Tobacco use Status Tobacco use date assessed 07/26/25 07/26/25 09:29 Patient Tobacco Use Status Former Tobacco user 07/26/25 09:29 e-Cigarette/Vaping Use Never Used 07/26/25 09:29 Thrive Assessment: Date of Thrive Assessment Date Thrive assessed 12/07/24 07/26/25 09:29 Currently or been in a relationship where the following occur: No concerns reported Coding Level of Care Code Est Pt Level 4 (24189) Add On Problem Visit Only Diagnoses Anemia D64.9 Decreased GFR R94.4 Mild persistent asthma without complication J45.30 Asthma severity: mild Asthma persistence: persistent Asthma complication type: uncomplicated MARJORIE (obstructive sleep apnea) G47.33 Cardiomyopathy, unspecified type I42.9 Cardiomyopathy type: unspecified Morbid obesity E66.01 Episode of recurrent major depressive disorder, unspecified depression episode severity F33.9 Major depression recurrence: recurrent Active/Remission status: currently active Major depression episode severity: unspecified Assessment & Plan Assessment & Plan (1) Anemia: Code(s): D64.9 - Anemia, unspecified Category: Medical Plan: Followed by Hematology. Continue supplementation with iron, folic acid, B12. (2) Decreased GFR: Code(s): R94.4 - Abnormal results of kidney function studies Category: Medical Plan: Likely secondary to diuretic use and some dehydration. She is drinking water. She repeated and GFR improve. Monitor. Avoid NSAIDs. (3) Asthma: Code(s): J45.909 - Unspecified asthma, uncomplicated Category: Medical Qualifiers: Asthma severity: mild Asthma persistence: persistent Asthma complication type: uncomplicated Qualified Code(s): J45.30 - Mild persistent asthma, uncomplicated Plan: Continue management per pulmonology. (4) MARJORIE (obstructive sleep apnea): Code(s): G47.33 - Obstructive sleep apnea (adult) (pediatric) Category: Medical Plan: Patient on CPAP and supplemental oxygen. (5) Cardiomyopathy: Code(s): I42.9 - Cardiomyopathy, unspecified Category: Medical Qualifiers: Cardiomyopathy type: unspecified Qualified Code(s): I42.9 - Cardiomyopathy, unspecified Plan: Patient has echo scheduled in 3 months with Cardiology. Continue current management. Continue GLP 1. (6) Morbid obesity: Code(s): E66.01 - Morbid (severe) obesity due to excess calories Category: Medical Plan: Congratulated patient on her success with lifestyle modifications and combination with GLP 1. Advanced to 10 mg weekly. Advised patient to contact me after she takes the 2nd or 3rd dose to let me know if she is ready to advanced to 12.5 mg if she is tolerating this. Since she also takes Jardiance we discussed the risk of low blood sugars in combination with GLP 1. She has not experienced any low blood sugars thus far. I will prescribe a glucometer and asked to keep this with her at all times. We reviewed signs and symptoms of hypoglycemia. I also sent glucose tablets and provided her with written instructions on how to treat low sugars. If she does have low sugar episodes we will need to decrease the dose of the GLP 1. (7) Major depressive disorder: Code(s): F32.9 - Major depressive disorder, single episode, unspecified Category: Medical Qualifiers: Major depression recurrence: recurrent Active/Remission status: currently active Major depression episode severity: unspecified Qualified Code(s): F33.9 - Major depressive disorder, recurrent, unspecified Plan: Continue fluoxetine. Stable. Plan Due for physical in December. Scheduled. Medications: New glucose (Dex4 Glucose) until blood sugar is >70 and symptoms resolve 16 grams (4 x 4 gram) PO Q15M PRN 10 tabs 3RF hypoglycemia lancets (OneTouch Delica Plus Lancet) Use as directed to check blood glucose as needed for hypoglycemia. 100 ea 0RF blood sugar diagnostic (OneTouch Verio test strips) Use as directed to check blood glucose as needed for hypoglycemia. 100 ea 0RF blood-glucose meter (OneTouch Verio Flex Meter) Use as directed to check blood glucose as needed for hypoglycemia. 1 ea 0RF tirzepatide (weight loss) (Zepbound) 10 mg (0.5 mL) subcut QWEEK 2 mL 0RF Discontinued tirzepatide (weight loss) (Zepbound) Discontinued Reason: Doctor's Order 7.5 mg (0.5 mL) subcut QWEEK 2 mL 0RF
[2025-07-26 09:26] VITALS: BP 128/72; PULSE 91; RESP 16; TEMP 36.6; O2SAT 95; BMI 63.0
--- OUTSIDE RECORDS SUMMARY | 2025-07-26 10:37 | XMS_ITS | Encounter Summary ---
Author Organization [facility] Prior to 06/09/2024 Address [address] [place] [address] Care Team Providers Care Ladler Name Role Phone Cierra Lizarraga MD Primary Care Provider [phone] Cris Hernández MD Primary Care Provider [phone] [facility], [facility] Primary Care Provider Unavailabl e Encounter Details Date Type Department Care Team Description 10/02/2021 Olericulturist Report Medical Records [address] [place] [address] Shannan Perez Social History Tobacco Use Types Packs/Day Years [...] documented as of this encounter Care Teams Ladler Relationship Specialty Start Date End Date Cierra Lizarraga MD [address] [place] [address] PCP - General Internal Medicine 02/24/21 09/13/22 Cris Hernández MD [address] [place] [address] PCP - General Internal Medicine 09/14/22 05/21/24 [facility], Pcp [address] [place] [address] PCP - General Internal Medicine 05/22/24 documented as of this encounter
--- OUTSIDE RECORDS SUMMARY | 2025-07-26 10:37 | XMS_ITS | Clinical Summary ---
Author Organization [facility] [address] [place] [address] [place] [phone] Phone Care Team Providers Care Lockstitch Machine Operator Name Role Phone Vika Bustamante MD Primary Care Provider [phone] Allergies Active Allergy Reactions Criticality Noted Date [...] 10/28/2012 Obstructive sleep apnea 08/27/2011 Overview (05/19/2024): [facility] Home sleep test 09/25/2021; weight 350; BMI 64. AHI 37, AI 2; HI 35. 14 obstructive apneas and 254 hypopneas. Average oxygen saturation 81% and oxygen jenni 63%. Obstructive sleep apnea severe with nocturnal hypoxemia; mostly hypopneas with nocturnal hypoxemia based on 2021 home sleep test. 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 [facility] History of ETOH abuse 07/15/2011 [...] Years Used Date Smoking Tobacco: Former Cigarettes 0 Q uit: 02/06/2021 Smokeless Tobacco: Never Tobacco [...] Depression Screening 08/09/2024 COVID-19 Vaccine (3 - 2025-26 season) 2025 09/11/2021, 08/14/2021 Influenza Vaccine (#1) [...] Hepatitis C antibody (10/06/2024 11:17 AM EST) [facility] Hepatitis C Antibody Negative Negative LAB CHEMISTRY METHOD 10/06/2024 5:56 PM EST [facility] Blood Venous blood specimen / Unknown Venipuncture / Unknown 10/06/2024 11:17 AM EST 10/06/2024 11:17 AM EST Catherine Gamboa Santos [facility] BLOOD ORDERABLES Final Res ult [facility] [address] [place] [address], * HIV 1,2 antibody, p24 antigen with reflex to differentiation (10/06/2024 11:17 AM EST) [facility] HIV Combo AB/AG Negative Negative LAB CHEMISTRY METHOD 10/06/2024 5:57 PM EST [facility] Blood Venous blood specimen / Unknown Venipuncture / Unknown 10/06/2024 11:17 AM EST 10/06/2024 11:17 AM EST [facility] - 10/06/2024 5:57 PM EST This assay is a 4th generation assay allowing for earlier detection of HIV infection by detecting the presence of the HIV-1 p24 antigen as well as the traditional antibodies to HIV type 1 (including group O) and type 2. Use of a 4th generation assay is the current CDC recommendation for HIV screening. Catherine [facility] LAB BLOOD ORDERABLES Final Res ult Performing Organization Address City/[facility]/ZIP Co de Phone Number [facility] [address] [place] [address], [place] [phone] * Cervical Cancer Screening: HPV (09/01/2023) [facility] Cervical Cancer Screening: HPV Negative, Abstracted [...] Most Recently Relevant to Health Maintenance Insurance [facility] Care Teams Lockstitch Machine Operator Relationship Specialty Start Date End Date Vika Bustamante MD [address] [place] [address] [address] [place] [address] PCP - General Internal Medicine 10/05/24
--- OUTSIDE RECORDS SUMMARY | 2025-07-26 10:37 | XMS_ITS | Encounter Summary ---
Author Organization [facility] Prior to 06/09/2024 Address [address] [place] [address] Care Team Providers Care Head Grower Name Role Phone Vika Restrepo MD Primary Care Provider Thang allen [facility], Pcp Primary Care Provider UnavailCierra Wilde MD Primary Care Provider Cris Hernández MD Primary Care Provider [phone] [facility], Pcp Primary Care Provider Unavailabl e Encounter Details Date Type Department Care Team Description 09/29/2020 Pt. Non Urgent Medic al Question Adult Medicine [address] [address] Luke Cortez MD Social History Tobacco Use Types Packs/Day [...] have Coronavirus / COVID-19? No / Unsure 09/20/2020 3:00 PM EST documented as of this encounter Miscellaneous Notes * Telephone Encounter - Hailey Granados L.P.N. - 09/30/2020 9:29 AM ESTFrom: Miriam Frias To: Luke Cortez MD Sent: 09/29/2020 9:33 PM EST Subject: Weight-loss referral Bridgett, I haven't received a phone call regarding the weight loss program. Is it possible to receive the information in the referral so I can reach out to them myself? Thank you in advance. Miriam Frias documented in this encounter Plan of Treatment Not on file documented as of this encounter Visit Diagnoses Not on filedocumented in this encounter Additional Health Concerns Infection Onset Date Last Indicated Resolved Time COVID-19 05/05/2022 05/05/2022 documented as of this encounter Care Teams Head Grower Relationship Specialty Start Date End Date Vika Restrepo MD PCP - General Internal Medicine 08/28/15 02/06/21 [facility], Pcp PCP - General Internal Medicine 02/07/21 02/23/21 Cierra Lizarraga MD [address] [place] [address] PCP - General Internal Medicine 02/24/21 09/13/22 Cris Hernández MD [address] [place] [address] PCP - General Internal Medicine 09/14/22 05/21/24 [facility], Pcp PCP - General Internal Medicine 05/22/24 documented as of this encounter
--- OUTSIDE RECORDS SUMMARY | 2025-07-26 10:38 | XMS_ITS | Encounter Summary ---
Author Organization [facility] Prior to 06/09/2024 Address [address] [place] [address] Care Team Providers Care Precision Honer Name Role Phone Vika Restrepo MD Primary Care Provider Thang allen [facility], Pcp Primary Care Provider UnavailCierra Wilde MD Primary Care Provider [phone] Cris Hernández MD Primary Care Provider [phone] [facility], Pcp Primary Care Provider Unavailtrista e Encounter Details Date Type Department Care Team Description 08/01/2016 Pt. Non Urgent Medic al Question Medicine/Pediatrics - [address] [id number] Dena Robles PA-C Social History Tobacco Use [...] as of this encounter Progress Notes * Miladis De La Vega RN - 08/04/2016 9:05 AM ESTFrom: Miriam Frias To: Dena Robles PA-C Sent: 08/01/2016 11:02 PM EST Subject: Weight, veins Hello Dr. Robles, I'm not sure if you remember but several months ago we discussed weight loss options. I would like to set up an appointment to discuss more in depth about options to lose weight. I've been experiencing leg pain, swelling and numbness. I've also started developing brown spots around my ankle, and Imdeveloping more anxiety about my health. documented in this encounter Plan of Treatment Not on file documented as of this encounter Visit Diagnoses Not on filedocumented in this encounter Additional Health Concerns Infection Onset Date Last Indicated Resolved Time COVID-19 05/05/2022 05/05/2022 documented as of this encounter Care Teams Precision Honer Relationship Specialty Start Date End Date Vika Restrepo MD PCP - General Internal Medicine 08/28/15 02/06/21 [facility], Pcp PCP - General Internal Medicine 02/07/21 02/23/21 Cierra Lizarraga MD [address] [place] [address] PCP - General Internal Medicine 02/24/21 09/13/22 Cris Hernández MD [address] [place] [address] PCP - General Internal Medicine 09/14/22 05/21/24 [facility], Pcp PCP - General Internal Medicine 05/22/24 documented as of this encounter
--- OUTSIDE RECORDS SUMMARY | 2025-07-26 10:38 | XMS_ITS | Encounter Summary ---
Author Organization [employer] [facility] Prior to 06/09/2024 Address [address] [place] [address] Care Team Providers Care Beauty Advisor Name Role Phone Cierra Lizarraga MD Primary Care Provider [phone] Cris Hernández MD Primary Care Provider [phone] [facility] Primary Care Provider Unavailabl e Encounter Details Date Type Department Care Team Description 01/03/2022 Pt. Non Urgent Medical Question Pulmonology - [place] [address] [facility] [address] [place] [id number] Vida Harvey, [facility] [address] [place] [address] Social History Tobacco Use Types Packs/Day Years [...] documented as of this encounter Care Teams Beauty Advisor Relationship Specialty Start Date End Date Cierra Lizarraga MD [address] [place] [address] PCP - General Internal Medicine 02/24/21 09/13/22 Cris Hernández MD [address] [place] [address] PCP - General Internal Medicine 09/14/22 05/21/24 [facility], [place] [address] PCP - General Internal Medicine 05/22/24 documented as of this encounter
--- OUTSIDE RECORDS SUMMARY | 2025-07-26 10:38 | XMS_ITS | Encounter Summary ---
Author Organization [facility] Prior to 06/09/2024 Address [address] [place] [address] Care Team Providers Care Production Potter Name Role Phone Cierra Lizarraga MD Primary Care Provider [phone] Cris Hernández MD Primary Care Provider [phone] [facility] Primary Care Provider Unavailabl e Encounter Details Date Type Department Care Team Description 10/06/2021 Orders Only Medical Records [address] [place] [address] Laure Blanco PA-C Social History Tobacco Use [...] Associated Diagnosis Comments OUTSIDE SLEEP STUDY Routine 09/25/2021 documented in this encounter Results * OUTSIDE SLEEP STUDY (09/25/2021) Laure Blanco PA-C PULMONOLOGY documented in this encounter Visit Diagnoses Not on filedocumented in this encounter Additional Health Concerns Infection Onset Date Last Indicated Resolved Time COVID-19 05/05/2022 05/05/2022 documented as of this encounter Care Teams Production Potter Relationship Specialty Start Date End Date Cierra Lizarraga MD [address] [place] [address] PCP - General Internal Medicine 02/24/21 09/13/22 Cris Hernández MD [address] [place] [address] PCP - General Internal Medicine 09/14/22 05/21/24 [facility], [address] [address] PCP - General Internal Medicine 05/22/24 documented as of this encounter
--- OUTSIDE RECORDS SUMMARY | 2025-07-26 10:38 | XMS_ITS | Encounter Summary ---
Author Organization [employer] [facility] Prior to 06/09/2024 Address [address] [place] [address] Care Team Providers Care International Student Advisor Name Role Phone Vika Restrepo MD Primary Care Provider Thang allen [facility], Pcp Primary Care Provider UnavailCierra Wilde MD Primary Care Provider [phone] Cris Hernández MD Primary Care Provider [phone] [facility], Pcp Primary Care Provider Unavailtrista e Encounter Details Date Type Department Care Team Description 12/29/2016 Orders Only Medicine/Pediatrics - [address] [phone] Sal Alicia PA-C Right calf pain Social [...] Procedure Name Priority Date/Time Associated Diagnosis Comments [place] DUP-SCAN XTR VEINS UNILATERAL/LIMITED STUDY STAT 12/22/2016 Right calf pain documented in this encounter Results * EXTREMITY VEINS STUDY, LIMITED (12/22/2016) Sal Alicia PA-C ULTRASOUND documented in this encounter Visit Diagnoses Diagnosis Right calf pain documented in this encounter Additional Health Concerns Infection Onset Date Last Indicated Resolved Time COVID-19 05/05/2022 05/05/2022 documented as of this encounter Care Teams International Student Advisor Relationship Specialty Start Date End Date Vika Restrepo MD PCP - General Internal Medicine 08/28/15 02/06/21 [facility], Pcp PCP - General Internal Medicine 02/07/21 02/23/21 Cierra Lizarraga MD [address] [place] [address] PCP - General Internal Medicine 02/24/21 09/13/22 Cris Hernández MD [address] [place] [address] PCP - General Internal Medicine 09/14/22 05/21/24 [facility], Pcp PCP - General Internal Medicine 05/22/24 documented as of this encounter
--- OUTSIDE RECORDS SUMMARY | 2025-07-26 10:38 | XMS_ITS | Encounter Summary ---
Author Organization [facility] Prior to 06/09/2024 Address [address] [place] [address] Care Team Providers Care Manager Sound Name Role Phone Jaya Burnham MD Primary Care Provider Unavail able Vika Restrepo MD Primary Care Provider Thang allen [facility], Pcp Primary Care Provider Cierra Bravo MD Primary Care Provider [phone] Cris Hernández MD Primary Care Provider [phone] [facility] Primary Care Provider Nadja odonnell Encounter Details Date Type Department Care Team Description 12/06/2012 Transfer Records Medical Records [address] [place] [address] Abstract, Provider Social History Tobacco Use Types [...] documented as of this encounter Care Teams Manager Sound Relationship Specialty Start Date End Date Jaya Burnham MD PCP - General Internal Medicine 10/19/12 08/27/15 Vika Restrepo MD PCP - General Internal Medicine 08/28/15 02/06/21 [facility] Pcp PCP - General Internal Medicine 02/07/21 02/23/21 Cierra Lizarraga MD [address] [place] [address] PCP - General Internal Medicine 02/24/21 09/13/22 Cris Hernández MD [address] [place] [address] PCP - General Internal Medicine 09/14/22 05/21/24 [facility], Pcp PCP - General Internal Medicine 05/22/24 documented as of this encounter
--- OUTSIDE RECORDS SUMMARY | 2025-07-26 10:38 | XMS_ITS | Encounter Summary ---
Author Organization [facility] Prior to 06/09/2024 Address [address] [place] [address] Care Team Providers Care Gear Repairer Name Role Phone Vika Restrepo MD Primary Care Provider Thang allen [facility], Pcp Primary Care Provider UnavailCierra Wilde MD Primary Care Provider [phone] Cris Hernández MD Primary Care Provider [phone] [facility], Pcp Primary Care Provider Unavailtrista e Encounter Details Date Type Department Care Team Description 12/15/2016 Pt. Non Urgent Medic al Question Medicine/Pediatrics - [address] [phone] Dena Robles PA-C Social History Tobacco Use [...] Progress Notes * Hailey Granados L.P.N. - 12/16/2016 9:14 AM EDTFrom: Miriam Cervantestron To: Dena Robles PA-C Sent: 12/15/2016 5:30 PM EDT Subject: Injury Hi Dr. Travis, I injured myself at work today (12/15/16). I had a really bad fall and I sprained my right ankle and knee. I can't seem to catch a break. I tried to make an appointment for tomorrow or becauseI am excused from work those days but you had no openings. Is there any way I can be seen in the next two days? I went to urgent care today. They did X-rays and nothing came up. I definitely want to follow up with you. Miriam. documented in this encounter Plan of Treatment Not on file documented as of this encounter Visit Diagnoses Not on filedocumented in this encounter Additional Health Concerns Infection Onset Date Last Indicated Resolved Time COVID-19 05/05/2022 05/05/2022 documented as of this encounter Care Teams Gear Repairer Relationship Specialty Start Date End Date Vika Restrepo MD PCP - General Internal Medicine 08/28/15 02/06/21 [facility], Pcp PCP - General Internal Medicine 02/07/21 02/23/21 Cierra Lizarraga MD [address] [place] [address] PCP - General Internal Medicine 02/24/21 09/13/22 Cris Hernández MD [address] [place] [address] PCP - General Internal Medicine 09/14/22 05/21/24 [facility], Pcp PCP - General Internal Medicine 05/22/24 documented as of this encounter
--- OUTSIDE RECORDS SUMMARY | 2025-07-26 10:38 | XMS_ITS | Encounter Summary ---
Author Organization [email or web address] [facility] Prior to 06/09/2024 Address [address] [place] [address] Care Team Providers Care Housekeeping Associate Name Role Phone Aleksandar So MD Primary Care Provider Un available Jaya Burnham MD Primary Care Provider Unavail able Vika Restrepo MD Primary Care Provider Unavaila alejandro [facility], Pcp Primary Care Provider Unavailabl e Cierra Lizarraga MD Primary Care Provider [phone] Cris Hernández MD Primary Care Provider [phone] [facility], Pcp Primary Care Provider Unavailtrista odonnell Encounter Details Date Type Department Care Team Description 05/21/2011 Gem Technician Report Medical Records [address] [place] [address] Abstract, Provider Social History Tobacco Use Types [...] documented as of this encounter Care Teams Housekeeping Associate Relationship Specialty Start Date End Date Aleksandar So MD PCP - General 09/04/1997 10/18/12 Jaya Burnham MD PCP - General Internal Medicine 10/19/12 08/27/15 Vika Restrepo MD PCP - General Internal Medicine 08/28/15 02/06/21 [facility], Pcp PCP - General Internal Medicine 02/07/21 02/23/21 Cierra Lizarraga MD [address] [place] [address] PCP - General Internal Medicine 02/24/21 09/13/22 Cris Hernández MD [address] [place] [address] PCP - General Internal Medicine 09/14/22 05/21/24 [facility], Pcp PCP - General Internal Medicine 05/22/24 documented as of this encounter
--- OUTSIDE RECORDS SUMMARY | 2025-07-26 10:38 | XMS_ITS | Encounter Summary ---
Author Organization [employer] [facility] Prior to 06/09/2024 Address [address] [place] [address] Care Team Providers Care Fagot Maker Name Role Phone Cierra Lizarraga MD Primary Care Provider [phone] Cris Hernández MD Primary Care Provider [phone] [facility] Primary Care Provider Unavailabl e Reason for Visit * Reason Onset Date Comments DME Request 12/03/2021 Encounter Details Date Type Department Care Team Description 12/03/2021 Telephone Pulmonology [facility] [address] [facility] [address] [place] [address] [facility] [address] [place] [address] DME Request Social History Tobacco Use Types [...] Miscellaneous Notes * Telephone Encounter - Marifer Watson - 12/03/2021 10:49 AM EDT Done faxed order to Mary for replacement machine documented in this encounter Plan of Treatment Not on file documented as of this encounter Visit Diagnoses Not on filedocumented in this encounter Additional Health Concerns Infection Onset Date Last Indicated Resolved Time COVID-19 05/05/2022 05/05/2022 documented as of this encounter Care Teams Fagot Maker Relationship Specialty Start Date End Date Cierra Lizarraga MD [address] [place] [address] PCP - General Internal Medicine 02/24/21 09/13/22 Cris Hernández MD [address] [place] [address] PCP - General Internal Medicine 09/14/22 05/21/24 [facility], Pcp [address] [place] [address] PCP - General Internal Medicine 05/22/24 documented as of this encounter
--- OUTSIDE RECORDS SUMMARY | 2025-07-26 10:38 | XMS_ITS | Encounter Summary ---
Author Organization [facility] Prior to 06/09/2024 Address [address] [place] [address] Care Team Providers Care Printing Worker Supervisor Name Role Phone Vika Restrepo MD Primary Care Provider Thang allen [facility], Pcp Primary Care Provider Unavailabl e Cierra Lizarraga MD Primary Care Provider [phone] Cris Hernández MD Primary Care Provider [phone] [facility], [facility] Primary Care Provider Unavailabl e Reason for Referral * EXTERNAL (Routine) - Authorized/Booked Specialty Diagnoses / Procedures Referred By Contact Referred To Contact Allergy & Immunology / Allergy Procedures REFERRAL TO ALLERGY Vika Restrepo MD [address] [place] [address] [facility] [address] [place] [address] Referral ID Status Reason Start Date Expiration Date V isits Requested Visits Authorized SEE NOTE Authorized/B ooked 03/09/2016 06/09/2016 1 1 Reason for Visit * Reason Onset Date Comments Pool Hall Inspector Feedback 03/09/2016 allergy Encounter Details Date Type Department Care Team Description 03/09/2016 Telephone Adult Medicine [facility] [address] [place] [address] Vika Restrepo MD Pool Hall Inspector Feedback (allergy) Social History Tobacco Use Types Packs/Day Years [...] encounter Miscellaneous Notes * Telephone Encounter - Gabrielle Silvano - 03/09/2016 10:38 AM EDT Please review this patients new referral request. The referral has been pended. Please complete thefollowing: If approved> sign order If denied>please give instructions and route to your practice nursing pool. Practice nurse should inform referrals and the patient if denied. Request received via [employer] documented in this encounter Plan of Treatment Not on file documented as of this encounter Visit Diagnoses Not on filedocumented in this encounter Additional Health Concerns Infection Onset Date Last Indicated Resolved Time COVID-19 05/05/2022 05/05/2022 documented as of this encounter Care Teams Printing Worker Supervisor Relationship Specialty Start Date End Date Vika Restrepo MD PCP - General Internal Medicine 08/28/15 02/06/21 [facility], Pcp PCP - General Internal Medicine 02/07/21 02/23/21 Cierra Lizarraga MD [address] [place] [address] PCP - General Internal Medicine 02/24/21 09/13/22 Cris Hernández MD [address] [place] [address] PCP - General Internal Medicine 09/14/22 05/21/24 [facility], Pcp PCP - General Internal Medicine 05/22/24 documented as of this encounter
--- OUTSIDE RECORDS SUMMARY | 2025-07-26 10:38 | XMS_ITS | Encounter Summary ---
Author Organization [facility] Prior to 06/09/2024 Address [address] [place] [address] Care Team Providers Care Extrusion Manager Name Role Phone Cierra Lizarraga MD Primary Care Provider [phone] Cris Hernández MD Primary Care Provider [phone] [facility] Primary Care Provider Unavailabl e Reason for Visit * Reason Onset Date Comments Cotton Jammer Feedback 03/06/2021 Endo Encounter Details Date Type Department Care Team Description 03/06/2021 Telephone Adult Medicine [facility] [address] [place] [address] [phone] Cierra Lizarraga MD [address] [place] [address] [phone] Cotton Jammer Feedback (Endo) Social History Tobacco Use Types [...] great weekend ahead! Thank you, Lindy Referrals Service Coordinator Elderly Facility * Telephone Encounter - Cierra Lizarraga MD [...] seen sooner, please call and speak with [facility] Endocrinology at [phone]. If this appointment is acceptable, please document and close the encounter. A letter has been mailed to the patient with the appointment information. If the appointment information changes, please contact the patient with their new appointment information. Thank you, Lindy Referrals Service Coordinator Elderly Facility documented in this encounter Plan of Treatment Not on file documented as of this encounter Visit Diagnoses Not on filedocumented in this encounter Additional Health Concerns Infection Onset Date Last Indicated Resolved Time COVID-19 05/05/2022 05/05/2022 documented as of this encounter Care Teams Extrusion Manager Relationship Specialty Start Date End Date Cierra Lizarraga MD [address] [place] [address] PCP - General Internal Medicine 02/24/21 09/13/22 Cris Hernández MD [address] [place] [address] PCP - General Internal Medicine 09/14/22 05/21/24 Keke, Davis [address] [place] [address] 35805 PCP - General Internal Medicine 05/22/24 documented as of this encounter
--- OUTSIDE RECORDS SUMMARY | 2025-07-26 10:38 | XMS_ITS | Encounter Summary ---
Author Organization [facility] Prior to 06/09/2024 Address [address] [place] [address] Care Team Providers Care President Finance Company Name Role Phone Cierra Lizarraga MD Primary Care Provider [phone] Cris Hernández MD Primary Care Provider [phone] [facility], [facility] Primary Care Provider Unavailabl e Encounter Details Date Type Department Care Team Description 10/22/2021 Product Management Specialist Report Medical Records [address] [place] [address] Shannan Perez Social History Tobacco Use Types [...] documented as of this encounter Care Teams President Finance Company Relationship Specialty Start Date End Date Cierra Lizarraga MD [address] [place] [address] PCP - General Internal Medicine 02/24/21 09/13/22 Cris Hernández MD [address] [place] [address] PCP - General Internal Medicine 09/14/22 05/21/24 [facility], Pcp [address] [place] [address] PCP - General Internal Medicine 05/22/24 documented as of this encounter
--- OUTSIDE RECORDS SUMMARY | 2025-07-26 10:38 | XMS_ITS | Encounter Summary ---
Author Organization [facility] Prior to 06/09/2024 Address [address] [place] [address] Care Team Providers Care Scale Attendant Name Role Phone Vika Restrepo MD Primary Care Provider Thang allen [facility], Pcp Primary Care Provider UnavailCierra Wilde MD Primary Care Provider [phone] Cris Hernández MD Primary Care Provider [phone] [facility], Pcp Primary Care Provider Unavailtrista e Encounter Details Date Type Department Care Team Description 10/07/2016 Pt. Non Urgent Medic al Question Medicine/Pediatrics - [address] [address] Dena Robles PA-C Social History Tobacco Use [...] this encounter Progress Notes * Hailey Granados L.P.NIza - 10/07/2016 12:24 PM ESTFrom: Miriam Frias To: Dena Robles PA-C Sent: 10/07/2016 12:20 PM EST Subject: Knee Hello, I scheduled an appointment for PT. I was just wondering if you might know approximately when I would hear back about the MRI. Thanks, Anaralis documented in this encounter Plan of Treatment Not on file documented as of this encounter Visit Diagnoses Not on filedocumented in this encounter Additional Health Concerns Infection Onset Date Last Indicated Resolved Time COVID-19 05/05/2022 05/05/2022 documented as of this encounter Care Teams Scale Attendant Relationship Specialty Start Date End Date Vika Restrepo MD PCP - General Internal Medicine 08/28/15 02/06/21 [facility], Pcp PCP - General Internal Medicine 02/07/21 02/23/21 Cierra Lizarraga MD [address] [place] [address] PCP - General Internal Medicine 02/24/21 09/13/22 Cris Hernández MD [address] [place] [address] PCP - General Internal Medicine 09/14/22 05/21/24 [facility], Pcp PCP - General Internal Medicine 05/22/24 documented as of this encounter
--- OUTSIDE RECORDS SUMMARY | 2025-07-26 10:39 | XMS_ITS | Encounter Summary ---
Author Organization [facility] Prior to 06/09/2024 Address [address] [place] [address] Care Team Providers Care Gas Line Installer Supervisor Name Role Phone Vika Restrepo MD Primary Care Provider Thang allen [facility], Pcp Primary Care Provider UnavailCierra Wilde MD Primary Care Provider [phone] Cris Hernández MD Primary Care Provider [phone] [facility], Pcp Primary Care Provider Unavailabl e Encounter Details Date Type Department Care Team Description 03/27/2020 Pt. Non Urgent Medical Question Medicine/Pediatrics - [address] [address] Vika Restrepo MD Social History Tobacco Use Types Packs/Day [...] of this encounter Progress Notes * Hailey AceP.N. - 03/27/2020 8:40 AM EDTFrom: Miriam Frias To: Vika Restrepo MD Sent: 03/27/2020 6:39 AM EDT Subject: Covid testing available? Good morning, I have been experiencing diarrhea for the last 24 hours. as part of my screening assessment for my employer I am not able to enter my work building without clearance from my physician. This has been my only symptom. The few people I have been in contact with the last few days had similar symptoms, which is why I am reaching out to inquire if there are rapid covid test that can be completed so I can return to work. any information is helpful. Thank you Miriam Frias documented in this encounter Plan of Treatment Not on file documented as of this encounter Visit Diagnoses Not on filedocumented in this encounter Additional Health Concerns Infection Onset Date Last Indicated Resolved Time COVID-19 05/05/2022 05/05/2022 documented as of this encounter Care Teams Gas Line Installer Supervisor Relationship Specialty Start Date End Date Vika Restrepo MD PCP - General Internal Medicine 08/28/15 02/06/21 [facility], Pcp PCP - General Internal Medicine 02/07/21 02/23/21 Cierra Lizarraga MD [address] [place] [address] PCP - General Internal Medicine 02/24/21 09/13/22 Cris Hernández MD [address] [place] [address] PCP - General Internal Medicine 09/14/22 05/21/24 [facility], Pcp PCP - General Internal Medicine 05/22/24 documented as of this encounter
--- OUTSIDE RECORDS SUMMARY | 2025-07-26 10:39 | XMS_ITS | Encounter Summary ---
Author Organization [facility] Prior to 06/09/2024 Address [address] [place] [address] Care Team Providers Care Distance Education Teacher Name Role Phone Cris Hernández MD Primary Care Provider [phone] [facility], Pcp Primary Care Provider Unavailabl e Reason for Visit * Reason Onset Date Comments Faxed Refill 02/15/2023 Encounter Details Date Type Department Care Team Description 02/15/2023 Refill Adult Medicine [address] [address] Cris Hernández MD [address] [place] [address] [phone] Faxed Refill Social History Tobacco Use Types Packs/Day Years [...] received? Master's degree (e.g., MARITZA, , Caron, MEd, CERTIFIED HEARING INSTRUMENT DISPENSER, DEE DEE) 09/14/2022 Sex Assigned at Date Recorded Female 01/12/2022 9:59 PM E DT Job Start Date Occupation Industry Not on file Not on file Not on file documented as of this encounter Miscellaneous Notes * Telephone Encounter - Turner Pettit PA-C - 02/15/2023 11:53 AM EDT Ok to fill. Ba, Sara * Telephone Encounter - Iliana Purdy M.A. - 02/15/2023 11:44 AM EDT Last office visit 11/12/22 Next office visit 03/09/23 Last filled on 01/18/23 for 30 days. Will you fill until seen? Lab Results Component Value Date ALB 3.4 09/15/2022 SGOT 14 09/15/2022 SGPT 24 09/15/2022 TBILI 0.4 09/15/2022 ALKPHOS 66 09/15/2022 TP 7.5 09/15/2022 * Telephone Encounter - Gurjit Zafar - 02/15/2023 11:32 AM EDT Patient would like script to be: E-PRESCRIBED/FAXED TO PHARMACY WHEN WAS THE PATIENT'S LAST APPOINTMENT IN ADULT MEDICINE? 11/12/2022 WHEN WAS THE LAST TIME THE PATIENT SAW THEIR PCP? Same as above Does patient have an upcoming appointment? Yes 03/09/2023 (THE MEDICATION REQUESTED IS ON THE MED LIST ABOVE) All of the medications requested were on the CURRENT MEDS list Did you check the Pharmacy information above?: YES Patient wants: 30 -day supply Is this a mail order prescription request ? NO If the refill is from a FAXED refill request what is the RX # listed on the fax? N/A Patients current insurance carrier is: Payor: WORKERS COMP / Plan: WORKERS [place] / Product Type: OTHER Insurance ID #: NO CLAIM # documented in this encounter Plan of Treatment Not on file documented as of this encounter Visit Diagnoses Not on filedocumented in this encounter Additional Health Concerns Infection Onset Date Last Indicated Resolved Time COVID-19 05/05/2022 05/05/2022 documented as of this encounter Care Teams Distance Education Teacher Relationship Specialty Start Date End Date Cris Hernández MD [address] [place] [address] PCP - General Internal Medicine 09/14/22 05/21/24 [facility], Pcp [address] [place] [address] PCP - General Internal Medicine 05/22/24 documented as of this encounter
--- OUTSIDE RECORDS SUMMARY | 2025-07-26 10:39 | XMS_ITS | Encounter Summary ---
Author Organization [facility] Prior to 06/09/2024 Address [address] [place] [address] Care Team Providers Care Mass Spec Name Role Phone Cris Hernández MD Primary Care Provider [phone] [facility], Pcp Primary Care Provider Unavailabl e Encounter Details Date Type Department Care Team Description 06/17/2023 Pt. Non Urgent Medical Question OBGYN - [address] [place] [address] Catherine Santos, RIA [address] [place] [address] Social History Tobacco Use Types Packs/Day Years [...] Master's degree (e.g., MARITZA, , Caron, MEd, GLASS WOOL BLANKET MACHINE FEEDER, DEE DEE) 09/14/2022 Sex Assigned at Date [...] documented as of this encounter Care Teams Mass Spec Relationship Specialty Start Date End Date Cris Hernández MD [address] [place] [address] PCP - General Internal Medicine 09/14/22 05/21/24 [facility], [address] [address] PCP - General Internal Medicine 05/22/24 documented as of this encounter
--- OUTSIDE RECORDS SUMMARY | 2025-07-26 10:39 | XMS_ITS | Encounter Summary ---
Author Organization [facility] Prior to 06/09/2024 Address [address] [place] [address] Care Team Providers Care Rhinestone Setter Name Role Phone Cris Hernández MD Primary Care Provider [phone] [facility] [place] [facility], Pcp Primary Care Provider Unavailabl e Encounter Details Date Type Department Care Team Description 10/27/2023 Pt. Non Urgent Medical Question OBGYN - [address] [place] [address] Catherine Santos, RIA [address] [place] [address] Social History Tobacco Use Types Packs/Day Years [...] Master's degree (e.g., MARITZA, , Caron, MEd, WOOD INSPECTOR, DEE DEE) 09/14/2022 Sex Assigned at Date Recorded Female 01/12/2022 9:59 PM E DT Job Start Date Occupation Industry Not on file Not on file Not on file documented as of this encounter Miscellaneous Notes * Telephone Encounter - Brandi Espino R.N. - 10/28/2023 11:53 AM EDTFrom: Miriam Frias To: Catherine Santos CNM Sent: 10/27/2023 6:02 PM EDT Subject: Time between periods Lucho Alexander, you had told me to message you if my periods continued to increase in length between cycles. My last period started on 09/08/23 and just got my next one today 10/27/23. This has been the longest time between periods in several years so I just wanted to get ahead in case it takes a while to get an appointment. documented in this encounter Plan of Treatment Not on file documented as of this encounter Visit Diagnoses Not on filedocumented in this encounter Additional Health Concerns Infection Onset Date Last Indicated Resolved Time COVID-19 05/05/2022 05/05/2022 documented as of this encounter Care Teams Rhinestone Setter Relationship Specialty Start Date End Date Cris Hernández MD [address] [place] [address] PCP - General Internal Medicine 09/14/22 05/21/24 [facility] [place] [facility], Pcp [address] [place] [address] PCP - General Internal Medicine 05/22/24 documented as of this encounter
--- OUTSIDE RECORDS SUMMARY | 2025-07-26 10:39 | XMS_ITS | Encounter Summary ---
Author Organization [facility] Prior to 06/09/2024 Address [address] [place] [address] Care Team Providers Care Threader Name Role Phone Aleksandar So MD Primary Care Provider Un available Jaya Burnham MD Primary Care Provider Unavail able Vika Restrepo MD Primary Care Provider Unavaila [facility], Pcp Primary Care Provider Unavailabl e Cierra Lizarraga MD Primary Care Provider [phone] Cris Hernández MD Primary Care Provider [phone] [facility], Pcp Primary Care Provider Unavailtrista odonnell Encounter Details Date Type Department Care Team Description 01/26/2005 Orders Only Medicine/Pediatrics - [address] [address] Aleksandar So MD ACUTE PHARYNGITIS (Primary Dx) Social History Tobacco Use Types Packs/Day Years Used Date Smoking Tobacco: Never Assessed Sex Assigned at Date Recorded Female 01/12/2022 9:59 PM EDT Job Start Date Occupation Industry Not on [...] [employer] Testing Performed at [facility], [address] [place] [address] [employer] 01/26/2005 11:0 0 AM EDT 01/26/2005 11:42 AM EDT Aleksandar So MD [facility] documented in this encounter Visit Diagnoses Diagnosis Acute pharyngitis- Primary documented in this encounter Additional Health Concerns Infection Onset Date Last Indicated Resolved Time COVID-19 05/05/2022 05/05/2022 documented as of this encounter Care Teams Threader Relationship Specialty Start Date End Date Aleksandar So MD PCP - General 09/04/1997 10/18/12 Jaya Burnham MD PCP - General Internal Medicine 10/19/12 08/27/15 Vika Restrepo MD PCP - General Internal Medicine 08/28/15 02/06/21 [facility], Pcp PCP - General Internal Medicine 02/07/21 02/23/21 Cierra Lizarraga MD [address] [place] [address] PCP - General Internal Medicine 02/24/21 09/13/22 Cris Hernández MD [address] [place] [address] PCP - General Internal Medicine 09/14/22 05/21/24 [facility], Pcp PCP - General Internal Medicine 05/22/24 documented as of this encounter
--- OUTSIDE RECORDS SUMMARY | 2025-07-26 10:39 | XMS_ITS | Encounter Summary ---
Author Organization [facility] Prior to 06/09/2024 Address [address] [place] [address] Care Team Providers Care Investment Sales Assistant Name Role Phone Aleksandar So MD Primary Care Provider Un available Jaya Burnham MD Primary Care Provider Unavail able Vika Restrepo MD Primary Care Provider Unavaila [facility], Pcp Primary Care Provider Unavailabl e Cierra Lizarraga MD Primary Care Provider [phone] Cris Hernández MD Primary Care Provider [phone] [facility], Pcp Primary Care Provider Unavailabl e Encounter Details Date Type Department Care Team Description 12/16/2011 Float Builder Report Medical Records [address] [place] [address] Julito Crocker NP Social History Tobacco Use Types Packs/Day Years [...] documented as of this encounter Care Teams Investment Sales Assistant Relationship Specialty Start Date End Date Aleksandar So MD PCP - General 09/04/1997 10/18/12 Jaya Burnham MD PCP - General Internal Medicine 10/19/12 08/27/15 Vika Restrepo MD PCP - General Internal Medicine 08/28/15 02/06/21 [facility], [facility]cp PCP - General Internal Medicine 02/07/21 02/23/21 Cierra Lizarraga MD [address] [place] [address] PCP - General Internal Medicine 02/24/21 09/13/22 Cris Hernández MD [address] [place] [address] PCP - General Internal Medicine 09/14/22 05/21/24 [facility], Pcp PCP - General Internal Medicine 05/22/24 documented as of this encounter
--- OUTSIDE RECORDS SUMMARY | 2025-07-26 10:39 | XMS_ITS | Encounter Summary ---
Author Organization [facility] Prior to 06/09/2024 Address [address] [place] [address] Care Team Providers Care Sales Performance Manager Name Role Phone Vika Restrepo MD Primary Care Provider Thang allen [facility], Pcp Primary Care Provider Unavailabl e Cierra Lizarraga MD Primary Care Provider [phone] Cris Hernández MD Primary Care Provider [phone] [facility], Pcp Primary Care Provider Unavailabl e Reason for Visit * Reason Onset Date Comments Appointment-Internal Referral 09/13/2019 Ge neral Surgery Encounter Details Date Type Department Care Team Description 09/13/2019 Telephone General Surgery - [place] [address] [facility] [address] [place] [address] Mayank Maloney PA-C Appointment-Internal Referral [...] - 09/13/2019 4:34 PM EST Thanks for PRIYANKA * Telephone Encounter - Hailey Castrejon - 09/13/2019 3:21 PM EST Mayank Ellidmitriy has not responded to the telephone calls [...] documented as of this encounter Care Teams Sales Performance Manager Relationship Specialty Start Date End Date Vika Restrepo MD PCP - General Internal Medicine 08/28/15 02/06/21 [facility], Pcp PCP - General Internal Medicine 02/07/21 02/23/21 Cierra Lizarraga MD [address] [place] [address] PCP - General Internal Medicine 02/24/21 09/13/22 Cris Hernández MD [address] [place] [address] PCP - General Internal Medicine 09/14/22 05/21/24 [facility], Pcp PCP - General Internal Medicine 05/22/24 documented as of this encounter
--- OUTSIDE RECORDS SUMMARY | 2025-07-26 10:39 | XMS_ITS | Clinical Summary ---
Author Organization [facility] Prior to 06/09/2024 Address [address] [place] [address] Care Team Providers Care Locker Attendant Name Role Phone [facility], Pcp Primary Care [...] 60.0-69.9, ad ult 07/15/2011 Overview: Following with [facility] History of ETOH abuse 07/15/2011 Asthma 11/30/2005 Resolved Problems Problem Noted Date Resolved Date Acanthosis nigricans 12/20/2009 12/02/2021 Dysmenorrhea in the adolescent 07/08/2009 0 12/02/2021 Obesity, unspecified 05/19/2006 07/15/2011 Routine or child health check 11/30/2005 12/02/2021 Immunizations Name Administration Dates Next Due COVID-19 (Moderna) 09/11/2021,08/14/2021 DTP 03/30/1997, 4,1992,08/14,1992 Flu (Generic) 06/05/2011 HIB 07/09/1993, 3,1992,06/12 HPV (Gardasil) 12/06/2007,08/03/2007,05/26/2007 Hepatitis B-3 Dose (<19yrs) 04/16/1993, 2,1992 Influenza (> 6 Months) 06/25/2014,2012,05/11/2012,06/06,06/24/2010,05/28/2008,05/26/2007 ,05/19/2006,05/20/2005 Influenza H1N1 Pandemic Flu Vaccine 07/08/2009 Influenza Vaccine-preservati ve Free-quadrivalent 4 Years 04/22/2022,07/18/2020,08/22/2019 MMR (Lnvcotb-Uxyka-Yvrfini) 03/30/1997, 3 Meningococcal (Menactra) 05/26/2007 PPD-RBMG 10/28/2012 Pneumoccoccal(Adult) Polysac charide PPSV23 06/05/2011 Polio (OPV) 03/30/1997, 4,1992,08/14,1992 TD (STATE SUPPLIED FOR ADULT S AND CHILDREN) 05/05/2004 Tdap 07/08/2009 Varicella 07/08/2009,04/11/2002 Family History Medical History Relation Name Comments cerebral palsy Aunt maternal Asthma Brother 1/2 siblings Crohn's disease Asthma Father thyroid issues, drug/EtOH abuse, anxiety/depression NH Maternal Grandfather EtOH ab use; dementia? Hypercholesterolemia [...] 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, PIPELINE MAINTENANCE SUPERVISOR, DEE DEE) 09/14/2022 Sex Assigned at Date Recorded Female 01/12/2022 9:59 PM E DT Job Start Date Occupation Industry Not on file Not on file Not on file Last Filed Vital Signs Vital Sign Reading Time Taken Comments Blood Pressure 90/60 11/12/2022 9:31 AM EDT Pulse 100 11/12/2022 9:31 AM EDT Temperature 36.4 C (97.6 F) 11/12/2022 9:31 AM EDT Respiratory Rate 14 11/12/2022 9:31 AM EDT [...] per patient), 07/08/2009, 05/05/2004, Additional history exists BMI CHECK/ADVISE 08/09/2024 09/01/2023, 01/2023, 09/14/2022, Additional history exists Covid-19 Vaccine (2022-2 4 season) 2025 09/11/2021, 08/14/2021 INFLUENZA (#1) 2025 04/22/2022, 07/09, 08/22/2019, Additional history exists CERVICAL CANCER SCREENING 09/01/20262023, 03/05/2021, 06/09/2018, Additional history exists BASELINE HEALTH EXAM 18-39 09/15/202709/15, 09/14/2022, 03/25/2021, Additional history exists CHOLESTEROL SCREENING 09/15/2027 09/15/2022 , 03/25/2021, 08/22/2019, Additional history exists PNEUMOCOCCAL VACCINE FOR HIG H RISK PATIENTS (#2) 2057 06/05/2011 Additional Health Concerns Infection Onset Date Last Indicated COVID-19 05/05/2022 05/05/2022 Care Teams Locker Attendant Relationship Specialty Start Date End Date [facility], Pcp PCP - General Internal Medicine 05/22/24
--- OUTSIDE RECORDS SUMMARY | 2025-07-26 10:39 | XMS_ITS | Encounter Summary ---
Author Organization [facility] Prior to 06/09/2024 Address [address] [place] [address] Care Team Providers Care Medical Physicist Name Role Phone Vika Restrepo MD Primary Care Provider Thang allen [facility], Pcp Primary Care Provider Cierra Bravo MD Primary Care Provider [phone] Cris Hernández MD Primary Care Provider [phone] [facility], Pcp Primary Care Provider Unavailtrista e Encounter Details Date Type Department Care Team Description 09/04/2019 Telephone Internal Medicine - [address], [address] [place] [address] Vi King, MS,RDN,LDN Social History Tobacco Use Types Packs/Day Years [...] as of this encounter Care Teams Medical Physicist Relationship Specialty Start Date End Date Vika Restrepo MD PCP - General Internal Medicine 08/28/15 02/06/21 [facility], Pcp PCP - General Internal Medicine 02/07/21 02/23/21 Cierra Lizarraga MD [address] [place] [address] PCP - General Internal Medicine 02/24/21 09/13/22 Cris Hernández MD [address] [place] [address] PCP - General Internal Medicine 09/14/22 05/21/24 [facility], Pcp PCP - General Internal Medicine 05/22/24 documented as of this encounter
--- OUTSIDE RECORDS SUMMARY | 2025-07-26 10:39 | XMS_ITS | Encounter Summary ---
Author Organization [facility] [employer] [facility] Prior to 06/09/2024 Address [address] [place] [address] Care Team Providers Care Athletic Team Physician Name Role Phone Aleksandar So MD Primary Care Provider Un available Jaya Burnham MD Primary Care Provider Unavail able Vika Restrepo MD Primary Care Provider Unavaila [facility], Pcp Primary Care Provider Unavailabl e Cierra Lizarraga MD Primary Care Provider [phone] Cris Hernández MD Primary Care Provider [phone] [facility], Pcp Primary Care Provider Unavailabl e Encounter Details Date Type Department Care Team Description 09/02/2011 Team Automobile Assembler Report Medical Records [address] [place] [id number] Daniel Pate MD Social History Tobacco Use Types Packs/Day [...] documented as of this encounter Care Teams Athletic Team Physician Relationship Specialty Start Date End Date Aleksandar So MD PCP - General 09/04/1997 10/18/12 Jaya Burnham MD PCP - General Internal Medicine 10/19/12 08/27/15 Vika Restrepo MD PCP - General Internal Medicine 08/28/15 02/06/21 [facility], Pcp PCP - General Internal Medicine 02/07/21 02/23/21 Cierra Lizarraga MD [address] [place] [id number] PCP - General Internal Medicine 02/24/21 09/13/22 Cris Hernández MD [address] [place] [id number] PCP - General Internal Medicine 09/14/22 05/21/24 [facility], Pcp PCP - General Internal Medicine 05/22/24 documented as of this encounter
--- OUTSIDE RECORDS SUMMARY | 2025-07-26 10:39 | XMS_ITS | Encounter Summary ---
Author Organization [facility] Prior to 06/09/2024 Address [address] [place] [address] Care Team Providers Care Manager Code Name Role Phone Aleksandar So MD Primary Care Provider Un available Jaya Burnham MD Primary Care Provider Unavail able Vika Restrepo MD Primary Care Provider Unavaila [facility], Pcp Primary Care Provider Unavailabl e Cierra Lizarraga MD Primary Care Provider Cris Hernández MD Primary Care Provider [phone] [facility], Pcp Primary Care Provider Unavailabl e Reason for Visit * Reason Onset Date Comments Nurse Triage Follow-up 06/11/2011 Encounter Details Date Type Department Care Team Description 06/11/2011 Telephone Pediatrics - [place] [address] [place] [address] Tera Key MD Nurse Triage Follow-up Social [...] EST Below noted. Any further plans via [facility] P[facility], Aleksandar So MD * Telephone Encounter - Criselda AceP.N. - 06/12/2011 10:57 AM EDT I spoke with Miriam; states that she did not go back to [facility] ER yesterday. Patient states that the [...] afternoon and referred Miriam back to the [facility] ER for surgical re-evaluationthimilan rees. We contacted peds surgery who felt that given her age Miriam would best be served by adult general surgery. The staff contacted [facility] adult general surg. The attending requested a copy of my notes from today. We faxed those along with a copy of the [facility] hospital d/c note. The surgeon's office replied that they would see her on 06/22/2011. I discussed this with Dr Juni Donahue at [facility], peds hospitalist, who participated in Miriam's care in [facility]. He agreed that she should be re-evaluated sooner than 11 days from now. He suggested she be referred back to [facility] via the ER. I spoke with triage nurse at [facility] ER. She agreed to look for Miriam and triage her so that she can be reassessed thiseve. documented in this encounter Plan of Treatment Not on file documented as of this encounter Visit Diagnoses Not on filedocumented in this encounter Additional Health Concerns Infection Onset Date Last Indicated Resolved Time COVID-19 05/05/2022 05/05/2022 documented as of this encounter Care Teams Manager Code Relationship Specialty Start Date End Date Aleksandar So MD PCP - General 09/04/1997 10/18/12 Jaya Burnham MD PCP - General Internal Medicine 10/19/12 08/27/15 Vika Restrepo MD PCP - General Internal Medicine 08/28/15 02/06/21 [facility], Pcp PCP - General Internal Medicine 02/07/21 02/23/21 Cierra Lizarraga MD [address] [place] [id number] PCP - General Internal Medicine 02/24/21 09/13/22 Cris Hernández MD [address] [place] [id number] PCP - General Internal Medicine 09/14/22 05/21/24 [facility], Pcp PCP - General Internal Medicine 05/22/24 documented as of this encounter
== END 2025-07-26 09:54 | disposition home or self-care (01) ==
LOC: HO.HMCFM 09:17
PROVIDERS: PCP Physician Assistant Medical; Visit Provider Physician Assistant Medical
DX: D64.9 Anemia, unspecified (principal); R94.4 Abnormal results of kidney function studies; J45.30 Mild persistent asthma, uncomplicated; G47.33 Obstructive sleep apnea (adult) (pediatric); I42.9 Cardiomyopathy, unspecified; E66.01 Morbid (severe) obesity due to excess calories; F33.9 Major depressive disorder, recurrent, unspecified